=== PATIENT | male | born 1955 | race Caucasian/White ===

== ENCOUNTER → 2016-06-20 | Outpatient (CLI) | payer MEDICARE, OTHER ==
[~2016-06-20] MED LIST: BUTA1CAP5 PO; CARB200T PO; CITA40TA4 PO; LEVE500T8 PO; LISI-515 PO; TRAM50TA PO; XARE20TA PO; ZONE100C4 PO
[2016-06-20 12:45] LABS: HEMATOCRIT 40.8 % (39.0-51.0); MEAN CELL VOLUME 86.2 FL (80.0-100.0); MEAN CORPUSCULAR HEMOGLOBIN 29.2 PG (27.0-34.0); MEAN CORPUSCULAR HGB CONC 33.9 % (32.0-36.0); PLATELET COUNT 349 TH/MM3 (150-450); RED BLOOD COUNT 4.73 MIL/MM3 (4.50-5.90); RED CELL DISTRIBUTION WIDTH 14.5 % (11.6-17.2); REVIEW FLAG FINAL; WHITE BLOOD COUNT 6.1 TH/MM3 (4.0-11.0)
[2016-06-20 13:10] LABS: ANION GAP 10 MEQ/L (5-15); BICARBONATE 22.9 MEQ/L (21.0-32.0); BLOOD UREA NITROGEN 15 MG/DL (7-18); CHLORIDE 107 MEQ/L (98-107); GLUCOSE,FASTING 105 MG/DL (74-99); POTASSIUM 3.4 MEQ/L (3.5-5.1); SODIUM (NA) 140 MEQ/L (136-145)
[2016-06-20 13:20] LABS: ALKALINE PHOSPHATASE 123 U/L (45-117); ALT (GPT) 24 U/L (12-78); AST (GOT) 15 U/L (15-37); GLOMERULAR FILTRATION RATE 67 ML/MIN (>89); TOTAL BILIRUBIN ADULT 0.3 MG/DL (0.2-1.0)
== END ==
LOC: ELAB 10:53
PROVIDERS: ATTEND Specialist
DX: R53.81 Other malaise (principal); R53.83 Other fatigue; G93.3 Postviral and related fatigue syndromes; E88.9 Metabolic disorder, unspecified; Z79.891 Long term (current) use of opiate analgesic; Z51.81 Encounter for therapeutic drug level monitoring
CPT/HCPCS: 36415; 80053; 80156; 85027

== ENCOUNTER 2016-11-01 09:37 | Observation (INO) | payer MEDICARE, OTHER ==
[2016-11-01] VITALS (8 sets, daily range): BP systolic 106–159; BP diastolic 55–93; PULSE 59–100; RESP 18–32; TEMP 97.6–98.9; O2SAT 95–99
[~2016-11-01] VITALS: Ht 172.7 cm; Wt 146.0 kg
[2016-11-01] MEDS ORDERED: SODIUM CHLORIDE 0.9% FLUSH 10 ML FLUSH IVF PRN (10:00)
--- NOTE | 2016-11-01 10:17 | PD ---
HPI Chief Complaint: Cold / Flu Symptoms Time Seen by Provider: 09:48 Travel History International Travel<30 days: No Contact w/Intl Traveler<30days: No Traveled to known affect area: No History of Present Illness HPI 61 yo M arrives by EMS. He reports dyspnea while laying in bed this morning essentially waking him up from sleep. He developed chest pressure, retrosternal , non-radiating of moderate severity at about the same time, which was about 5 hours prior to ER arrival. Occasional cough, productive with white phlegm, is noted by patient over the past few days. Additionally, he reports rhinorrhea and nasal congestion. No fever reported. Pt quite smoking > 30 years ago. + hx HTN. 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 PMH includes DVT. No DM or personal hx CAD. He reports multiple family members with history CAD. No pleuritic component. PFSH Past Medical History Blood Disorders: No Anxiety: Yes Depression: Yes Cancer: No Cardiovascular Problems: No Cerebrovascular Accident: No Diminished Hearing: No Deep Vein Thrombosis: Yes Endocrine: No Genitourinary: No Headaches: No Hypertension: Yes Immune Disorder: No Musculoskeletal: No Neurologic: Yes Psychiatric: Yes Reproductive: No Respiratory: No Migraines: Yes Seizures: Yes Tetanus Vaccination: < 5 Years Influenza Vaccination: No Past Surgical History Abdominal Surgery: Yes ([place] IN ) AICD: No Arteriovenous Shunt: No Cardiac Surgery: No Cholecystectomy: Yes (1978) Ear Surgery: No Endocrine Surgery: No Eye Surgery: No Genitourinary Surgery: No Gynecologic Surgery: No Insulin Pump: No Joint Replacement: No Oral Surgery: No Pacemaker: No Thoracic Surgery: No Other Surgery: Yes ([place]IG[place] IN ) Social History Alcohol Use: Yes Tobacco Use: No (QUIT 1984, DIP CURRENTLY) Substance Use: No Allergies-Medications (Allergen,Severity, Reaction): Coded Allergies: No Known Allergies (Verified , 11/01/16) Reported Meds & Prescriptions Reported Meds & Active Scripts Active Reported Gdysovgvpw-Syfuxrhmzyenj-Qhsnrcfc 50-300-40 Mg Cap 1 Cap PO Q4H PRN Do not exceed 6 capsules/day. Tramadol (Tramadol HCl) 50 Mg Tab 50 Mg PO Q8H PRN Zonegran (Zonisamide) 100 Mg Cap 100 Mg PO QID Carbamazepine 200 Mg Tab 200 Mg PO TID Levetiracetam 500 Mg Tab 500 Mg PO BID Xarelto (Rivaroxaban) 20 Mg Tab 20 Mg PO DAILY Citalopram (Citalopram Hydrobromide) 40 Mg Tab 40 Mg PO DAILY Lisinopril 20 Mg Tab 20 Mg PO DAILY Review of Systems Except as stated in HPI: all other systems reviewed are Neg General / Constitutional: No: Fever Cardiovascular: Positive: Chest Pain or Discomfort Respiratory: Positive: Cough, Shortness of Breath Gastrointestinal: No: Nausea Physical Exam Narrative GENERAL: 61 yo M, WNWD, NAD, speaking full sentences, audible nasal congestion during speech SKIN: Warm and dry. HEAD: Atraumatic. Normocephalic. EYES: Pupils equal and round. No scleral icterus. No injection or drainage. ENT: No nasal bleeding or discharge. Mucous membranes pink and moist. NECK: Trachea midline. No JVD. CARDIOVASCULAR: tachycardia. regular rhythm. RESPIRATORY: lung clear. no tachypnea. GASTROINTESTINAL: Abdomen soft, non-tender, nondistended. Hepatic and splenic margins not palpable. MUSCULOSKELETAL: Extremities without clubbing, cyanosis, or edema. No obvious deformities. NEUROLOGICAL: Awake and alert. No obvious cranial nerve deficits. Motor grossly within normal limits. Five out of 5 muscle strength in the arms and legs. Normal speech. PSYCHIATRIC: Appropriate mood and affect; insight and judgment normal. Data Data Last Documented VS Vital Signs Date Time Temp Pulse Resp B/P Pulse Ox O2 Delivery O2 Flow Rate FiO2 11/01/16 10:00 32 96 Room Air 11/01/16 09:46 98.7 100 159/93 VS reviewed Orders Electrocardiogram (11/01/16 09:48) Basic Metabolic Panel (Bmp) (11/01/16 09:48) Ckmb (Isoenzyme) Profile (11/01/16 09:48) Complete Blood Count With Diff (11/01/16 09:48) Magnesium (Mg) (11/01/16 09:48) Prothrombin Time / Inr (Pt) (11/01/16:48) Act Partial Throm Time (Ptt) (11/01/16 09:48) Troponin I (11/01/16 09:48) Chest, Single Ap (11/01/16 09:48) Ecg Monitoring (11/01/16 09:48) Iv Access Insert/Monitor (11/01/16:48) Oximetry (11/01/16 09:48) Oxygen Administration (11/01/16 09:48) Sodium Chloride 0.9% Flush (Ns Flush) (11/01/16 10:00) CKMB (11/01/16 10:00) CKMB% (11/01/16 10:00) Activity Bed Rest With Brp (11/01/16 10:56) Vital Signs (Adult) Q4H (11/01/16 10:56) Cardiac Rhythm .As Directed (11/01/16 10:56) Notify Dr: Other .PRN (11/01/16 10:56) Notify DrWei Parameters (11/01/16 10:56) Resp Oxygen Nasal Cannula (11/01/16 ) Ckmb (Isoenzyme) Profile (11/01/16 10:56) Ckmb (Isoenzyme) Profile (11/01/16 13:56) Troponin I (11/01/16 10:56) Troponin I (11/01/16 13:56) Electrocardiogram (11/01/16 10:56) Electrocardiogram (11/01/16 13:56) ^ Obtain (11/01/16 10:56) Sodium Chloride 0.9% Flush (Ns Flush) (11/01/16 11:00) Sodium Chloride 0.9% Flush (Ns Flush) (11/01/16 21:00) Acetamin-Hydrocod 325-7.5 Mg ([place] 7.5 (11/01/16 11:00) Morphine Inj (Morphine Inj) (11/01/16 11:00) Ondansetron Inj (Zofran Inj) (11/01/16 11:00) Nitroglycerin Sl (Nitrostat Sl) (11/01/16 11:00) Aspirin (Aspirin) (11/02/16 09:00) Solution Architect / Telemetry ROSA.Q8H (11/01/16 10:56) Admit Order (Ed Use Only) (11/01/16 10:56) Labs Laboratory Tests Test 11/01/16 10:00 White Blood Count 6.8 TH/MM3 Red Blood Count 4.58 MIL/MM3 Hemoglobin 13.6 GM/DL Hematocrit 40.3 % Mean Corpuscular Volume 88.0 FL Mean Corpuscular Hemoglobin 29.7 PG Mean Corpuscular Hemoglobin 33.7 % Concent Red Cell Distribution Width 14.1 % Platelet Count 368 TH/MM3 Mean Platelet Volume 7.2 FL Neutrophils (%) (Auto) 53.4 % Lymphocytes (%) (Auto) 20.9 % Monocytes (%) (Auto) 14.7 % Eosinophils (%) (Auto) 9.8 % Basophils (%) (Auto) 1.2 % Neutrophils # (Auto) 3.6 TH/MM3 Lymphocytes # (Auto) 1.4 TH/MM3 Monocytes # (Auto) 1.0 TH/MM3 Eosinophils # (Auto) 0.7 TH/MM3 Basophils # (Auto) 0.1 TH/MM3 CBC Comment DIFF FINAL Differential Comment Prothrombin Time 10.9 SEC Prothromb Time International 1.0 RATIO Ratio Activated Partial 32.2 SEC Thromboplast Time Sodium Level 136 MEQ/L Potassium Level 4.0 MEQ/L Chloride Level 105 MEQ/L Carbon Dioxide Level 22.8 MEQ/L Anion Gap 8 MEQ/L Blood Urea Nitrogen 11 MG/DL Creatinine 1.15 MG/DL Estimat Glomerular Filtration 64 ML/MIN Rate Random Glucose 104 MG/DL Calcium Level 9.4 MG/DL Magnesium Level 2.0 MG/DL Total Creatine Kinase 197 U/L Creatine Kinase MB 0.6 NG/ML Troponin I 0.02 NG/ML MDM Medical Decision Making Medical Screen Exam Complete: Yes Emergency Medical Condition: Yes Medical Record Reviewed: Yes Differential Diagnosis NSTEMI, unstable angina, coronary vasospasm, PE, PTX, aortic dissection, pericarditis, myocarditis, endocarditis, PNA, esophageal disease, aneurysm, musculoskeletal etiologies, anxiety, cocaine/sympathomimetic abuse Narrative Course CBC & BMP Diagram 11/01/16 10:00 EKG reveals a sinus rhythm with a right bundle-branch block pattern Tn 0.02 Last 24 hours Impressions Chest X-Ray 11/01/16 0948 Signed Impressions: Service Date/Time: Tuesday, November 01, 2016 09:54 - CONCLUSION: No acute disease. Casey Foster MD This is likely having postnasal drip with cough. OTC interventions discussed with patient at bedside. Troponin measurable at 0.02 with symptoms and risk factors suggests chest pain center evaluation to be most reasonable next step. Diagnosis Primary Impression: Chest pain Qualified Code: R07.9 - Chest pain, unspecified type Additional Impression: Nasal congestion Admitting Information Admitting Physician Requests: Observation Fahad Denise MD Nov 01, 2016 10:17
[2016-11-01 10:19] LABS: AUTOMATED NEUTROPHIL # 3.6 TH/MM3 (1.8-7.7); BASOPHIL # 0.1 TH/MM3 (0-0.2); BASOPHIL % 1.2 % (0.0-2.0); EOSINOPHIL # 0.7 TH/MM3 (0-0.4); EOSINOPHIL % 9.8 % (0.0-4.0); HEMATOCRIT 40.3 % (39.0-51.0); HEMO FLAGS DIFF FINAL; LYMPH % 20.9 % (9.0-44.0); LYMPHOCYTE # 1.4 TH/MM3 (1.0-4.8); MEAN CORPUSCULAR HEMOGLOBIN 29.7 PG (27.0-34.0); MEAN CORPUSCULAR HGB CONC 33.7 % (32.0-36.0); MONO % 14.7 % (0.0-8.0); NEUT % 53.4 % (16.0-70.0); PLATELET COUNT 368 TH/MM3 (150-450); RED BLOOD COUNT 4.58 MIL/MM3 (4.50-5.90); RED CELL DISTRIBUTION WIDTH 14.1 % (11.6-17.2); WHITE BLOOD COUNT 6.8 TH/MM3 (4.0-11.0)
--- NOTE | 2016-11-01 10:19 | RADRPT ---
EXAM DATE/TIME: 11/01/2016 09:54 [facility] COMPARISON: No previous studies available for comparison. INDICATIONS : Short of breath with wheezing. MEDICAL HISTORY : None. SURGICAL HISTORY : None. ENCOUNTER: Initial ACUITY: 2 days PAIN SCORE: 0/10 LOCATION: Bilateral chest FINDINGS: A single view of the chest demonstrates the lungs to be symmetrically aerated without evidence of mas s, infiltrate or effusion. The cardiomediastinal contours are unremarkable. Osseous structures are intact. There are multiple old healed bilateral rib fractures. CONCLUSION: No acute disease. Casey Foster MD on November 01, 2016 at 10:17 Board Certified Radiologist. This report was verified electronically.
[2016-11-01 10:26] LABS: APTT (PATIENT) 32.2 SEC (24.3-30.1); PROTHROMBIN TIME - PATIENT 10.9 SEC (9.8-11.6)
[2016-11-01 10:37] LABS: CREATINE KINASE 197 U/L (39-308)
[2016-11-01 10:50] LABS: CKMB 0.6 NG/ML (0.5-3.6)
[2016-11-01 10:51] LABS: ANION GAP 8 MEQ/L (5-15); BICARBONATE 22.8 MEQ/L (21.0-32.0); BLOOD UREA NITROGEN 11 MG/DL (7-18); CHLORIDE 105 MEQ/L (98-107); GLOMERULAR FILTRATION RATE 64 ML/MIN (>89); SODIUM (NA) 136 MEQ/L (136-145)
[2016-11-01] MEDS ORDERED: MORPHINE SULFATE 4 MG/ML INJ IV PRN (11:00)
[2016-11-01] MEDS ORDERED: ACETAMINOPHEN/HYDROcodone 325 MG/7.5 MG TAB PO PRN (11:00)
[2016-11-01] MEDS ORDERED: SODIUM CHLORIDE 0.9% FLUSH 10 ML FLUSH IV FLUSH PRN (11:00)
[2016-11-01] MEDS ORDERED: NITROGLYCERIN 0.4 MG SL 25 TABS/BTL SL PRN (11:00)
[2016-11-01] MEDS ORDERED: ONDANSETRON HCL 4 MG/2 ML VIAL IV PRN (11:00)
--- NOTE | 2016-11-01 13:50 | EKG ---
Date Performed: 11/01/2016 Time Performed: 09:56:14 PTAGE: 61 years EKG: Sinus rhythm RIGHT BUNDLE BRANCH BLOCK ABNORMAL ECG Compared to prior tracing no significant change PREVIOUS TRACING : 03/03/2016 17.11 DOCTOR: Lew Burrows Interpretating Date/Time 11/01/2016 13:49:30
[2016-11-01] MEDS ORDERED: FUROSEMIDE 20 MG/2 ML VIAL IV PUSH ONE (14:00)
--- NOTE | 2016-11-01 14:09 | HHI.HP ---
[facility] Primary Care Physician Ruel Cavazos, PhD, MD Chief Complaint Chest pain History of Present Illness 61-year-old male with history of hypertension, seizure disorder, depression, anxiety presents to emergency room for further evaluation of chest pain. States 2 days ago he developed chest congestion, a nonproductive cough, and sinus drainage. Yesterday afternoon he developed substernal chest pain with coughing. Characterized as sharp. No radiation of pain. Duration last only when coughs,quickly relieved after coughing episode over. No associated symptoms of nausea, vomiting, diaphoresis, or shortness of breath. Precipitating factors he states "having a cold." No known relieving factors. He started taking wzve-vot-fdgxufr cold medications yesterday. (Cathie Richardson) Review of Systems General: No fatigue, weakness, fever, chills, or change in appetite. Recent illness 2 days described as sinus and chest congestion accompanied with a cough. HEENT: Sinus congestion and nasal drainage 2 days. No N[place]ON, no vision changes, no dysphasia CV: As stated above. Denies any current chest pain or pressure. Chest pain only occurs when coughing. Denies chest pain with exertion or at rest. No personal history of coronary artery disease or congestive heart failure. RESP: Nonproductive cough 2 days, this afternoon began to cough white, thick sputum. No SOB, wheeze, or hemoptysis. No history of asthma. History of Sleep apnea. GI: No nausea, vomiting, bowel changes, or diarrhea reports chronic constipation , moves bowels every 3 days. Last bowel movement 2 days ago. No distention, melena, or blood in the stool. : No dysuria, urgency, frequency, or history of kidney stones EXT: Chronic bilateral lower leg edema, no paraesthesias MS: No discomfort or change in ROM. Ambulates independently without a cane or walker. Has a caregiver daily for 6 hours to assist with ADLs. NEURO: History of seizures. Last seizure reported to be in 2014. No difficulty with balance, LOC, motor/sensory deficits PSYCH: History of anxiety and depression. SKIN: No rashes, no concerning lesions (Cathie Richardson) Past Family Social History Allergies: Coded Allergies: No Known Allergies (Verified , 11/01/16) Past Medical History Seizure disorder, hypertension, DVT, depression, anxiety, psychiatric issues, sleep apnea Past Surgical History Cholecystectomy, right ankle ORIF Reported Medications Active Reported Zvwwdfjkvb-Lhyaohfytijfz-Nwlzbwtx 50-300-40 Mg Cap 1 Cap PO Q4H PRN Do not exceed 6 capsules/day. Tramadol (Tramadol HCl) 50 Mg Tab 50 Mg PO Q8H PRN Zonegran (Zonisamide) 100 Mg Cap 100 Mg PO QID Carbamazepine 200 Mg Tab 200 Mg PO TID Levetiracetam 500 Mg Tab 500 Mg PO BID Xarelto (Rivaroxaban) 20 Mg Tab 20 Mg PO DAILY Citalopram (Citalopram Hydrobromide) 40 Mg Tab 40 Mg PO DAILY Lisinopril 20 Mg Tab 20 Mg PO DAILY Active Ordered Medications Current Medications Medications (Trade) Dose Ordered Sig/Sydnie Route Start Time Stop Time Status Last Admin (NS Flush) 2 ml UNSCH PRN IVF 11/01/16 10:00 (NS Flush) 2 ml UNSCH PRN IV FLUSH 11/01/16 11:00 (NS Flush) 2 ml BID IV FLUSH 11/01/16 21:00 ([place] 7.5-325 Mg) 1 tab Q4H PRN PO 11/01/16 11:00 (Morphine Inj) 2 mg Q4H PRN IV 11/01/16 11:00 (Zofran Inj) 4 mg Q6H PRN IV 11/01/16 11:00 (Nitrostat Sl) 0.4 mg Q5M PRN SL 11/01/16 11:00 (Aspirin) 325 mg DAILY PO 11/02/16 09:00 (Lasix Inj) 20 mg ONCE ONCE IV PUSH 11/01/16 14:00 11/01/16 14:01 UNV Family History Noncontributory for early onset cardiovascular disease Social History Known hypertension. No known diabetes, personal coronary artery disease, or hyperlipidemia. Chews tobacco. Quit smoking tobacco "years ago." Denies any alcohol or illegal drug use. Has a daily caregiver to assist with ADLs. Ambulates independently without a cane or walker. Past cardiac testing None (Cathie Richardson) Physical Exam Vital Signs Vital Signs Date Time Temp Pulse Resp B/P Pulse Ox O2 Delivery O2 Flow Rate FiO2 11/01/16 12:51 93 11/01/16 12:27 97.9 87 22 133/80 99 11/01/16 12:11 96 11/01/16 12:03 86 28 137/89 96 Room Air 11/01/16 10:00 32 96 Room Air 11/01/16 09:46 98.7 100 32 159/93 96 Physical Exam GENERAL: Alert WN, WD, NAD, obese male who appears older than stated age. HEAD: NC, AT EYES: Sclera clear, conjunctiva without injection, pupils equal and round ENT: Mucous membranes pink and moist, post nasal discharge, no bleeding NECK: Supple, no masses, trachea midline CV: RRR, without murmur, rub, gallop, no JVD, S1-S2 no S3-S4. No carotid bruits. RESP: Rhonchi bilateral, inspiratory and expiratory wheeze, no rails. symmetrical chest rise, nonlabored, able to speak in full sentences ABD: Soft, NT, ND, no masses, positive bowel tones, obese EXT: Pulses +14, +1 pitting dependent edema MS: Normal tone 4 extremities, nontender, no obvious deformities, full range of motion NEURO: CN II through CN XII grossly intact, motor strength 5/5, gait WNL PSYCH: A+O 3, appropriate speech, appropriate mood and affect, insight and judgment SKIN: Normal turgor, normal texture, no lesions, no rashes, brisk cap refill, thick toenails Laboratory Laboratory Tests Test 11/01/16 10:00 White Blood Count 6.8 Red Blood Count 4.58 Hemoglobin 13.6 Hematocrit 40.3 Mean Corpuscular Volume 88.0 Mean Corpuscular Hemoglobin 29.7 Mean Corpuscular Hemoglobin 33.7 Concent Red Cell Distribution Width 14.1 Platelet Count 368 Mean Platelet Volume 7.2 Neutrophils (%) (Auto) 53.4 Lymphocytes (%) (Auto) 20.9 Monocytes (%) (Auto) 14.7 Eosinophils (%) (Auto) 9.8 Basophils (%) (Auto) 1.2 Neutrophils # (Auto) 3.6 Lymphocytes # (Auto) 1.4 Monocytes # (Auto) 1.0 Eosinophils # (Auto) 0.7 Basophils # (Auto) 0.1 CBC Comment DIFF FINAL Differential Comment Prothrombin Time 10.9 Prothromb Time International 1.0 Ratio Activated Partial 32.2 Thromboplast Time Sodium Level 136 Potassium Level 4.0 Chloride Level 105 Carbon Dioxide Level 22.8 Anion Gap 8 Blood Urea Nitrogen 11 Creatinine 1.15 Estimat Glomerular Filtration 64 Rate Random Glucose 104 Calcium Level 9.4 Magnesium Level 2.0 Total Creatine Kinase 197 Creatine Kinase MB 0.6 Troponin I 0.02 (Cathie Richardson) Result Diagram: 11/01/16 1000 11/01/16 1000 Imaging Last Impressions Chest X-Ray 11/01/16 0948 Signed Impressions: Service Date/Time: Tuesday, November 01, 2016 09:54 - CONCLUSION: No acute disease. Casey Foster MD Course EKG NSR, right bundle branch block (Cathie Richardson) Assessment and Plan Assessment and Plan Atypical chest painadmitted to chest pain center. Seen and evaluated by Dr. Law. Will rule out with 3 sets of EKGs and cardiac enzymes. If ruled out will discharge later this afternoon without further cardiac testing. Patient agreeable to plan a care. Viral syndromeguaifenesin 200 mg 1 dose. Symptom management of getting plenty of fluids and rest. Encouraged a low sodium diet and weight reduction. (Cathie Richardson) Assessment and Plan Patient seen with LUNG SPLITTER and examined. H&P as outlined above is appropriate and accurate. Discussed together and plan reviewed and agree with. (Nate Law MD) Cathie Richardson Nov 01, 2016 14:09 Nate Law MD Nov 01, 2016 15:21
[2016-11-01 14:38] LABS: CREATINE KINASE 210 U/L (39-308)
[2016-11-01 14:50] LABS: CKMB 0.5 NG/ML (0.5-3.6)
[2016-11-01] MEDS ORDERED: guaiFENesin SOLUTION 200 MG/10 ML CUP PO ONE (16:00)
[2016-11-01 18:11] LABS: CREATINE KINASE 89 U/L (39-308)
--- NOTE | 2016-11-01 18:13 | HHI.DCPOC ---
Discharge Care Plan Diagnosis: (1) Atypical chest pain (2) Viral syndrome Goals to Promote Your Health * To prevent worsening of your condition and complications * To maintain your health at the optimal level Directions to Meet Your Goals Take your medications as prescribed Follow your dietary instruction Follow activity as directed Keep your appointments as scheduled Take your immunizations and boosters as scheduled If your symptoms worsen call your PCP, if no PCP go to Urgent Care Center or Emergency Room Smoking is Dangerous to Your Health. Avoid second hand smoke Call the 24-hour hour crisis hotline for domestic abuse at Cathie Richardson Nov 01, 2016 18:13
[2016-11-01] MEDS ORDERED: SODIUM CHLORIDE 0.9% FLUSH 10 ML FLUSH IV FLUSH SCH (21:00)
[2016-11-02] MEDS ORDERED: ASPIRIN 325 MG TAB PO SCH (09:00)
--- NOTE | 2016-11-02 16:30 | EKG ---
Date Performed: 11/01/2016 Time Performed: 17:37:24 PTAGE: 61 years EKG: Sinus rhythm RIGHT BUNDLE BRANCH BLOCK ABNORMAL ECG PREVIOUS TRACING : 11/01/2016 13.15 Compared to prior tracing no significant change DOCTOR: Manjit Denise Interpretating Date/Time 11/02/2016 16:29:11
--- NOTE | 2016-11-02 16:55 | EKG ---
Date Performed: 11/01/2016 Time Performed: 13:15:34 PTAGE: 61 years EKG: Sinus rhythm RIGHT BUNDLE BRANCH BLOCK ABNORMAL ECG PREVIOUS TRACING : 11/01/2016 09.56 Compared to prior tracing no significant change DOCTOR: Manjit Denise Interpretating Date/Time 11/02/2016 16:53:26
== END 2016-11-01 18:23 | disposition home or self-care (01) ==
LOC: NEPD 09:37 → NEDA 10:58 → NEPFCDU 12:14
PROVIDERS: ADMIT Internal Medicine Interventional Cardiology; ATTEND Internal Medicine Interventional Cardiology
DX: R07.89 Other chest pain (principal); B34.9 Viral infection, unspecified; I45.10 Unspecified right bundle-branch block; R05 Cough; R09.89 Other specified symptoms and signs involving the circulatory and respiratory systems; R07.2 Precordial pain; R09.81 Nasal congestion; R00.0 Tachycardia, unspecified; R94.31 Abnormal electrocardiogram [ECG] [EKG]; R09.82 Postnasal drip; R60.0 Localized edema; R06.02 Shortness of breath; R06.2 Wheezing; R06.00 Dyspnea, unspecified; I10 Essential (primary) hypertension; G40.909 Epilepsy, unspecified, not intractable, without status epilepticus; G43.909 Migraine, unspecified, not intractable, without status migrainosus; F32.9 Major depressive disorder, single episode, unspecified; F41.9 Anxiety disorder, unspecified; F17.220 Nicotine dependence, chewing tobacco, uncomplicated; Z79.899 Other long term (current) drug therapy; Z79.01 Long term (current) use of anticoagulants; Z82.49 Family history of ischemic heart disease and other diseases of the circulatory system
CPT/HCPCS: 71010; 80048; 82550; 82552; 83735; 84484; 85025; 85610; 85730; 93005; 99285; G0378; J1940

== ENCOUNTER 2017-02-21 11:27 | Emergency (ER) | payer MEDICARE, OTHER ==
[~2017-02-21] VITALS: Ht 170.2 cm; Wt 140.0 kg
[~2017-02-21 11:27] MED LIST changes: -ZONE100C4 PO; +ZONI1CAP17 PO
[2017-02-21 11:30] VITALS: BP 222/113; PULSE 81; RESP 19; TEMP 98.6; O2SAT 98
--- NOTE | 2017-02-21 12:03 | PD ---
HPI Chief Complaint: Musculoskeletal Complaint Time Seen by Provider: 11:51 Travel History International Travel<30 days: No Contact w/Intl Traveler<30days: No Traveled to known affect area: No History of Present Illness HPI 61-year-old male complains of neck pain. Patient has history of neck pain for the past 2 years. Patient has been seen by personal physician for that. Patient also has chronic dry cough. Patient's unable to tell me how long the cough has been going on. Patient has history of seizure, CAD. Patient unable to tell me what medication he is on. Patient denies any headache. Patient denies any chest pain or shortness of breath. Patient denies abdominal pain. Patient denies any focal weakness or numbness of extremity. PFSH Past Medical History Blood Disorders: No Anxiety: Yes Depression: Yes Heart Rhythm Problems: No Cancer: No Cardiac Catheterization: No Cardiovascular Problems: No High Cholesterol: No Congestive Heart Failure: No Cerebrovascular Accident: No Diabetes: No Diminished Hearing: No Deep Vein Thrombosis: Yes Endocrine: No Genitourinary: No Headaches: No Hypertension: Yes Immune Disorder: No Musculoskeletal: No Neurologic: Yes Psychiatric: Yes Reproductive: No Respiratory: No Migraines: Yes Seizures: Yes Tetanus Vaccination: < 5 Years Past Surgical History Abdominal Surgery: Yes (LIGIA IN ) AICD: No Arteriovenous Shunt: No Cardiac Surgery: No Cholecystectomy: Yes (1978) Coronary Artery Bypass Graft: No Ear Surgery: No Endocrine Surgery: No Eye Surgery: No Genitourinary Surgery: No Gynecologic Surgery: No Insulin Pump: No Joint Replacement: No Oral Surgery: No Pacemaker: No Thoracic Surgery: No Other Surgery: Yes Social History Alcohol Use: Yes Tobacco Use: No (QUIT 1984, DIP CURRENTLY) Substance Use: No Allergies-Medications (Allergen,Severity, Reaction): Coded Allergies: No Known Allergies (Verified , 02/21/17) Reported Meds & Prescriptions Reported Meds & Active Scripts Active Reported Syudlouejo-Geangonyizevb-Bshzphej 50-300-40 Mg Cap 1 Cap PO Q4H PRN Do not exceed 6 capsules/day. Tramadol (Tramadol HCl) 50 Mg Tab 50 Mg PO Q8H PRN Zonegran (Zonisamide) 100 Mg Cap 100 Mg PO QID Carbamazepine 200 Mg Tab 200 Mg PO TID Levetiracetam 500 Mg Tab 500 Mg PO BID Xarelto (Rivaroxaban) 20 Mg Tab 20 Mg PO DAILY Citalopram (Citalopram Hydrobromide) 40 Mg Tab 40 Mg PO DAILY Lisinopril 20 Mg Tab 20 Mg PO DAILY Review of Systems General / Constitutional: No: Fever Eyes: No: Visual changes HENT: Positive: Neck Pain, No: Headaches Cardiovascular: No: Chest Pain or Discomfort Respiratory: No: Shortness of Breath Gastrointestinal: No: Abdominal Pain Genitourinary: No: Dysuria Musculoskeletal: No: Pain Skin: No Rash Neurologic: No: Weakness Psychiatric: No: Depression Endocrine: No: Polydipsia Hematologic/Lymphatic: No: Easy Bruising Physical Exam Narrative GENERAL: Well-nourished, well-developed patient. SKIN: Focused skin assessment warm/dry. HEAD: Normocephalic. EYES: No scleral icterus. No injection or drainage. NECK: Supple, trachea midline. No JVD or lymphadenopathy. Mild tenderness on palpation paraspinal areas cervical spine. No midline tenderness. CARDIOVASCULAR: Regular rate and rhythm without murmurs, gallops, or rubs. RESPIRATORY: Breath sounds equal bilaterally. No accessory muscle use. GASTROINTESTINAL: Abdomen soft, non-tender, nondistended. MUSCULOSKELETAL: No cyanosis, or edema. BACK: Nontender without obvious deformity. No CVA tenderness. Neurologic exam: Patient's awake and alert oriented to place and person. Patient moves all extremity well. No obvious focal neurological deficit. Data Data Last Documented VS Vital Signs Date Time Temp Pulse Resp B/P (MAP) Pulse Ox O2 Delivery O2 Flow Rate FiO2 02/21/17 12:41 85 20 146/96 (113) 97 02/21/17 11:30 98.6 Orders Orders Chest, Single Ap (02/21/17 11:57) Spine, Cervical - Ltd (Ap&Lat) (02/21/17 11:57) MDM Medical Decision Making Medical Screen Exam Complete: Yes Emergency Medical Condition: Yes Interpretation(s) Last Impressions Chest X-Ray 02/21/171156 Signed Impressions: Service Date/Time: Tuesday, February 21, 2017 12:32 - CONCLUSION: Cardiomegaly. Clear lungs. Manny Peña Jr., MD Cervical Spine X-Ray 02/21/171156 Signed Impressions: Service Date/Time: Tuesday, February 21, 2017 12:25 - CONCLUSION: Negative limited 2 view trauma study. Vern Fontanez MD Differential Diagnosis Differential diagnosis including osteoarthritis, muscle spasm, disc disease. Narrative Course 61-year-old male with progressive neck pain. Diagnosis Primary Impression: Arthralgia, cervical spine Patient Instructions: General Instructions Additional Instructions: Take medication as needed for pain. Follow-up with personal physician and orthopedist. Take stool softener with pain medication. Med/Other Pt SpecificInfo: Prescription(s) given Scripts Acetaminophen-Codeine (Tylenol-Codeine #3) 300-30 mg Tab 1 TAB PO Q6HR Y for PAIN, #30 TAB 0 Refills Prov: Luis Quinteros MD 02/21/17 Disposition: 01 DISCHARGE HOME Condition: Stable Luis Quinteros MD Feb 21, 2017 12:03
[2017-02-21 12:41] VITALS: BP 146/96; PULSE 85; RESP 20; O2SAT 97
--- NOTE | 2017-02-21 13:04 | RADRPT ---
EXAM DATE/TIME: 02/21/2017 12:25 [facility] COMPARISON: No previous studies available for comparison. INDICATIONS : Neck pain, fell a lot with seizures MEDICAL HISTORY : seizures and epilepsy SURGICAL HISTORY : None. ENCOUNTER: Initial ACUITY: >1 year PAIN SCORE: Non-responsive. LOCATION: Bilateral neck FINDINGS: Two projection examination was performed. There is normal alignment and curvature of the vertebral b odies down to the level of C7. No evidence of fracture or subluxation. Vertebral body height is jovan ntained. The disc spaces are maintained. The prevertebral soft tissues are of normal thickness. Th e atlanto-axial articulation is intact. CONCLUSION: Negative limited 2 view trauma study. Vern Fontanez MD on February 21, 2017 at 13:02 Board Certified Radiologist. This report was verified electronically.
--- NOTE | 2017-02-21 13:06 | RADRPT ---
EXAM DATE/TIME: 02/21/2017 12:32 [facility] COMPARISON: CHEST SINGLE AP, November 01, 2016, 9:54. INDICATIONS : Chest pain.. MEDICAL HISTORY : seizures, epilepsy SURGICAL HISTORY : None. ENCOUNTER: Initial ACUITY: >1 year PAIN SCORE: Non-responsive. LOCATION: Bilateral chest FINDINGS: A single view of the chest demonstrates the lungs to be symmetrically aerated without evidence of mas s, infiltrate or effusion. Mild cardiomegaly. Old bilateral rib fractures. CONCLUSION: Cardiomegaly. Clear lungs. Manny Peña Jr., MD on February 21, 2017 at 13:04 Board Certified Radiologist. This report was verified electronically.
[2017-02-21] MEDS ORDERED: TYLETAB34 PO (14:15)
[2017-02-21 14:26] VITALS: BP 152/74
== END 2017-02-21 14:27 | disposition home or self-care (01) ==
LOC: NEPD 11:27
DX: M54.2 Cervicalgia (principal); I51.7 Cardiomegaly; R05 Cough; F41.9 Anxiety disorder, unspecified; F32.9 Major depressive disorder, single episode, unspecified; I10 Essential (primary) hypertension; Z79.899 Other long term (current) drug therapy; Z86.718 Personal history of other venous thrombosis and embolism
CPT/HCPCS: 71010; 72040; 99284

== ENCOUNTER 2017-03-17 05:42 | Emergency (ER) | payer MEDICARE, OTHER ==
[~2017-03-17] VITALS: Ht 172.7 cm; Wt 140.0 kg
[~2017-03-17 05:42] MED LIST changes: +TYLETAB34 PO
[2017-03-17 06:00] VITALS: BP 175/97; PULSE 84; RESP 16; TEMP 98.7; O2SAT 96
--- NOTE | 2017-03-17 06:18 | PD ---
HPI Chief Complaint: fall Time Seen by Provider: 05:57 Travel History International Travel<30 days: No Contact w/Intl Traveler<30days: No History of Present Illness HPI The patient is a 61 year old male who presents to the [facility] emergency department with a history of a fall at approximately 12:15 AM today. The patient reports that he called ambulance services when he noticed that his left knee felt like it might give out. He reports that he hit his forehead and his left knee. The patient reports that he slipped and fell when he he was getting out of the shower and tripped on his towel. The patient reports having neck pain. He denies having any numbness or tingling to his arms or legs. He reports having chronic shortness of breath that is no worse than usual. He reports that he does have sleep apnea and uses CPAP. The patient reports having a history of high blood pressure. The patient's systolic blood pressure prior to arrival was 180. The patient reports that he has been out of his blood pressure medications for the last 2 weeks. The patient reports that he does take an aspirin daily. He did take his usual is all aspirin yesterday. Otherwise on review of systems, the patient denies having any recent known fevers, cough, congestion, chest pain, abdominal pain, vomiting, diarrhea, urinary symptoms, or other neurologic symptoms. The patient reports that his tetanus was last updated a year ago. The patient initially reported that he was not on any blood pressure medications, however after reviewing the record it was noted that the patient was on Xarelto. The patient is unsure whether he has been taking his particular medication on a regular basis. [facility] Past Medical History Narrative Medical The patient's past medical history is significant for seizure disorder, arthritis, hypertension, anxiety and depression, history of DVT. Blood Disorders: No Anxiety: Yes Depression: Yes Heart Rhythm Problems: No Cancer: No Cardiac Catheterization: No Cardiovascular Problems: No High Cholesterol: No Congestive Heart Failure: No Cerebrovascular Accident: No Diabetes: No Diminished Hearing: No Deep Vein Thrombosis: Yes Endocrine: No Genitourinary: No Headaches: No Hypertension: Yes Immune Disorder: No Musculoskeletal: No Neurologic: Yes Psychiatric: Yes Reproductive: No Respiratory: No Migraines: Yes Seizures: Yes Past Surgical History Narrative Surgical The patient has a past surgical history significant for cholecystectomy, ankle ORIF. Abdominal Surgery: Yes (LIGIA IN 79) AICD: No Arteriovenous Shunt: No Cardiac Surgery: No Cholecystectomy: Yes (1978) Coronary Artery Bypass Graft: No Ear Surgery: No Endocrine Surgery: No Eye Surgery: No Genitourinary Surgery: No Gynecologic Surgery: No Insulin Pump: No Joint Replacement: No Oral Surgery: No Pacemaker: No Thoracic Surgery: No Other Surgery: Yes Social History Alcohol Use: Yes Tobacco Use: No (QUIT 1984, DIP CURRENTLY) Substance Use: No Allergies-Medications (Allergen,Severity, Reaction): Coded Allergies: No Known Allergies (Verified , 02/21/17) Reported Meds & Prescriptions Reported Meds & Active Scripts Active Reported Zonegran (Zonisamide) 100 Mg Cap 100 Mg PO QID Carbamazepine 200 Mg Tab 200 Mg PO TID Levetiracetam 500 Mg Tab 500 Mg PO BID Xarelto (Rivaroxaban) 20 Mg Tab 20 Mg PO DAILY Citalopram (Citalopram Hydrobromide) 40 Mg Tab 40 Mg PO DAILY Lisinopril 20 Mg Tab 20 Mg PO DAILY Review of Systems General / Constitutional: No: Fever Eyes: No: Visual changes HENT: Positive: Headaches, Neck Stiffness, Neck Pain, No: Congestion Cardiovascular: Positive: Dyspnea on exertion, No: Chest Pain or Discomfort Respiratory: Positive: Shortness of Breath, No: Cough Gastrointestinal: No: Nausea, Vomiting, Diarrhea, Abdominal Pain Genitourinary: No: Dysuria Musculoskeletal: No: Pain Skin: No Rash Neurologic: No: Weakness, Focal Abnormalities, Change in Mentation, Slurred Speech, Sensory Disturbance Psychiatric: No: Depression Endocrine: No: Polydipsia Hematologic/Lymphatic: No: Easy Bruising Physical Exam Narrative General: The patient is a well-developed well-nourished male in no acute distress. The patient is brought in by ambulance services, however he is not currently back boarded or with C-spine immobilization applied. The patient had C-spine immobilization applied by mn. Head and Neck exam: Head is normocephalic, evidence of swelling to the left side of the forehead. No facial bone tenderness or increased facial bone mobility noted on palpation. The patient is noted to have an abrasion over the nasal bridge where his glasses came in contact with his nose. Eyes: EOMI, pupils are equal round and reactive to light. Nose: Midline septum with pink mucous membranes Mouth: Dentition unremarkable. Moist mucus membranes. Posterior oropharynx is not erythematous. No tonsillar hypertrophy. Uvula midline. Airway patent. Neck: The patient is immobilized in a cervical collar. No tracheal deviation. The trachea appears midline. Cardiovascular: Regular rate and rhythm without murmurs, gallops, or rubs. Lungs: Clear to auscultation bilaterally. No wheezes, rhonchi, or rales. No chest wall tenderness to palpation. No erythema or ecchymosis noted. No crepitus , step off, or flail segment noted. Abdomen: Soft, without tenderness to palpation in all 4 quadrants of the abdomen. No guarding, rebound, or rigidity. No erythema or ecchymosis noted. Extremities: No instability or pain noted on pelvic rock. No clubbing, cyanosis , or edema. 2+ pulses in all 4 extremities. No extremity tenderness or deformity noted on palpation or passive/ active range of motion, except with tenderness on palpation anteriorly along the left knee. There is some ecchymosis developing just distal to the patella overlying the proximal tibia. There is no step-off or crepitus. No ligament laxity. No deformity noted. The patient has full range of motion. The patient has no shortening or rotation to his lower extremities. Back: No spinous process tenderness to palpation. No stepoff or crepitus noted. No costovertebral angle tenderness to palpation. No erythema or ecchymosis. Neurologic Exam: Cranial nerves 2-12 were intact on exam. Strength is 5/5 in all 4 extremities. No sensory deficits noted. Skin Exam: No rash noted. Intact skin that is warm and dry. Data Data Last Documented VS Vital Signs Date Time Temp Pulse Resp B/P (MAP) Pulse Ox O2 Delivery O2 Flow Rate FiO2 03/17/17 06:39 80 20 98 03/17/17 06:00 98.7 175/97 (123) Orders Orders Ct Brain W/O Iv Contrast(Rout) (03/17/17 05:59) Ct Cerv Spine W/O Contrast (03/17/17 05:59) Knee, Complete (4vws) (03/17/17 05:59) Ice/Cold Pack (03/17/17 05:59) Ed Discharge Order (03/17/17 07:12) MDM Medical Decision Making Medical Screen Exam Complete: Yes Emergency Medical Condition: Yes Medical Record Reviewed: Yes Interpretation(s) Last Impressions Knee X-Ray 03/17/17 0559 Signed Impressions: Service Date/Time: Friday, March 17, 2017 06:14 - CONCLUSION: No fracture or subluxation of the left knee. Nate Reed MD Head CT 03/17/17 0559 Signed Impressions: Service Date/Time: Friday, March 17, 2017 06:19 - CONCLUSION: No bleed or other acute intracranial abnormality. Left frontal scalp contusion. Nate Reed MD Cervical Spine CT 03/17/17 0559 Signed Impressions: Service Date/Time: Friday, March 17, 2017 06:19 - CONCLUSION: Intact cervical spine. Nate Reed MD Differential Diagnosis Intracranial hemorrhage, versus cervical spine injury, versus left knee fracture , versus left knee contusion. Narrative Course During the course of the patients emergency department visit, the patients history, examination, and differential diagnosis were reviewed with the patient. The patient was placed on a traffic monitor specialist with oximetry and frequent blood pressure monitoring. The patient had a CT scan of the head and neck ordered, left knee x-ray ordered. The patient was initially provided Tylenol for pain. An ice pack for swelling. Radiology studies were reviewed and remarkable for a CT scan of the brain shows no bleed or other acute intracranial abnormality, left frontal scalp contusion. Knee x-ray shows no fracture or subluxation of the left knee. CT scan of the C-spine shows an intact cervical spine, no other acute abnormality. The patient is instructed on rest, ice, elevation, of any areas of swelling. The patient is instructed to take Tylenol as needed for discomfort as written on the package. The patient is resting comfortably and feels better, is alert and in no distress. The patients results and examination findings were discussed with the patient. The repeat examination is unremarkable and benign. The history, exam, diagnostic testing, and current condition do not suggest any significant pathology to warrant further testing, continued ED treatment, admission, or surgical evaluation at this point. The vital signs have been stable. The patient does not have uncontrollable pain, intractable vomiting, or other significant symptoms. The patient's condition is stable and appropriate for discharge. The patient will pursue further outpatient evaluation with a primary care physician or other designated or consulting physician as indicated in the discharge instructions. The patient expressed understanding and was agreeable with this plan. Diagnosis Primary Impression: Head injury Qualified Codes: S09.90XA - Unspecified injury of head, initial encounter Additional Impression: Contusion of left knee Qualified Codes: S80.02XA - Contusion of left knee, initial encounter Referrals: Primary Care Physician 1 day Patient Instructions: Contusion in Adults (ED), General Instructions, Head Injury (ED) Additional Instructions: The patient is instructed on rest, ice, elevation, of any areas of swelling. The patient is instructed to take Tylenol as needed for discomfort as written on the package. Disposition: 01 DISCHARGE HOME Condition: Stable Yary Chandra MD Mar 17, 2017 06:18
--- NOTE | 2017-03-17 06:38 | RADRPT ---
EXAM DATE/TIME: 03/17/2017 06:14 [facility] COMPARISON: No previous studies available for comparison. INDICATIONS : Left knee pain post fall MEDICAL HISTORY : Seizures, Epilepsy SURGICAL HISTORY : None. ENCOUNTER: Initial ACUITY: 1 day PAIN SCORE: 6/10 LOCATION: Left Knee FINDINGS: Four view examination of the left knee demonstrates no evidence of fracture or dislocation. Bony min eralization is normal. The articular surfaces are intact. The suprapatellar soft tissues have a nor mal configuration. CONCLUSION: No fracture or subluxation of the left knee. Nate Reed MD on March 17, 2017 at 6:37 Board Certified Radiologist. This report was verified electronically.
--- NOTE | 2017-03-17 06:40 | RADRPT ---
EXAM DATE/TIME: 03/17/2017 06:19 [facility] COMPARISON: No previous studies available for comparison. INDICATIONS : Trauma, trip and fall. RADIATION DOSE: 39.46 CTDIvol (mGy) MEDICAL HISTORY : Deep venous thrombosis. Seizures. Hypertension. SURGICAL HISTORY : Cholecystectomy. ENCOUNTER: Initial ACUITY: 1 day PAIN SCALE: 4/10 LOCATION: cranial TECHNIQUE: Multiple contiguous axial images were obtained of the head. Using automated exposure control and adj ustment of the mA and/or kV according to patient size, radiation dose was kept as low as reasonably a chievable to obtain optimal diagnostic quality images. DICOM format image data is available electro nically for review and comparison. FINDINGS: CEREBRUM: The ventricles are normal for age. No evidence of midline shift, mass lesion, hemorrhage or acute in farction. No extra-axial fluid collections are seen. POSTERIOR FOSSA: The cerebellum and brainstem are intact. The 4th ventricle is midline. The cerebellopontine angle i s unremarkable. EXTRACRANIAL: There is a left frontal scalp contusion. SKULL: The calvaria is intact. No evidence of skull fracture. CONCLUSION: No bleed or other acute intracranial abnormality. Left frontal scalp contusion. Nate Reed MD on March 17, 2017 at 6:37 Board Certified Radiologist. This report was verified electronically.
--- NOTE | 2017-03-17 06:44 | RADRPT ---
EXAM DATE/TIME: 03/17/2017 06:19 [facility] COMPARISON: CT CERVICAL SPINE W/O CONTRAST, March 03, 2016, 18:43. INDICATIONS : Trauma, trip and fall. RADIATION DOSE: 31.03 CTDIvol (mGy) ; Patient body habitus MEDICAL HISTORY : Deep venous thrombosis. Hypertension. Seizures. SURGICAL HISTORY : Cholecystectomy. ENCOUNTER: Initial ACUITY: 1 day PAIN SCALE: 4/10 LOCATION: neck TECHNIQUE: Volumetric scanning of the cervical spine was performed. Multiplanar reconstructions in the sagittal, coronal and oblique axial planes were performed. Using automated exposure control and adjustment o f the mA and/or kV according to patient size, radiation dose was kept as low as reasonably achievable to obtain optimal diagnostic quality images. DICOM format image data is available electronically f or review and comparison. FINDINGS: VERTEBRAE: Normal vertebral body height. ALIGNMENT: No evidence of subluxation. C2-C3: The bony spinal canal is normal in size. No evidence of disc bulge or herniation. The neural forami na are bilaterally patent. C3-C4: The bony spinal canal is normal in size. No evidence of disc bulge or herniation. The neural forami na are bilaterally patent. C4-C5: The bony spinal canal is normal in size. No evidence of disc bulge or herniation. The neural forami na are bilaterally patent. C5-C6: Mild disc space narrowing and mild bilateral uncovertebral and facet osteoarthritis. C6-C7: Mild disc space narrowing and mild bilateral uncovertebral and facet osteoarthritis. C7-T1: There is mild bilateral facet osteoarthritis. CONCLUSION: Intact cervical spine. Nate Rede MD on March 17, 2017 at 6:40 Board Certified Radiologist. This report was verified electronically.
[2017-03-17 07:22] VITALS: BP 176/98; PULSE 88; RESP 20; O2SAT 98
[2017-03-17] MEDS ORDERED: ACETAMINOPHEN 325 MG TAB PO ONE (07:30)
== END 2017-03-17 08:00 | disposition home or self-care (01) ==
LOC: NEPE 05:42
DX: S80.02XA Contusion of left knee, initial encounter (principal); S09.90XA Unspecified injury of head, initial encounter; S00.03XA Contusion of scalp, initial encounter; R06.02 Shortness of breath; I10 Essential (primary) hypertension; M19.90 Unspecified osteoarthritis, unspecified site; F41.9 Anxiety disorder, unspecified; F32.9 Major depressive disorder, single episode, unspecified; W01.0XXA Fall on same level from slipping, tripping and stumbling without subsequent striking against object, initial encounter
CPT/HCPCS: 70450; 72125; 73564; 99285

== ENCOUNTER 2017-03-24 21:11 | Emergency (ER) | payer MEDICARE, OTHER ==
[~2017-03-24 21:11] MED LIST changes: -BUTA1CAP5 PO; -TRAM50TA PO; -TYLETAB34 PO
[2017-03-24 21:12] VITALS: BP 221/106; PULSE 84; RESP 16; TEMP 97.8; O2SAT 95
--- NOTE | 2017-03-24 22:38 | RADRPT ---
EXAM DATE/TIME: 03/24/2017 21:47 [facility] COMPARISON: No previous studies available for comparison. INDICATIONS : Chest pain, vomiting, leg weakness today. MEDICAL HISTORY : Seizures, epilepsy. SURGICAL HISTORY : None. ENCOUNTER: Initial ACUITY: 1 day PAIN SCORE: 5/10 LOCATION: Bilateral chest FINDINGS: PA and lateral views of the chest demonstrate the lungs to be symmetrically hypoinflated but clear of acute infiltrate. Heart size is prominent but well compensated. Degenerative spurring of the dorsal spine. Multiple age-indeterminate posterolateral rib fractures in the chest bilaterally. CONCLUSION: 1. Multiple age-indeterminate fractures of the posterolateral aspect of the mid and upper chest bilat erally. 2. Compensated cardiomegaly. 3. No acute infiltrate Dirk Narvaez MD on March 24, 2017 at 22:35 Board Certified Radiologist. This report was verified electronically.
[2017-03-24 22:52] VITALS: BP 210/112; PULSE 78; RESP 18; O2SAT 98
[2017-03-24 23:04] LABS: AUTOMATED NEUTROPHIL # 12.3 TH/MM3 (1.8-7.7); BASOPHIL # 0.1 TH/MM3 (0-0.2); BASOPHIL % 0.6 % (0.0-2.0); EOSINOPHIL % 0.3 % (0.0-4.0); HEMATOCRIT 39.7 % (39.0-51.0); HEMO FLAGS DIFF FINAL; LYMPH % 8.2 % (9.0-44.0); LYMPHOCYTE # 1.2 TH/MM3 (1.0-4.8); MEAN CELL VOLUME 89.9 FL (80.0-100.0); MEAN CORPUSCULAR HEMOGLOBIN 29.7 PG (27.0-34.0); MEAN CORPUSCULAR HGB CONC 33.1 % (32.0-36.0); MONO % 4.9 % (0.0-8.0); PLATELET COUNT 395 TH/MM3 (150-450); RED BLOOD COUNT 4.41 MIL/MM3 (4.50-5.90); RED CELL DISTRIBUTION WIDTH 13.9 % (11.6-17.2); WHITE BLOOD COUNT 14.2 TH/MM3 (4.0-11.0)
[2017-03-24 23:13] LABS: PROTHROMBIN TIME - PATIENT 11.3 SEC (9.8-11.6)
[2017-03-24 23:38] LABS: ANION GAP 7 MEQ/L (5-15); BICARBONATE 24.3 MEQ/L (21.0-32.0); BLOOD UREA NITROGEN 17 MG/DL (7-18); CHLORIDE 103 MEQ/L (98-107); CREATINE KINASE 169 U/L (39-308); GLOMERULAR FILTRATION RATE 58 ML/MIN (>89); SODIUM (NA) 134 MEQ/L (136-145)
[2017-03-24 23:50] LABS: CKMB 2.1 NG/ML (0.5-3.6)
--- NOTE | 2017-03-25 00:01 | PD ---
HPI Chief Complaint: General Weakness Time Seen by Provider: 23:43 Travel History International Travel<30 days: No Contact w/Intl Traveler<30days: No Traveled to known affect area: No History of Present Illness HPI 61-year-old male complains of lower extremity weakness. Patient states that he was getting out of his recliner this evening when his leg gave out and he fell. Patient states that he did not injure himself. Patient stated that he did not hit his head. Patient denies loss of consciousness. Patient denies any headache or neck pain. Patient denies any chest pain or shortness of breath. Patient denies abdominal pain. Patient denies any back pain. Patient denies any extremity pain. Patient states that he has increasing swelling of lower extremity recently. Patient denies any history of DVT or PE. Patient states that he had the fall and was seen in emergency room on March 13. Patient states that he did not injure his legs at that time. PFSH Past Medical History Hx Anticoagulant Therapy: Yes Blood Disorders: No Anxiety: Yes Depression: Yes Heart Rhythm Problems: No Cancer: No Cardiac Catheterization: No Cardiovascular Problems: Yes (HTN) High Cholesterol: No Congestive Heart Failure: No Cerebrovascular Accident: Yes Diabetes: No Diminished Hearing: No Deep Vein Thrombosis: Yes Endocrine: No Genitourinary: No Headaches: No Hypertension: Yes Immune Disorder: No Musculoskeletal: No Neurologic: Yes Psychiatric: Yes Reproductive: No Respiratory: No Migraines: Yes Seizures: Yes Tetanus Vaccination: < 5 Years Influenza Vaccination: No Past Surgical History Abdominal Surgery: Yes (LIGIA IN 79) AICD: No Arteriovenous Shunt: No Cardiac Surgery: No Cholecystectomy: Yes (1978) Coronary Artery Bypass Graft: No Ear Surgery: No Endocrine Surgery: No Eye Surgery: No Genitourinary Surgery: No Gynecologic Surgery: No Insulin Pump: No Joint Replacement: No Oral Surgery: No Pacemaker: No Thoracic Surgery: No Other Surgery: Yes Social History Alcohol Use: Yes Tobacco Use: No (QUIT 1984, DIP CURRENTLY) Substance Use: No Allergies-Medications (Allergen,Severity, Reaction): Coded Allergies: No Known Allergies (Verified Adverse Reaction, Unknown, 03/24/17) Reported Meds & Prescriptions Reported Meds & Active Scripts Active Reported Zonegran (Zonisamide) 100 Mg Cap 100 Mg PO QID Carbamazepine 200 Mg Tab 200 Mg PO TID Levetiracetam 500 Mg Tab 500 Mg PO BID Citalopram (Citalopram Hydrobromide) 40 Mg Tab 40 Mg PO DAILY Lisinopril 20 Mg Tab 20 Mg PO DAILY Review of Systems General / Constitutional: No: Fever Eyes: No: Visual changes HENT: No: Headaches Cardiovascular: No: Chest Pain or Discomfort Respiratory: No: Shortness of Breath Gastrointestinal: No: Abdominal Pain Genitourinary: No: Dysuria Musculoskeletal: No: Pain Skin: No Rash Neurologic: No: Weakness Psychiatric: No: Depression Endocrine: No: Polydipsia Hematologic/Lymphatic: No: Easy Bruising Physical Exam Narrative GENERAL: Well-nourished, well-developed patient. SKIN: Focused skin assessment warm/dry. HEAD: Normocephalic. EYES: No scleral icterus. No injection or drainage. NECK: Supple, trachea midline. No JVD or lymphadenopathy. CARDIOVASCULAR: Regular rate and rhythm without murmurs, gallops, or rubs. RESPIRATORY: Breath sounds equal bilaterally. No accessory muscle use. GASTROINTESTINAL: Abdomen soft, non-tender, nondistended. MUSCULOSKELETAL: No cyanosis. Patient has +1 pitting edema lower extremity. No redness no swelling no ecchymosis noted. Full range of motion all extremity. No tenderness on palpation lower extremity. BACK: Nontender without obvious deformity. No CVA tenderness. Neurologic exam normal. Data Data Last Documented VS Vital Signs Date Time Temp Pulse Resp B/P (MAP) Pulse Ox O2 Delivery O2 Flow Rate FiO2 03/24/17 22:52 75 18 Room Air 03/24/17 22:52 210/112 (144) 98 03/24/17 21:12 97.8 Orders Orders Electrocardiogram (03/24/17 21:23) Basic Metabolic Panel (Bmp) (03/24/17 21:23) B-Type Natriuretic Peptide (03/24/17 21:23) Ckmb (Isoenzyme) Profile (03/24/17 21:23) Complete Blood Count With Diff (03/24/17 21:23) Magnesium (Mg) (03/24/17 21:23) Prothrombin Time / Inr (Pt) (03/24/17 21:23) Act Partial Throm Time (Ptt) (03/24/17 21:23) Troponin I (03/24/17 21:23) Chest, Pa & Lat (03/24/17 21:23) CKMB (03/24/17 22:50) CKMB% (03/24/17 22:50) Labs Laboratory Tests Test 03/24/17 22:50 White Blood Count 14.2 TH/MM3 Red Blood Count 4.41 MIL/MM3 Hemoglobin 13.1 GM/DL Hematocrit 39.7 % Mean Corpuscular Volume 89.9 FL Mean Corpuscular Hemoglobin 29.7 PG Mean Corpuscular Hemoglobin Concent 33.1 % Red Cell Distribution Width 13.9 % Platelet Count 395 TH/MM3 Mean Platelet Volume 7.2 FL Neutrophils (%) (Auto) 86.0 % Lymphocytes (%) (Auto) 8.2 % Monocytes (%) (Auto) 4.9 % Eosinophils (%) (Auto) 0.3 % Basophils (%) (Auto) 0.6 % Neutrophils # (Auto) 12.3 TH/MM3 Lymphocytes # (Auto) 1.2 TH/MM3 Monocytes # (Auto) 0.7 TH/MM3 Eosinophils # (Auto) 0.0 TH/MM3 Basophils # (Auto) 0.1 TH/MM3 CBC Comment DIFF FINAL Differential Comment Prothrombin Time 11.3 SEC Prothromb Time International Ratio 1.0 RATIO Activated Partial Thromboplast Time 32.0 SEC Blood Urea Nitrogen 17 MG/DL Creatinine 1.25 MG/DL Random Glucose 128 MG/DL Calcium Level 8.3 MG/DL Magnesium Level 2.0 MG/DL Sodium Level 134 MEQ/L Potassium Level 4.0 MEQ/L Chloride Level 103 MEQ/L Carbon Dioxide Level 24.3 MEQ/L Anion Gap 7 MEQ/L Estimat Glomerular Filtration Rate 58 ML/MIN Total Creatine Kinase 169 U/L Creatine Kinase MB 2.1 NG/ML Troponin I LESS THAN 0.02 NG/ML B-Type Natriuretic Peptide 21 PG/ML MDM Medical Decision Making Medical Screen Exam Complete: Yes Emergency Medical Condition: Yes Interpretation(s) Chest x-ray shows multiple rib fracture indeterminate age. CBC WBC 14.2. 86 neutrophil. Sodium 134. Cardiac enzymes are normal. BNP 21. Differential Diagnosis Differential diagnosis including to contusion, fracture, dislocation. Narrative Course 61-year-old male was brought in after a fall at home this evening. Diagnosis Primary Impression: Fall Qualified Codes: W19.XXXA - Unspecified fall, initial encounter Patient Instructions: General Instructions Additional Instructions: Follow-up with local physician. Return as needed. Med/Other Pt SpecificInfo: No Change to Meds Disposition: 01 DISCHARGE HOME Condition: Luis Torres MD Mar 25, 2017 00:01
--- NOTE | 2017-03-25 17:52 | EKG ---
Date Performed: 03/24/2017 Time Performed: 21:38:08 PTAGE: 61 years EKG: Sinus rhythm WITH FIRST DEGREE AV BLOCK RIGHT BUNDLE BRANCH BLOCK Since previous tracing, no significant change n oted ABNORMAL ECG PREVIOUS TRACING : 11/01/2016 17.37 DOCTOR: Noa Levy Interpretating Date/Time 03/25/2017 17:51:54
== END 2017-03-25 01:01 | disposition home or self-care (01) ==
LOC: NEPC 21:11
DX: S22.43XA Multiple fractures of ribs, bilateral, initial encounter for closed fracture (principal); M62.81 Muscle weakness (generalized); I51.7 Cardiomegaly; I44.0 Atrioventricular block, first degree; I45.10 Unspecified right bundle-branch block; R94.31 Abnormal electrocardiogram [ECG] [EKG]; Z79.899 Other long term (current) drug therapy; I10 Essential (primary) hypertension; W07.XXXA Fall from chair, initial encounter
CPT/HCPCS: 71020; 80048; 82550; 82552; 83735; 83880; 84484; 85025; 85610; 85730; 93005; 99285

== ENCOUNTER 2017-05-05 03:54 | Observation (INO) | payer MEDICARE, OTHER ==
[~2017-05-05] VITALS: Ht 170.2 cm; Wt 138.4 kg
[2017-05-05] VITALS (10 sets, daily range): BP systolic 100–163; BP diastolic 60–96; PULSE 76–84; RESP 18–20; TEMP 97.9–98.1; O2SAT 94–100
[~2017-05-05 03:54] MED LIST changes: -XARE20TA PO
[2017-05-05 04:36] LABS: HEMATOCRIT 42.5 % (39.0-51.0); HEMOGLOBIN 14.5 GM/DL (13.0-17.0); MEAN CELL VOLUME 91.4 FL (80.0-100.0); MEAN CORPUSCULAR HEMOGLOBIN 31.2 PG (27.0-34.0); MEAN CORPUSCULAR HGB CONC 34.1 % (32.0-36.0); PLATELET COUNT 387 TH/MM3 (150-450); RED BLOOD COUNT 4.64 MIL/MM3 (4.50-5.90); RED CELL DISTRIBUTION WIDTH 13.3 % (11.6-17.2)
--- NOTE | 2017-05-05 04:44 | PD ---
HPI Chief Complaint: Chest Pain Time Seen by Provider: 04:14 Travel History International Travel<30 days: No Contact w/Intl Traveler<30days: No Traveled to known affect area: No History of Present Illness HPI The patient is a 61 year old male who presents to the [facility] emergency department with a history of lightheaded sensation associated with syncope 4 prior to arrival. The patient reports that his symptoms began this evening when he noticed a strange odor in his home. He reports that he just had his air conditioner and heater replaced. He reports that he was having difficulty adjusting the temperature to the appropriate level. He then noticed when he turned up the temperature on the thermostat which is when he noticed the odor in his home. When he stood up to dress it, he began to feel lightheaded and fell to the ground. He reports that at one point he bumped his left knee, left hip, and also his low back. He denies hitting his head. He is unsure whether he lost consciousness. He denies having any neck pain, numbness or tingling to his extremities, or weakness of his extremities. He reports that prior to these episodes he was experiencing chest pain each time along with upper back pain. On review of systems otherwise, the patient denies having any known recent fevers, cough, congestion, shortness of breath, abdominal pain, vomiting , diarrhea, urinary symptoms, or other neurologic symptoms. The patient according to ambulance services was noted to be syncopal with standing. The patient's blood pressure dropped down in the 70s to 80s systolic. The patient had a blood sugar 132 prior to arrival. IV access was obtained and the patient was given in total 500 mL of normal saline. The patient had improvement in his blood pressure up to 130/80. [facility] Past Medical History Narrative Medical The patient's past medical history is significant for seizure disorder, hypertension, history of DVT, depression, anxiety, sleep apnea. Hx Anticoagulant Therapy: Yes Blood Disorders: No Anxiety: Yes Depression: Yes Heart Rhythm Problems: No Cancer: No Cardiac Catheterization: No Cardiovascular Problems: Yes (HTN) High Cholesterol: No Congestive Heart Failure: No Cerebrovascular Accident: Yes Diabetes: No Diminished Hearing: No Deep Vein Thrombosis: Yes Endocrine: No Genitourinary: No Headaches: No Hypertension: Yes Immune Disorder: No Musculoskeletal: No Neurologic: Yes Psychiatric: Yes Reproductive: No Respiratory: No Migraines: Yes Seizures: Yes Past Surgical History Narrative Surgical The patient's past surgical history is significant for cholecystectomy, right ankle ORIF. Abdominal Surgery: Yes ([place] ) AICD: No Arteriovenous Shunt: No Cardiac Surgery: No Cholecystectomy: Yes (1978) Coronary Artery Bypass Graft: No Ear Surgery: No Endocrine Surgery: No Eye Surgery: No Genitourinary Surgery: No Gynecologic Surgery: No Insulin Pump: No Joint Replacement: No Oral Surgery: No Pacemaker: No Thoracic Surgery: No Other Surgery: Yes Social History Alcohol Use: Yes Tobacco Use: No (QUIT 1984, DIP CURRENTLY) Substance Use: No Allergies-Medications (Allergen,Severity, Reaction): Coded Allergies: No Known Allergies (Verified Adverse Reaction, Unknown, 05/05/17) Reported Meds & Prescriptions Reported Meds & Active Scripts Active Reported Zonisamide 100 Mg Cap 200 Mg PO DAILY Carbamazepine 200 Mg Tab 200 Mg PO TID Levetiracetam 500 Mg Tab 500 Mg PO BID Citalopram (Citalopram Hydrobromide) 40 Mg Tab 40 Mg PO DAILY Lisinopril 20 Mg Tab 20 Mg PO DAILY Review of Systems Except as stated in HPI: all other systems reviewed are Neg General / Constitutional: No: Fever Eyes: No: Visual changes HENT: Positive: Lightheadedness, No: Headaches Cardiovascular: Positive: Chest Pain or Discomfort, Syncope Respiratory: No: Shortness of Breath Gastrointestinal: No: Nausea, Vomiting, Diarrhea, Abdominal Pain Genitourinary: No: Dysuria Musculoskeletal: Positive: Myalgias, Arthralgias, Pain Skin: No Rash Neurologic: Positive: Weakness (generalized weakness), No: Focal Abnormalities , Change in Mentation, Slurred Speech, Sensory Disturbance Psychiatric: No: Depression Endocrine: No: Polydipsia Hematologic/Lymphatic: No: Easy Bruising Physical Exam Narrative General: The patient is a well-developed well-nourished male in no acute distress. Head and Neck exam: Head is normocephalic atraumatic. Eyes: EOMI, pupils are equal round and reactive to light. Nose: Midline septum with pink mucous membranes Mouth: Dentition unremarkable. Moist mucus membranes. Posterior oropharynx is not erythematous. No tonsillar hypertrophy. Uvula midline. Airway patent. Neck: No palpable lymphadenopathy. No nuchal rigidity. No thyromegaly. No spinous process tenderness to palpation. No step-off or crepitus. No erythema or ecchymosis. Cardiovascular: Regular rate and rhythm without murmurs, gallops, or rubs. No pulse deficit to the extremities on simultaneous auscultation and palpation of his radial artery. Lungs: Clear to auscultation bilaterally. No wheezes, rhonchi, or rales. Abdomen: Soft, without tenderness to palpation in all 4 quadrants of the abdomen. No guarding, rebound, or rigidity. Normal bowel sounds are audible. No tenderness on palpation of McBurney's point. Extremities: No clubbing or cyanosis. The patient has 1+ edema bilateral lower extremities. He reports that this is chronic and unchanged compared to previously. 2+ pulses in all 4 extremities. Back: No spinous process tenderness to palpation. No costovertebral angle tenderness to palpation. Neurologic Exam: Cranial nerves 2-12 were intact on exam. Strength is 5/5 in all 4 extremities. No sensory deficits noted. Skin Exam: No rash noted. Intact skin that is warm and dry. Data Data Last Documented VS Vital Signs Date Time Temp Pulse Resp B/P (MAP) Pulse Ox O2 Delivery O2 Flow Rate FiO2 05/05/17 05:30 98.0 83 18 100/65 (77) 95 Room Air 05/05/17 04:02 2.00 Orders Orders Electrocardiogram (05/05/17 04:14) Complete Blood Count With Diff (05/05/17 04:14) Comprehensive Metabolic Panel (05/05/17 04:14) Creatine Kinase (Cpk) (05/05/17 04:14) Ckmb (Isoenzyme) Profile (05/05/17 04:14) Troponin I (05/05/17 04:14) B-Type Natriuretic Peptide (05/05/17 04:14) Prothrombin Time / Inr (Pt) (05/05/17 04:14) Act Partial Throm Time (Ptt) (05/05/17 04:14) C-Reactive Protein (Crp) (05/05/17 04:14) Lipase (05/05/17 04:14) Urinalysis - C+S If Indicated (05/05/17 04:14) Magnesium (Mg) (05/05/17 04:14) Chest, Single Ap (05/05/17 04:14) Ct Brain W/O Iv Contrast(Rout) (05/05/17 04:14) Iv Access Insert/Monitor (05/05/17 04:14) Ecg Monitoring (05/05/17 04:14) Oximetry (05/05/17 04:14) Drug Screen, Random Urine (05/05/17 04:14) Alcohol (Ethanol) (05/05/17 04:14) Ct Cerv Spine W/O Contrast (05/05/17 04:14) Carbamazepine (Tegretol) (05/05/17 04:14) Ct Pulmonary Angiogram (05/05/17 04:14) Aspirin Chew (Aspirin Chew) (05/05/17 09:00) Sodium Chlorid 0.9% 500 Ml Inj (Ns 500 M (05/05/17 06:00) Blood Culture (05/05/17 05:48) Lactic Acid Sepsis Protocol (05/05/17 05:48) Piperacil-Tazo 3.375 Gm Premix (Zosyn 3. (05/05/17 06:00) Vancomycin Inj (Vancomycin Inj) (05/05/17 06:00) Cath For Specimen (05/05/17 05:48) CKMB (05/05/17 05:00) CKMB% (05/05/17 05:00) Sodium Chlor 0.9% 1000 Ml Inj (Ns 1000 M (05/05/17 06:15) Potassium Chloride (Kcl) (05/05/17 06:30) Iohexol 350 Inj (Omnipaque 350 Inj) (05/05/17 06:27) Admit Order (Ed Use Only) (05/05/17 06:36) Labs Laboratory Tests Test 05/05/17 04:29 05/05/17 05:00 05/05/17 05:59 05/05/17 06:02 White Blood Count 14.0 TH/MM3 Red Blood Count 4.64 MIL/MM3 Hemoglobin 14.5 GM/DL Hematocrit 42.5 % Mean Corpuscular Volume 91.4 FL Mean Corpuscular Hemoglobin 31.2 PG Mean Corpuscular Hemoglobin Concent 34.1 % Red Cell Distribution Width 13.3 % Platelet Count 387 TH/MM3 Mean Platelet Volume 7.0 FL CBC Comment AUTO DIFF Differential Total Cells Counted 100 Neutrophils % (Manual) 73 % Band Neutrophils % 3 % Lymphocytes % 20 % Monocytes % 3 % Basophils % 1 % Neutrophils # (Manual) 10.6 TH/MM3 Differential Comment FINAL DIFF MANUAL Toxic Vacuolation PRESENT Platelet Estimate NORMAL Platelet Morphology Comment NORMAL Red Cell Morphology Comment NORMAL Prothrombin Time 11.2 SEC Prothromb Time International Ratio 1.1 RATIO Activated Partial Thromboplast Time 27.7 SEC Blood Urea Nitrogen 21 MG/DL Creatinine 1.65 MG/DL Random Glucose 116 MG/DL Total Protein 7.1 GM/DL Albumin 3.1 GM/DL Calcium Level 7.7 MG/DL Magnesium Level 1.8 MG/DL Alkaline Phosphatase 97 U/L Aspartate Amino Transf (AST/SGOT) 19 U/L Alanine Aminotransferase (ALT/SGPT) 24 U/L Total Bilirubin 0.3 MG/DL Sodium Level 140 MEQ/L Potassium Level 3.4 MEQ/L Chloride Level 108 MEQ/L Carbon Dioxide Level 23.2 MEQ/L Anion Gap 9 MEQ/L Estimat Glomerular Filtration Rate 42 ML/MIN Total Creatine Kinase 279 U/L Creatine Kinase MB 1.0 NG/ML Troponin I 0.02 NG/ML C-Reactive Protein 2.20 MG/DL B-Type Natriuretic Peptide 14 PG/ML Lipase 239 U/L Carbamazepine (Tegretol) Level 8.4 MCG/ML Ethyl Alcohol Level 5 MG/DL Urine Color YELLOW Urine Turbidity HAZY Urine pH 5.5 Urine Specific [place] 1.021 Urine Protein 100 mg/dL Urine Glucose (UA) NEG mg/dL Urine Ketones NEG mg/dL Urine Occult Blood NEG Urine Nitrite NEG Urine Bilirubin NEG Urine Urobilinogen LESS THAN 2.0 MG/DL Urine Leukocyte Esterase TRACE Urine RBC 1 /hpf Urine WBC 7 /hpf Urine Squamous Epithelial Cells <1 /hpf Urine Renal Epithelial Cells <1 /hpf Urine Hyaline Casts 1 /lpf Urine Granular Casts 29 /lpf Urine Mucus FEW /lpf Microscopic Urinalysis Comment CULT NOT INDICATED Urine Opiates Screen NEG Urine Barbiturates Screen NEG Urine Amphetamines Screen NEG Urine Benzodiazepines Screen NEG Urine Cocaine Screen NEG Urine Cannabinoids Screen NEG Test 05/05/17 06:03 Lactic Acid Level 2.8 mmol/L [facility] Medical Decision Making Medical Screen Exam Complete: Yes Emergency Medical Condition: Yes Medical Record Reviewed: Yes Interpretation(s) Last Impressions Head CT 05/05/17 0414 Signed Impressions: Service Date/Time: Friday, May 05, 2017 06:16 - CONCLUSION: 1. No evidence of acute intracranial pathology. No masses are identified. 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 No acute cardiopulmonary disease. Lew Bridges MD Cervical Spine CT 05/05/17413 Signed Impressions: Service Date/Time: Friday, May 05, 2017 06:16 - CONCLUSION: 1. Mild degenerative changes as described above. There is no evidence of acute fracture. Lew Bridges MD CT Angiography 05/05/17413 Signed Impressions: Service Date/Time: Friday, May 05, 2017 06:22 - CONCLUSION: 1. No evidence of pulmonary embolism. Lew Bridges MD Differential Diagnosis Hypotension related to sepsis, versus vasovagal syncope, versus orthostasis, versus cardiac arrhythmia, versus acute coronary syndrome, versus pulmonary embolism Narrative Course During the course of the patients emergency department visit, the patients history, examination, and differential diagnosis were reviewed with the patient. The patient was placed on a skidder driver with oximetry and frequent blood pressure monitoring. The patient had IV access obtained and blood work sent for analysis. The patient had an ECG done on arrival. The patient's ECG reveals a sinus rhythm heart rate of 81, right bundle branch block is noted, QRS duration is 146 ms, QTC [address] segment elevation, T waves are inverted in V1. On arrival the patient's blood pressure is in the 1 teens systolic. The patient is not tachycardic. The patient is afebrile at 98.0. The patient was initially provided normal saline a 500 mL bolus. The patients laboratory studies were reviewed and remarkable for a white count of 14, hemoglobin 14.5, platelets 387 with 73 neutrophils, bands 3, toxic vacuolation present. Given these findings of the patient's episode of hypotension the patient was started on broad-spectrum antibiotics including Zosyn and vancomycin after blood cultures 2 were drawn and a lactic acid was also ordered. CMP is remarkable for potassium of 3.4 which was supplemented orally, BUN 21, creatinine 1.65 which is increased compared to previously consistent with some component of dehydration, glucose 116, calcium 7.7, lactic acid elevated at 2.8, C-reactive protein 2.20, initial set of cardiac enzymes are within normal limits, BNP 14, lipase 239, PT 11.2, PTT 27.7, urine drug screen is negative, alcohol level V, carbamazepine level VIII.4, urinalysis shows trace leukocyte Estrace 7 WBCs Radiology studies were reviewed and remarkable for a CT scan of the head and neck that showed no acute abnormality, chest x-ray shows cardiomegaly, no other acute abnormality, CTA to rule out PE is negative for pulmonary embolism. The patients results were discussed with the patient, including the plan of care. I explained that further testing and/ or monitoring is indicated based on the patients history, examination, and/ or laboratory findings. Therefore, I recommended admission for additional evaluation. The patient expressed understanding and was agreeable with this plan. The patient was admitted to the hospital in guarded condition and sent to a bed under the care of the [facility] service. Sepsis Criteria SIRS Criteria (2 or more): WBC > 01606, < 4000 or > 10% bands Physician Communication Physician Communication The patient's case including history, pertinent physical examination findings, and laboratory studies were discussed with Dr. Hussein. It was agreed that the patient would be admitted to the [facility] service. Diagnosis Primary Impression: Chest pain, rule out acute myocardial infarction Additional Impressions: Syncope Qualified Codes: R55 - Syncope and collapse Hypotension Qualified Codes: I95.9 - Hypotension, unspecified Dehydration Leukocytosis Qualified Codes: D72.829 - Elevated white blood cell count, unspecified Admitting Information Admitting Physician Requests: Admit Yary Chandra MD May 05, 2017 04:44
--- NOTE | 2017-05-05 05:17 | RADRPT ---
EXAM DATE/TIME: 05/05/2017 04:22 [facility] COMPARISON: CHEST SINGLE AP, February 21, 2017, 12:32. INDICATIONS : Chest pain for one day. MEDICAL HISTORY : Seizures, epilepsy. SURGICAL HISTORY : None. ENCOUNTER: Initial ACUITY: 1 day PAIN SCORE: 7/10 LOCATION: Bilateral chest FINDINGS: The cardiac silhouette is enlarged in transverse diameter. The lungs are free of acute parenchymal op acity. No effusions are identified. Osseous structures are intact. CONCLUSION: Cardiomegaly. No acute cardiopulmonary disease. Lew Bridges MD on May 05, 2017 at 5:15 Board Certified Radiologist. This report was verified electronically.
[2017-05-05 05:22] LABS: BANDS 3 % (0-6); BASOPHILS 1 % (0-2); LYMPHOCYTES 20 % (9-44); MONOCYTES 3 % (0-8); NEUTROPHIL # MANUAL DIFF 10.6 TH/MM3 (1.8-7.7); POLYS (SEG NEUTROPHILS) 73 % (16-70)
[2017-05-05 05:24] LABS: TOXIC VACUOLATION PRESENT (NONE SEEN)
[2017-05-05 05:30] LABS: INTERNATIONAL NORMALIZED RATIO 1.1 RATIO; PROTHROMBIN TIME - PATIENT 11.2 SEC (9.8-11.6)
[2017-05-05 05:48] LABS: ALBUMIN 3.1 GM/DL (3.4-5.0); ALT (GPT) 24 U/L (12-78); AST (GOT) 19 U/L (15-37); BICARBONATE 23.2 MEQ/L (21.0-32.0); BLOOD UREA NITROGEN 21 MG/DL (7-18); CALCIUM 7.7 MG/DL (8.5-10.1); CHLORIDE 108 MEQ/L (98-107); CREATININE 1.65 MG/DL (0.60-1.30); GLOMERULAR FILTRATION RATE 42 ML/MIN (>89); GLUCOSE,RANDOM 116 MG/DL (74-106); LIPASE 239 U/L (73-393); MAGNESIUM 1.8 MG/DL (1.5-2.5); SODIUM (NA) 140 MEQ/L (136-145)
[2017-05-05 05:50] LABS: ALKALINE PHOSPHATASE 97 U/L (45-117); CARBAMAZEPINE (TEGRETOL) 8.4 MCG/ML (4.0-12.0); TOTAL BILIRUBIN ADULT 0.3 MG/DL (0.2-1.0); TOTAL PROTEIN 7.1 GM/DL (6.4-8.2); TROPONIN I 0.02 NG/ML (0.02-0.05)
[2017-05-05] MEDS ORDERED: VANCOMYCIN INJ 1,000 MG in SODIUM CHLOR 0.9% 250 ML INJ 250 ML IV ONE (06:00)
[2017-05-05] MEDS ORDERED: SODIUM CHLORID 0.9% 500 ML INJ 500 ML IV ONE (06:00)
[2017-05-05] MEDS ORDERED: PIPERACIL-TAZO 3.375 GM PREMIX 50 ML IV ONE (06:00)
[2017-05-05] MEDS ORDERED: SODIUM CHLOR 0.9% 1000 ML INJ 1,000 ML IV ONE (06:15)
[2017-05-05 06:23] LABS: BILIRUBIN, URINE NEG (NEG); BLOOD, URINE NEG (NEG); GLUCOSE,URINE NEG (NEG); HYALINE CAST, URINE 1 /lpf (RARE); KETONE, URINE NEG (NEG); MUCUS URINE FEW /lpf (OCC); NITRITE,URINE NEG (NEG); PH, URINE 5.5 (5.0-8.5); RENAL EPITHELIAL CELLS <1 /hpf; SQUAMOUS EPITHELIAL CELL URINE <1 /hpf (0-5); URINE COLOR YELLOW (YELLW/STRAW); URINE LEUKOCYTE ESTERASE TRACE (NEG)
[2017-05-05] MEDS ORDERED: IOHEXOL 350 MG/ML 10 ML VIAL (for RAD DIAG) IVCONTRAST ONE (06:27)
[2017-05-05] MEDS ORDERED: POTASSIUM CHLORIDE 20 MEQ CONTROLLED RELEASE TAB PO ONE (06:30)
--- NOTE | 2017-05-05 06:30 | RADRPT ---
EXAM DATE/TIME: 05/05/2017 06:16 [facility] COMPARISON: CT BRAIN W/O CONTRAST, March 17, 2017, 6:19. INDICATIONS : Syncope RADIATION DOSE: 46.66 CTDIvol (mGy) MEDICAL HISTORY : Seizures. Deep venous thrombosis. Hypertension. SURGICAL HISTORY : Cholecystectomy. ENCOUNTER: Initial ACUITY: 1 day PAIN SCALE: 0/10 LOCATION: cranial TECHNIQUE: Multiple contiguous axial images were obtained of the head. Using automated exposure control and adj ustment of the mA and/or kV according to patient size, radiation dose was kept as low as reasonably a chievable to obtain optimal diagnostic quality images. DICOM format image data is available electro nically for review and comparison. FINDINGS: Noncontrast axial head CT demonstrates the ventricles to be normal in size and configuration with a n ormal sulcal pattern. No acute intracranial hemorrhage, acute cortical infarction, mass or midline sh ift is seen. Old left parietal infarct is present Posterior fossa structures are unremarkable. Bone windows are unremarkable. CONCLUSION: 1. No evidence of acute intracranial pathology. No masses are identified. Small old left parietal inf arct Lew Bridges MD on May 05, 2017 at 6:28 Board Certified Radiologist. This report was verified electronically.
--- NOTE | 2017-05-05 06:33 | RADRPT ---
EXAM DATE/TIME: 05/05/2017 06:16 [facility] COMPARISON: CT CERVICAL SPINE W/O CONTRAST, March 17, 2017, 6:19. INDICATIONS : Syncope RADIATION DOSE: 26.85 CTDIvol (mGy) MEDICAL HISTORY : Seizures. Hypertension. Deep venous thrombosis. SURGICAL HISTORY : Cholecystectomy. ENCOUNTER: Initial ACUITY: 1 day PAIN SCALE: 0/10 LOCATION: neck TECHNIQUE: Volumetric scanning of the cervical spine was performed. Multiplanar reconstructions in the sagittal, coronal and oblique axial planes were performed. Using automated exposure control and adjustment o f the mA and/or kV according to patient size, radiation dose was kept as low as reasonably achievable to obtain optimal diagnostic quality images. DICOM format image data is available electronically f or review and comparison. FINDINGS: Sagittal images demonstrate normal vertebral body alignment and curvature. The odontoid is intact. Th e occipital condyles and lateral masses of C1 are intact. Axial images were performed from C2-C3 to C7-T1. There is multilevel disc space narrowing and marginal osteophyte formation maximal at C5-C6. There is osteorathritis involving the atlantoaxial joint with sclerosis and osteophyte formation. C2-C3: No significant abnormalities identified. C3-C4: There is no evidence of disc protrusion or spinal canal stenosis. There is mild facet arthritis bilat erally. C4-C5: There is mild facet arthritis bilaterally. There is no significant spinal canal stenosis. C5-C6: There is mild diffuse annular bulge of the disc. The neural foramina are clear bilaterally. There is no significant spinal canal stenosis. C6-C7: No significant abnormalities identified. C7-T1: No significant abnormalities identified. CONCLUSION: 1. Mild degenerative changes as described above. There is no evidence of acute fracture. Lew Bridges MD on May 05, 2017 at 6:29 Board Certified Radiologist. This report was verified electronically.
--- NOTE | 2017-05-05 06:36 | RADRPT ---
EXAM DATE/TIME: 05/05/2017 06:22 [facility] COMPARISON: No previous studies available for comparison. INDICATIONS : Chest pain; rule out pulmonary embolus. IV CONTRAST: 80 cc Omnipaque 350 (iohexol) IV RADIATION DOSE: 33.32 CTDIvol (mGy) ; Patient body habitus MEDICAL HISTORY : Seizures. Hypertension. Deep venous thrombosis. SURGICAL HISTORY : Cholecystectomy. ENCOUNTER: Initial ACUITY: 1 day PAIN SCALE: 4/10 LOCATION: chest TECHNIQUE: Volumetric scanning of the chest was performed using a pulmonary embolism protocol MIP images were re constructed. Using automated exposure control and adjustment of the mA and/or kV according to patien t size, radiation dose was kept as low as reasonably achievable to obtain optimal diagnostic quality images. DICOM format image data is available electronically for review and comparison. Follow-up recommendations for detected pulmonary nodules are based at a minimum on nodule size and pa tient risk factors according to Fleischner Society Guidelines. FINDINGS: Examination of the pulmonary vasculature demonstrates good filling of the main, lobar and segmental b ranches. There are no filling defects to suggest pulmonary embolism. Multiplanar reconstructions are also unremarkable. Examination of the lung sin demonstrates no evidence of pulmonary nodule. No pleural fluid is iden tified. Examination of the mediastinum demonstrates no abnormally enlarged lymph nodes by CT criteria . No axillary or hilar abnormalities are identified. Coronary artery calcifications are present. Ther e is decreased density of the liver with respect to the spleen compatible with fatty infiltration. Th e spleen is unremarkable. The adrenal glands are unremarkable. CONCLUSION: 1. No evidence of pulmonary embolism. Lew Bridges MD on May 05, 2017 at 6:33 Board Certified Radiologist. This report was verified electronically.
[2017-05-05 06:42] LABS: LACTIC ACID SEPSIS PROTOCOL 2.8 mmol/L (0.4-2.0)
[2017-05-05] MEDS ORDERED: MAGNESIUM HYDROXIDE SUSP 30 ML CUP PO PRN (06:45)
[2017-05-05] MEDS ORDERED: SODIUM CHLORIDE 0.9% FLUSH 10 ML FLUSH IV FLUSH PRN (06:45)
[2017-05-05] MEDS ORDERED: ONDANSETRON HCL 4 MG/2 ML VIAL IVP PRN (06:45)
[2017-05-05] MEDS ORDERED: ACETAMINOPHEN 325 MG TAB PO PRN (06:45)
[2017-05-05] MEDS ORDERED: ACETAMINOPHEN/HYDROcodone 325 MG/10 MG TAB PO PRN (06:45)
[2017-05-05] MEDS ORDERED: SENNOSIDES 8.6 MG TAB PO PRN (06:45)
[2017-05-05] MEDS ORDERED: LACTULOSE SYRUP 20 GM/30 ML CUP PO PRN (06:45)
[2017-05-05] MEDS ORDERED: BISACODYL 10 MG SUPP RECTAL PRN (06:45)
[2017-05-05] MEDS ORDERED: ACETAMINOPHEN/HYDROcodone 325 MG/5 MG TAB PO PRN (06:45)
[2017-05-05] MEDS: SODIUM CHLOR 0.9% 1000 ML INJ 1,000 ML IV SCH ×2 (06:54→16:21)
[2017-05-05] MEDS ORDERED: ZONI100C2 PO (06:54)
--- NOTE | 2017-05-05 07:52 | HHI.HP ---
[facility]ician No Primary Care Physician Admission Diagnosis syncope, leukocytosis, pyuria Diagnoses: Chief Complaint: Lightheaded Travel History International Travel<30 Days: No Contact w/Intl Traveler <30 Da: No Traveled to Known Affected Are: No History of Present Illness Mr. Birmingham is a pleasant 61-year-old male with a history of seizure activity, anxiety/depression, hypertension who presented to the emergency department on 05/05/2017 due to lightheadedness and near syncope 4 prior to arrival. Patient lives by himself in an apartment. He is before meals/heating unit was recently replaced. Last night around midnight he went to sleep and put his CPAP mask on and smelled something unusual. He subsequently stopped his CPAP machine and went worse the door, felt lightheadedness and dizzy and he fell on the floor. He feels that he was on the floor for 10-15 minutes and eventually got up. An hour later he again fell after feeling dizziness and lightheadedness. The symptoms are similar to his seizure activities in the past. Patient reports some nonspecific chest discomfort. Denies any cough, fever, diaphoresis. No changes in bladder habits. However he reports diarrhea for two nights recently. 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 He also has a friend in the same apartment complex. He reports eating and drinking well. However up on further questioning he admits to drinking mostly juice and tea. He does not drink much water. He sees Dr. Ruel Cavazos with regards to seizure activity. Review of Systems Except as stated in HPI: all other systems reviewed are Neg Past Family Social History Past Medical History Hypertension, CVA, deep vein thromboses, anxiety and depression, seizure activities, migraine Past Surgical History Cholecystectomy 1978, right ankle ORIF Reported Medications Zonisamide 100 Mg Cap 200 Mg PO DAILY Carbamazepine 200 Mg Tab 200 Mg PO TID Levetiracetam 500 Mg Tab 500 Mg PO BID Citalopram (Citalopram Hydrobromide) 40 Mg Tab 40 Mg PO DAILY Lisinopril 20 Mg Tab 20 Mg PO DAILY Allergies: Coded Allergies: No Known Allergies (Verified Adverse Reaction, Unknown, 05/05/17) Family History No family history of Alzheimer's or Parkinson's. Dad had heart disease. Social History Patient quit smoking in 1984, currently uses DIP. He drinks alcohol. Physical Exam Vital Signs Vital Signs Date Time Temp Pulse Resp B/P (MAP) Pulse Ox O2 Delivery O2 Flow Rate FiO2 05/05/17 06:45 80 18 111/60 (77) 99 Room Air 05/05/17 05:30 98.0 83 18 100/65 (77) 95 Room Air 05/05/17 05:05 98 Room Air 05/05/17 04:02 80 18 100 Nasal Cannula 2.00 05/05/17 03:55 84 18 116/65 (82) 94 Physical Exam GENERAL: This is a well-nourished, well-developed patient, in no apparent distress. Morbidly obese. SKIN: No rashes, ecchymoses or lesions. Warm and dry. HEAD: Atraumatic. Normocephalic. No temporal or scalp tenderness. EYES: Pupils equal round and reactive. No injection or drainage. ENT: Nose without bleeding, purulent drainage or septal hematoma. Airway patent. NECK: Trachea midline. No lymphadenopathy. Supple, nontender, no meningeal signs. CARDIOVASCULAR: Regular rate and rhythm without murmurs, gallops, or rubs. No JVD. RESPIRATORY: Clear to auscultation. Breath sounds equal bilaterally. No wheezes , rales, or rhonchi. GASTROINTESTINAL: Abdomen soft, non-tender, nondistended. No guarding. MUSCULOSKELETAL: Extremities without clubbing, cyanosis, or edema. NEUROLOGICAL: Awake and alert. Cranial nerves II through XII intact. No focal neurological deficits. Normal speech. Laboratory Laboratory Tests Test 05/05/17 04:29 05/05/17 05:00 05/05/17 05:59 05/05/17 06:02 White Blood Count 14.0 Red Blood Count 4.64 Hemoglobin 14.5 Hematocrit 42.5 Mean Corpuscular Volume 91.4 Mean Corpuscular Hemoglobin 31.2 Mean Corpuscular Hemoglobin Concent 34.1 Red Cell Distribution Width 13.3 Platelet Count 387 Mean Platelet Volume 7.0 CBC Comment AUTO DIFF Differential Total Cells Counted 100 Neutrophils % (Manual) 73 Band Neutrophils % 3 Lymphocytes % 20 Monocytes % 3 Basophils % 1 Neutrophils # (Manual) 10.6 Differential Comment FINAL DIFF MANUAL Toxic Vacuolation PRESENT Platelet Estimate NORMAL Platelet Morphology Comment NORMAL Red Cell Morphology Comment NORMAL Prothrombin Time 11.2 Prothromb Time International Ratio 1.1 Activated Partial Thromboplast Time 27.7 Blood Urea Nitrogen 21 Creatinine 1.65 Random Glucose 116 Total Protein 7.1 Albumin 3.1 Calcium Level 7.7 Magnesium Level 1.8 Alkaline Phosphatase 97 Aspartate Amino Transf (AST/SGOT) 19 Alanine Aminotransferase (ALT/SGPT) 24 Total Bilirubin 0.3 Sodium Level 140 Potassium Level 3.4 Chloride Level 108 Carbon Dioxide Level 23.2 Anion Gap 9 Estimat Glomerular Filtration Rate 42 Total Creatine Kinase 279 Creatine Kinase MB 1.0 Troponin I 0.02 C-Reactive Protein 2.20 B-Type Natriuretic Peptide 14 Lipase 239 Carbamazepine (Tegretol) Level 8.4 Ethyl Alcohol Level 5 Urine Color YELLOW Urine Turbidity HAZY Urine pH 5.5 Urine Specific [place] 1.021 Urine Protein 100 Urine Glucose (UA) NEG Urine Ketones NEG Urine Occult Blood NEG Urine Nitrite NEG Urine Bilirubin NEG Urine Urobilinogen LESS THAN 2.0 Urine Leukocyte Esterase TRACE Urine RBC 1 Urine WBC 7 Urine Squamous Epithelial Cells <1 Urine Renal Epithelial Cells <1 Urine Hyaline Casts 1 Urine Granular Casts 29 Urine Mucus FEW Microscopic Urinalysis Comment CULT NOT INDICATED Urine Opiates Screen NEG Urine Barbiturates Screen NEG Urine Amphetamines Screen NEG Urine Benzodiazepines Screen NEG Urine Cocaine Screen NEG Urine Cannabinoids Screen NEG Test 05/05/17 06:03 Lactic Acid Level 2.8 Date/Time Source Procedure Growth Status 05/05/17 06:02 Blood Peripheral Aerobic Blood Culture Pending Received 05/05/17 06:02 Blood Peripheral Anaerobic Blood Culture Pending Received Result Diagram: 05/05/17 0429 05/05/17 0500 Imaging Last Impressions Head CT 05/05/17413 Signed Impressions: Service Date/Time: Friday, May 05, 2017 06:16 - CONCLUSION: 1. No evidence of acute intracranial pathology. No masses are identified. 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 No acute cardiopulmonary disease. Lew Bridges MD Cervical Spine CT 05/05/17413 Signed Impressions: Service Date/Time: Friday, May 05, 2017 06:16 - CONCLUSION: 1. Mild degenerative changes as described above. There is no evidence of acute fracture. Lew Bridges MD CT Angiography 05/05/17413 Signed Impressions: Service Date/Time: Friday, May 05, 2017 06:22 - CONCLUSION: 1. No evidence of pulmonary embolism. MD Cricket Abbotti VTE Risk Assessment Caprini VTE Risk Assessment: Mod/High Risk (score >= 2) Caprini Risk Assessment Model Point Value = 1 Point Value = 2 Point Value = 3 Point Value = 5 Age 41-60 Minor surgery BMI > 25 kg/m2 Swollen legs Varicose veins or History of unexplained or recurrent spontaneous Oral contraceptives or hormone replacement Sepsis (< 1 month) Serious lung disease, including pneumonia (< 1 month) Abnormal pulmonary function Acute myocardial infarction Congestive heart failure (< 1 month) History of inflammatory bowel disease Medical patient at bed rest Age 61-74 Arthroscopic surgery Major open surgery (> 45 min) Laparoscopic surgery (> 45 min) Malignancy Confined to bed (> 72 hours) Immobilizing plaster cast Central venous access Age >= 75 History of VTE Family history of VTE Factor V Leiden Prothrombin [id number] Lupus anticoagulant Anticardiolipin antibodies Elevated serum homocysteine Heparin-induced thrombocytopenia Other congenital or acquired thrombophilia Stroke (< 1 month) Elective arthroplasty Hip, pelvis, or leg fracture Acute spinal cord injury (< 1 month) Prophylaxis Regimen Total Risk Factor Score Risk Level Prophylaxis Regimen 0-1 Low Early ambulation 2 Moderate Order ONE of the following: *Sequential Compression Device (SCD) *Heparin 5000 units SQ BID 3-4 Higher Order ONE of the following medications: *Heparin 5000 units SQ TID *Enoxaparin/Lovenox 40 mg SQ daily (WT < 150 kg, CrCl > 30 mL/min) *Enoxaparin/Lovenox 30 mg SQ daily (WT < 150 kg, CrCl > 10-29 mL/min) *Enoxaparin/Lovenox 30 mg SQ BID (WT < 150 kg, CrCl > 30 mL/min) AND/OR *Sequential Compression Device (SCD) 5 or more Highest Order ONE of the following medications: *Heparin 5000 units SQ TID (Preferred with Epidurals) *Enoxaparin/Lovenox 40 mg SQ daily (WT < 150 kg, CrCl > 30 mL/min) *Enoxaparin/Lovenox 30 mg SQ daily (WT < 150 kg, CrCl > 10-29 mL/min) *Enoxaparin/Lovenox 30 mg SQ BID (WT < 150 kg, CrCl > 30 mL/min) AND *Sequential Compression Device (SCD) Assessment and Plan Problem List: (1) Seizure disorder ICD Code: G40.909 - Epilepsy, unspecified, not intractable, without status epilepticus (2) Syncope ICD Code: R55 - Syncope and collapse Status: Acute (3) Acute kidney injury ICD Code: N17.9 - Acute kidney failure, unspecified (4) CKD (chronic kidney disease) stage 2, GFR 60-89 ml/min ICD Code: N18.2 - Chronic kidney disease, stage 2 (mild) (5) Morbid obesity ICD Code: E66.01 - Morbid (severe) obesity due to excess calories Assessment and Plan Mr. Birmingham is a pleasant 61-year-old male with a history of seizure disorder, hypertension, anxiety/depression who presents to the emergency department due to lightheadedness, dizziness and near syncope. Patient feels that his symptoms were similar to his seizure activities. He sees Dr. Ruel Cavazos for seizure disorder. - Probable orthostatic hypotension - Near-syncope - Patient's symptoms likely due to orthostatic hypotension. - He recently had diarrhea and also likely due to dehydration from poor oral intake. - We'll keep patient on IV normal saline 100 cc per hour. - We'll check orthostatic blood pressure - EKG is unremarkable, EKG reviewed by me shows right bundle branch block but normal sinus rhythm. - Chest x-ray reviewed by me shows cardiomegaly. BNP 14. - Seizure disorder - Patient's symptoms along with unusual smell could be due to seizure activity. - We'll obtain EEG and a neurology consult. - Further imaging studies including MRI could be considered by neurology. - We'll continue carbamazepine 200 mg 3 times a day, Keppra 500 mg twice a day, Zonisamide 200 mg daily - Acute kidney injury - CKD stage II - Creatinine 1.65 likely due to volume depletion. - We'll repeat labs in the morning. - Anxiety/depression - continue citalopram 40 mg daily - Hypertension - currently normotensive. Patient is on lisinopril at home but not sure if he takes it or not. We'll continue to hold lisinopril due to MIKAL. Full code. Heparin SQ. Problem Qualifiers (1) Syncope: Qualified Codes: R55 - Syncope and collapse Syed Page DO May 05, 2017 07:52
[2017-05-05] MEDS: DOCUSATE SODIUM 50 MG/SENNA 8.6 MG TAB PO SCH ×2 (09:00→21:00)
[2017-05-05] MEDS: SODIUM CHLORIDE 0.9% FLUSH 10 ML FLUSH IV FLUSH SCH ×2 (09:00→21:00)
[2017-05-05] MEDS: ASPIRIN 81 MG CHEW TAB CHEW SCH (09:06)
[2017-05-05] MEDS: carBAMazepine 200 MG TAB PO SCH ×2 (12:15→16:54)
--- NOTE | 2017-05-05 18:52 | EKG ---
Date Performed: 05/05/2017 Time Performed: 03:58:14 PTAGE: 61 years EKG: Sinus rhythm RIGHT BUNDLE BRANCH BLOCK ABNORMAL ECG PREVIOUS TRACING : 03/24/2017 21.38 Compared to prior tracing no significant change DOCTOR: Noa Levy Interpretating Date/Time 05/05/2017 18:50:35
--- NOTE | 2017-05-05 19:13 | ECHRPT ---
Indication: CARDIOMYOPATHY CONCLUSIONS Very technically difficult study. Normal left ventricular size. Moderate concentric left ventricular hypertrophy. The left ventricular systolic function is low normal with an estimated ejection fraction in the rang e of 50- 55%. The left ventricle is not well visualized. The left atrial size is mildly dilated. The interatrial septum not well visualized. There is trace tricuspid valve regurgitation. The estimated pulmonary arterial pressure is 25.5 mmHg. BP: 111 / 60 HR: 77 Rhythm: Sinus MEASUREMENTS (Male / Female) Normal Values Technical Quality:Very technically difficult study 2D ECHO LV Diastolic Diameter PLAX 4.8 cm 4.2 - 5.9 / 3.9 - 5.3 cm LV Systolic Diameter PLAX 3.9 cm IVS Diastolic Thickness 1.5 cm 0.6 - 1.0 / 0.6 - 0.9 cm LVPW Diastolic Thickness 1.5 cm 0.6 - 1.0 / 0.6 - 0.9 cm LV Relative Wall Thickness 0.6 RV Internal Dim ED PLAX 1.7 cm LVOT Diameter 2.6 cm Aortic Root Diameter 3.4 cm LA Systolic Diameter LX 4.2 cm 3.0 - 4.0 / 2.7 - 3.8 cm M-MODE AV Cusp Separation MM 2.1 cm DOPPLER LVOT Peak Velocity 114.0 cm/s LVOT Peak Gradient 5.2 mmHg LVOT Velocity Time Integral 21.9 cm LVOT Cardiac Index 3447.2 cm/minm Mitral E Point Velocity 67.6 cm/s Mitral A Point Velocity 80.9 cm/s Mitral E to A Ratio 0.8 LV E' Lateral Velocity 10.9 cm/s Mitral E to LV E' Lateral Ratio 6.2 LV E' Septal Velocity 5.8 cm/s Mitral E to LV E' Septal Ratio 11.8 TR Peak Velocity 197.0 cm/s TR Peak Gradient 15.5 mmHg Right Atrial Pressure 10.0 mmHg Pulmonary Artery Systolic Pressu 25.5 mmHg Right Ventricular Systolic Press 25.5 mmHg PV Peak Velocity 68.4 cm/s PV Peak Gradient 1.9 mmHg FINDINGS LEFT VENTRICLE Normal left ventricular size. Moderate concentric left ventricular hypertrophy. The left ventricular systolic function is low normal with an estimated ejection fraction in the rang e of 50- 55%. The left ventricle is not well visualized. RIGHT VENTRICLE Normal right ventricular size and systolic function. LEFT ATRIUM The left atrial size is mildly dilated. RIGHT ATRIUM The right atrial size is normal. ATRIAL SEPTUM The interatrial septum not well visualized. AORTA The aortic root and proximal ascending aorta are normal in size on limited imaging. MITRAL VALVE Structurally normal mitral valve. No mitral valve stenosis or regurgitation. AORTIC VALVE Trileaflet aortic valve. No aortic valve stenosis or regurgitation. TRICUSPID VALVE There is trace tricuspid valve regurgitation. The estimated pulmonary arterial pressure is 25.5 mmHg. PULMONARY VALVE No pulmonary valve regurgitation or stenosis. VESSELS The inferior vena cava is normal in size. PERICARDIUM No pericardial effusion. Ihsan Glass MD, FACC (Electronically Signed) Final Date:05 May 2017 19:12
[2017-05-05] MEDS: HEPARIN SODIUM - SQ 10,000 UNITS/ML VIAL SQ SCH (21:02)
[2017-05-05] MEDS: levETIRAcetam 500 MG TAB PO SCH (21:03)
--- NOTE | 2017-05-05 22:34 | MB ---
cc: MAILE DAVILA MD DATE OF CONSULTATION 05/05/2017 REASON FOR CONSULTATION Seizure. HISTORY OF PRESENT ILLNESS Mr. Birmingham is a 61-year-old male who has past medical history of seizure activity, anxiety, depression, hypertension who presented to the [facility] Emergency Department on 05/15/2017 due to several episodes of lightheadedness and near syncope. The patient lives by himself in an apartment. The caregiver comes and checks on him. The patient follows up with Dr. Cavazos since 2007 and he states that he was diagnosed with epilepsy since and denies any family member with a seizure disorder. He is currently on Zonegran 200 mg daily, Tegretol 200 milligrams three times a day and Keppra 500 mg twice daily. He also has a diagnosis of obstructive sleep apnea and uses C-PAP. He denies any noncompliance with medication or missing a dose. The patient states that the night prior to hospital presentation he went to sleep put on his C-PAP, smelled something unusual like burning rubber. He stopped his C-PAP and went to the door, felt lightheaded and dizzy and fell on the floor. This lasted 10-15 minutes and then he got up feeling dizzy and lightheaded. Denies any convulsive activity or postictal confusional states. REVIEW OF SYSTEMS A 12-point review of systems is negative except for what is stated in the HPI. PAST MEDICAL HISTORY 1. Hypertension. 2. Deep venous thrombosis. 3. Anxiety. 4. Depression. 5. Seizure disorder. 6. Migraine. PAST SURGICAL HISTORY 1. Cholecystectomy. 2. Right ankle ORIF. MEDICATIONS 1. Zonisamide 200 mg daily. 2. Carbamazepine 200 mg three times daily. 3. Keppra 500 mg twice daily. 4. Citalopram. 5. Lisinopril. ALLERGIES NO KNOWN ALLERGIES. FAMILY HISTORY Noncontributory. SOCIAL HISTORY Quit smoking in 1984. He drinks alcohol. Denies illicit drug abuse. PHYSICAL EXAMINATION GENERAL: Morbidly obese in no apparent distress. HEENT: Atraumatic, normocephalic. Intact hearing. Intact vision. NECK: Supple. No carotid bruit. No signs of meningeal irritation. CARDIOVASCULAR: Regular rate and rhythm. RESPIRATORY: Clear to auscultation. No wheezes. GASTROINTESTINAL: Soft, nontender. MUSCULOSKELETAL: No clubbing, cyanosis or edema. NEUROLOGIC: Awake, alert, oriented to time, person and place. Cranial nerves II-XII are grossly intact. No facial asymmetry. No nystagmus. No diplopia. Motor system examination 5/5. No abnormal movement. Normal tone 5/5 bilateral symmetrical upper and lower extremities. Sensation is intact to light, temperature and touch. Reflexes 1+ bilateral symmetrical. Plantars are bilaterally and downgoing. [id number] is intact. PSYCHIATRIC: Cooperative. Normal mood and behavior. LABORATORY DATA Diagnostic tests, white blood cell 14, hemoglobin 14.5, platelets 387. Sodium 140, potassium 3.4, anion gap 9, BUN 21, creatinine 1.65, calcium 7.7. Lactic acid elevated at 2.8. C-reactive protein 2.2. INR 1.1. IMAGING - Head CT scan without contrast revealed no evidence of acute intracranial pathology. No masses identified. There is evidence of small old left parietal infarct. - Cervical spine CT scan revealed mild degenerative changes. No evidence of acute fracture. DIAGNOSTIC IMPRESSION 1. History of seizure disorder. 2. Syncope. 3. MIKAL. 4. CKD. 5. Morbid obesity. 6. Obstructive sleep apnea. PLAN 1. Neurological checks q.4h. 2. Examination is nonfocal and there is no acute intracranial pathology on neurologic investigation. 3. EEG. 4. Continue home antiseizure medication at current doses. 5. The patient will follow up with Dr. Cavazos as an outpatient. 6. Seizure precautions. Thank you for the opportunity to participate in the care of your patient. MD SYED Malin/ABHISHEK /8:53 PM /10:01 PM KINZA
--- NOTE | 2017-05-05 23:22 | MG ---
cc: MAILE WELLS MD Sex: M DATE OF 1955 REFERRING PHYSICIAN: Dr. Page. HISTORY: History of seizure. Migraine headache. Stroke. Hypercholesterolemia. Dizziness. Hypertension. Anxiety. Depression. Alcohol. Anticoagulation therapy. Arthritis. Syncope. MEDICATIONS 1. Celexa. 2. Heparin. 3. Keppra 4. Aspirin 5. Zonegran. 6. Tegretol 7. Piperacillin 8. Vancomycin DESCRIPTION The background activity is 8-9 Hz alpha located posteriorly superimposed by excess beta activity. Photic stimulation did not elicit driving response. Hyperventilation was not done. There were no electrographic seizures or epileptiform discharges noted during the recording. INTERPRETATION This is a normal awake EEG. Beta activity is a nonspecific finding that may indicate medication side effects, adverse effects like benzos and barbiturates. There were no electrographic seizures or epileptiform discharges during the recording. Clinical correlation is recommended. Maile Wells MD [facility] /10:12 PM /11:02 PM KINZA
[2017-05-06 00:32] VITALS: BP 125/78; PULSE 85; RESP 18; TEMP 98.4; O2SAT 95
[2017-05-06] MEDS: SODIUM CHLOR 0.9% 1000 ML INJ 1,000 ML IV SCH ×2 (02:40→03:34)
[2017-05-06 05:00] VITALS: BP 159/75; PULSE 89; RESP 18; TEMP 98; O2SAT 96
[2017-05-06] MEDS ORDERED: cefTRIAXone INJ 1,000 MG in SODIUM CHLORIDE 0.9% INJ 100 ML IV SCH (06:00)
[2017-05-06 06:05] LABS: AUTOMATED NEUTROPHIL # 4.6 TH/MM3 (1.8-7.7); BASOPHIL % 0.6 % (0.0-2.0); EOSINOPHIL # 0.3 TH/MM3 (0-0.4); EOSINOPHIL % 3.7 % (0.0-4.0); HEMATOCRIT 36.5 % (39.0-51.0); HEMOGLOBIN 12.3 GM/DL (13.0-17.0); LYMPH % 22.4 % (9.0-44.0); LYMPHOCYTE # 1.6 TH/MM3 (1.0-4.8); MEAN CELL VOLUME 90.5 FL (80.0-100.0); MEAN CORPUSCULAR HEMOGLOBIN 30.5 PG (27.0-34.0); MEAN CORPUSCULAR HGB CONC 33.7 % (32.0-36.0); MEAN PLATELET VOLUME 6.4 FL (7.0-11.0); MONO % 9.2 % (0.0-8.0); MONOCYTE # 0.7 TH/MM3 (0-0.9); NEUT % 64.1 % (16.0-70.0); PLATELET COUNT 358 TH/MM3 (150-450); RED BLOOD COUNT 4.04 MIL/MM3 (4.50-5.90); RED CELL DISTRIBUTION WIDTH 13.3 % (11.6-17.2); WHITE BLOOD COUNT 7.1 TH/MM3 (4.0-11.0)
[2017-05-06 06:52] LABS: ALKALINE PHOSPHATASE 94 U/L (45-117); ALT (GPT) 29 U/L (12-78); AST (GOT) 34 U/L (15-37); BICARBONATE 25.2 MEQ/L (21.0-32.0); BLOOD UREA NITROGEN 17 MG/DL (7-18); CALCIUM 8.3 MG/DL (8.5-10.1); CHLORIDE 108 MEQ/L (98-107); CREATININE 1.13 MG/DL (0.60-1.30); GLOMERULAR FILTRATION RATE 66 ML/MIN (>89); GLUCOSE,RANDOM 97 MG/DL (74-106); SODIUM (NA) 141 MEQ/L (136-145); TOTAL BILIRUBIN ADULT 0.2 MG/DL (0.2-1.0); TOTAL PROTEIN 7.1 GM/DL (6.4-8.2)
[2017-05-06 08:00] VITALS: BP 179/109; PULSE 78; RESP 18; TEMP 97.4; O2SAT 96
[2017-05-06] MEDS: ASPIRIN 81 MG CHEW TAB CHEW SCH (08:13)
[2017-05-06] MEDS: HEPARIN SODIUM - SQ 10,000 UNITS/ML VIAL SQ SCH (08:13)
[2017-05-06] MEDS: carBAMazepine 200 MG TAB PO SCH ×2 (08:13→12:23)
[2017-05-06] MEDS: levETIRAcetam 500 MG TAB PO SCH (08:13)
[2017-05-06] MEDS: DOCUSATE SODIUM 50 MG/SENNA 8.6 MG TAB PO SCH (08:13)
[2017-05-06] MEDS: SODIUM CHLORIDE 0.9% FLUSH 10 ML FLUSH IV FLUSH SCH (08:13)
[2017-05-06] MEDS ORDERED: ZONISAMIDE 100 MG CAP PO SCH (09:00)
[2017-05-06] MEDS ORDERED: CITALOPRAM HYDROBROMIDE 40 MG TAB PO SCH (09:00)
[2017-05-06 09:27] VITALS: PULSE 79
[2017-05-06 09:35] VITALS: BP 139/84
--- NOTE | 2017-05-06 11:46 | HHI.PR ---
Subjective Remarks Follow-up syncope. Patient no recurrence of syncope he feels okay back to his usual self. He has been ambulatory. Not orthostatic. Also no diarrhea. Discussed with RN Objective Vitals Vital Signs Date Time Temp Pulse Resp B/P (MAP) Pulse Ox O2 Delivery O2 Flow Rate FiO2 05/06/17 09:35 139/84 (102) 05/06/17 09:27 79 05/06/17 08:00 97.4 78 18 179/109 (132) 96 05/06/17 05:00 98.0 89 18 159/75 (103) 96 05/06/17 00:32 98.4 85 18 125/78 (94) 95 05/05/17 20:40 98.1 84 18 163/88 (113) 97 05/05/17 20:00 83 05/05/17 16:00 97.9 82 20 135/65 (88) 100 05/05/17 12:00 98.1 77 19 117/72 (87) 98 I/O 05/05/17 05/05/17 05/05/17 05/06/17 05/06/17 05/06/17 07:00 15:00 23:00 07:00 15:00 23:00 Intake Total 50 ml 1750 ml 480 ml 1240 ml Balance 50 ml 1750 ml 480 ml 1240 ml Intake Oral 480 ml 240 ml IV Total 50 ml 1750 ml 1000 ml # Voids 3 4 # Bowel Movements 0 Result Diagram: 05/06/17 0553 05/06/17 0553 Imaging Last Impressions Head CT 05/05/17413 Signed Impressions: Service Date/Time: Friday, May 05, 2017 06:16 - CONCLUSION: 1. No evidence of acute intracranial pathology. No masses are identified. 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 No acute cardiopulmonary disease. Lew Bridges MD Cervical Spine CT 05/05/17413 Signed Impressions: Service Date/Time: Friday, May 05, 2017 06:16 - CONCLUSION: 1. Mild degenerative changes as described above. There is no evidence of acute fracture. Lew Bridges MD CT Angiography 05/05/174 Signed Impressions: Service Date/Time: Friday, May 05, 2017 06:22 - CONCLUSION: 1. No evidence of pulmonary embolism. Lew Bridges MD Objective Remarks GENERAL: This is a well-nourished, well-developed patient, in no apparent distress. Morbidly obese. SKIN: No rashes, ecchymoses or lesions. Warm and dry. CARDIOVASCULAR: Regular rate and rhythm without murmurs, gallops, or rubs. No JVD. RESPIRATORY: Clear to auscultation. Breath sounds equal bilaterally. No wheezes , rales, or rhonchi. GASTROINTESTINAL: Abdomen soft, non-tender, nondistended. No guarding. MUSCULOSKELETAL: Extremities without clubbing, cyanosis, or edema. NEUROLOGICAL: Awake and alert. Cranial nerves II through XII intact. No focal neurological deficits. Normal speech. Procedures none A/P Problem List: (1) Seizure disorder ICD Code: G40.909 - Epilepsy, unspecified, not intractable, without status epilepticus (2) Syncope ICD Code: R55 - Syncope and collapse Status: Acute (3) Acute kidney injury ICD Code: N17.9 - Acute kidney failure, unspecified (4) CKD (chronic kidney disease) stage 2, GFR 60-89 ml/min ICD Code: N18.2 - Chronic kidney disease, stage 2 (mild) (5) Morbid obesity ICD Code: E66.01 - Morbid (severe) obesity due to excess calories Assessment and Plan Mr. Birmingham is a pleasant 61-year-old male with a history of seizure disorder, hypertension, anxiety/depression who presents to the emergency department due to lightheadedness, dizziness and near syncope. Patient feels that his symptoms were similar to his seizure activities. He sees Dr. Ruel Cavazos for seizure disorder. - Near-syncope - Patient's symptoms likely due to orthostatic hypotension. - He recently had diarrhea and also likely due to dehydration from poor oral intake. - IV normal saline 100 cc per hour. - No orthostatic blood pressure - EKG is unremarkable, EKG reviewed by me shows right bundle branch block but normal sinus rhythm. - Chest x-ray reviewed by me shows cardiomegaly. BNP 14. - Seizure disorder -Stable EEG results noted - Further imaging studies including MRI could be considered by neurology. - We'll continue carbamazepine 200 mg 3 times a day, Keppra 500 mg twice a day, Zonisamide 200 mg daily - Acute kidney injury. Resolved with IV hydration - CKD stage II - Anxiety/depression - continue citalopram 40 mg daily - Hypertension - currently normotensive. Patient is on lisinopril at home but not sure if he takes it or not. Full code. Heparin SQ. Discharge Planning Discharge patient to home Condition on discharge: Improved Regular Diet as tolerated Ad Shannon activity Rx written: None Follow-up with primary care physician Problem Qualifiers (1) Syncope: Qualified Codes: R55 - Syncope and collapse Jonathan Garcia MD May 06, 2017 11:46
[2017-05-06 12:00] VITALS: BP 157/84; PULSE 90; RESP 18; TEMP 97.9; O2SAT 94
[2017-05-06] MEDS ORDERED: LISINOPRIL 20 MG TAB PO SCH (12:00)
--- NOTE | 2017-05-06 12:03 | HHI.DCPOC ---
Discharge Care Plan Diagnosis: (1) Syncope Your Health Problems Are: Difficulty with ADL Exercise Tolerance Goals to Promote Your Health * To prevent worsening of your condition and complications * To maintain your health at the optimal level Directions to Meet Your Goals Take your medications as prescribed Follow your dietary instruction Follow activity as directed Keep your appointments as scheduled Take your immunizations and boosters as scheduled If your symptoms worsen call your PCP, if no PCP go to Urgent Care Center or Emergency Room Smoking is Dangerous to Your Health. Avoid second hand smoke Call the 24-hour hour crisis hotline for domestic abuse at Jonathan Garcia MD May 06, 2017 12:03
== END 2017-05-06 13:57 | disposition home or self-care (01) ==
LOC: NEPE 03:54 → INTOOBSV 06:37 → NEDA 06:37 → N05A 09:48
PROVIDERS: ADMIT Internal Medicine; ATTEND Internal Medicine
DX: I95.1 Orthostatic hypotension (principal); E86.0 Dehydration; D72.829 Elevated white blood cell count, unspecified; N39.0 Urinary tract infection, site not specified; R07.89 Other chest pain; M54.6 Pain in thoracic spine; Z86.718 Personal history of other venous thrombosis and embolism; G47.33 Obstructive sleep apnea (adult) (pediatric); F41.9 Anxiety disorder, unspecified; F32.9 Major depressive disorder, single episode, unspecified; Z79.01 Long term (current) use of anticoagulants; Z86.73 Personal history of transient ischemic attack (TIA), and cerebral infarction without residual deficits; F17.200 Nicotine dependence, unspecified, uncomplicated; I45.10 Unspecified right bundle-branch block; R94.31 Abnormal electrocardiogram [ECG] [EKG]; E66.01 Morbid (severe) obesity due to excess calories; I12.9 Hypertensive chronic kidney disease with stage 1 through stage 4 chronic kidney disease, or unspecified chronic kidney disease; N18.2 Chronic kidney disease, stage 2 (mild); Z79.899 Other long term (current) drug therapy; Z79.4 Long term (current) use of insulin; R06.02 Shortness of breath
CPT/HCPCS: 70450; 71045; 71275; 72125; 80053; 80156; 80307; 81001; 82550; 82552; 83605; 83690; 83735; 83880; 84484; 85007; 85025; 85027; 85610; 85730; 86140; 87040; 93005; 93306; 95819; 96361; 96365; 96366; 96372; 97162; 97530; 99285; G0378; G8987; G8988; J1644; J2543; J3370; J7030; J7040; J7050; Q9967

== ENCOUNTER 2017-08-17 15:54 | Inpatient (IN) | payer MEDICARE, OTHER ==
[~2017-08-17] VITALS: Ht 177.8 cm; Wt 139.4 kg
[~2017-08-17 15:54] MED LIST changes: +ZONI100C2 PO; -ZONI1CAP17 PO
[2017-08-17 16:02] VITALS: BP 95/51; PULSE 71; RESP 18; TEMP 98.2; O2SAT 96
--- NOTE | 2017-08-17 16:13 | PD ---
HPI Chief Complaint: Pain: Acute or Chronic Time Seen by Provider: 16:04 Travel History International Travel<30 days: No Contact w/Intl Traveler<30days: No Traveled to known affect area: No History of Present Illness HPI 62-year-old male presents via EMS complaining of pain. Symptoms started yesterday. He is complaining of pain in his neck and in his back. Pain is worse when walking. He reports that yesterday his legs felt weak and he fell to the ground. He reports that this happened once more this morning at 5 AM. He reports that he has frequent breakthrough seizures and he reports that he had one seizure last week and a [employer] parking lot. He reports that he has been compliant with his antiseizure medication. His neurologist is Dr. Cavazos. He denies any current weakness. He denies any bowel or bladder incontinence, saddle anesthesia, abdominal pain, chest pain, nausea or vomiting, he has no other complaints. PFSH Past Medical History Hx Anticoagulant Therapy: Yes Arthritis: Yes Blood Disorders: No Anxiety: Yes Depression: Yes Heart Rhythm Problems: No Cancer: No Cardiac Catheterization: No Cardiovascular Problems: Yes High Cholesterol: Yes Congestive Heart Failure: No Cerebrovascular Accident: Yes Diabetes: No Diminished Hearing: No Deep Vein Thrombosis: Yes Endocrine: No Gastrointestinal Disorders: No Genitourinary: No Headaches: Yes Hypertension: Yes Immune Disorder: No Implanted Vascular Access Dvce: No Musculoskeletal: Yes Neurologic: Yes Psychiatric: No Reproductive: No Respiratory: No Migraines: Yes Seizures: Yes Past Surgical History Abdominal Surgery: Yes ([place]IG[place] IN 79) AICD: No Arteriovenous Shunt: No Cardiac Surgery: No Cholecystectomy: Yes (1978) Coronary Artery Bypass Graft: No Ear Surgery: No Endocrine Surgery: No Eye Surgery: No Genitourinary Surgery: Yes (CHOLECYSTECTOMY) Gynecologic Surgery: No Insulin Pump: No Joint Replacement: No Neurologic Surgery: No Oral Surgery: No Pacemaker: No Thoracic Surgery: No Other Surgery: Yes Family History Family Myocardial Infarction: No Social History Alcohol Use: Yes Tobacco Use: No (QUIT 1984, DIP CURRENTLY) Substance Use: No Allergies-Medications (Allergen,Severity, Reaction): Coded Allergies: No Known Allergies (Verified Adverse Reaction, Unknown, 05/05/17) Reported Meds & Prescriptions Reported Meds & Active Scripts Active Reported Xarelto (Rivaroxaban) 20 Mg Tab 20 Mg PO DAILY Hydrochlorothiazide 25 Mg Tab 25 Mg PO DAILY Potassium Chloride ER (Potassium Chloride) 10 Meq Cap 10 Meq PO DAILY Enalapril (Enalapril Maleate) 5 Mg Tab 5 Mg PO DAILY Levothyroxine (Levothyroxine Sodium) 100 Mcg Tab 100 Mcg PO DAILY Temazepam 15 Mg Cap 15 Mg PO HS PRN Alprazolam 0.5 Mg Tab 0.5 Mg PO Q4H PRN Zonisamide 100 Mg Cap 200 Mg PO DAILY Carbamazepine 200 Mg Tab 200 Mg PO TID Levetiracetam 500 Mg Tab 500 Mg PO BID Citalopram (Citalopram Hydrobromide) 40 Mg Tab 40 Mg PO DAILY Lisinopril 20 Mg Tab 20 Mg PO DAILY Review of Systems Except as stated in HPI: all other systems reviewed are Neg Physical Exam Narrative GENERAL: Well-developed well-nourished male in no acute distress, BMI 42.7. SKIN: Warm and dry. There is no bruising or soft tissue swelling. No open wounds. HEAD: Atraumatic. Normocephalic. EYES: Pupils equal and round. No scleral icterus. No injection or drainage. ENT: No nasal bleeding or discharge. Mucous membranes pink and moist. NECK: Trachea midline. No JVD. CARDIOVASCULAR: Regular rate and rhythm. No murmur appreciated. RESPIRATORY: No accessory muscle use. Clear to auscultation. Breath sounds equal bilaterally. GASTROINTESTINAL: Abdomen soft, non-tender, nondistended. Hepatic and splenic margins not palpable. Rectal examination reveals normal anal sphincter tone. MUSCULOSKELETAL: No obvious deformities. There is no reproducible tenderness to palpation along the neck or back. Patient has 5 out of 5 muscle strength on hip flexion and extension, leg flexion and extension, dorsi and plantar flexion. There is mild chronic external rotation of the right ankle from a previous ankle fracture according to the patient. The patient is able to stand without assistance. NEUROLOGICAL: Awake and alert. No obvious cranial nerve deficits. Motor grossly within normal limits. Normal speech. Data Data Last Documented VS Vital Signs Date Time Temp Pulse Resp B/P (MAP) Pulse Ox O2 Delivery O2 Flow Rate FiO2 08/17/17 17:46 72 18 115/56 (75) 99 Room Air 08/17/17 16:02 98.2 Orders Orders Basic Metabolic Panel (Bmp) (08/17/17 16:14) Complete Blood Count With Diff (08/17/17 16:14) Magnesium (Mg) (08/17/17 16:14) Creatine Kinase (Cpk) (08/17/17 16:14) Iv Access Insert/Monitor (08/17/17 16:14) Mri C Spine W/O Contrast (08/17/17 ) Mri T Spine W/O Contrast (08/17/17 ) Mri L Spine W/O Contrast (08/17/17 ) Sodium, Random Urine (08/17/17 17:06) Creatinine, Random Urine (08/17/17 17:06) Sodium Chlor 0.9% 1000 Ml Inj (Ns 1000 M (08/17/17 17:15) Admit Order (Ed Use Only) (08/17/17 17:49) Labs Laboratory Tests Test 08/17/17 16:35 White Blood Count 14.8 TH/MM3 Red Blood Count 4.00 MIL/MM3 Hemoglobin 12.1 GM/DL Hematocrit 35.3 % Mean Corpuscular Volume 88.2 FL Mean Corpuscular Hemoglobin 30.2 PG Mean Corpuscular Hemoglobin Concent 34.2 % Red Cell Distribution Width 12.9 % Platelet Count 404 TH/MM3 Mean Platelet Volume 6.4 FL Neutrophils (%) (Auto) 84.2 % Lymphocytes (%) (Auto) 6.3 % Monocytes (%) (Auto) 8.8 % Eosinophils (%) (Auto) 0.2 % Basophils (%) (Auto) 0.5 % Neutrophils # (Auto) 12.4 TH/MM3 Lymphocytes # (Auto) 0.9 TH/MM3 Monocytes # (Auto) 1.3 TH/MM3 Eosinophils # (Auto) 0.0 TH/MM3 Basophils # (Auto) 0.1 TH/MM3 CBC Comment DIFF FINAL Differential Comment Blood Urea Nitrogen 26 MG/DL Creatinine 2.54 MG/DL Random Glucose 105 MG/DL Calcium Level 8.5 MG/DL Magnesium Level 2.3 MG/DL Sodium Level 124 MEQ/L Potassium Level 3.7 MEQ/L Chloride Level 86 MEQ/L Carbon Dioxide Level 22.9 MEQ/L Anion Gap 15 MEQ/L Estimat Glomerular Filtration Rate 26 ML/MIN Total Creatine Kinase 191 U/L MDM Medical Decision Making Medical Screen Exam Complete: Yes Emergency Medical Condition: Yes Medical Record Reviewed: Yes Differential Diagnosis Muscle strain, muscle spasm, spinal stenosis, herniated nucleus pulposus, spinal cord contusion, hematoma, rhabdomyolysis Narrative Course 62-year-old male with history of seizures presents with 2 days of neck and back pain, possibly from breakthrough seizure that he had at [facility] last week. He reports that he has had 2 episodes of weakness in the lower extremities in the past 24 hours. Currently he has no weakness. Given his history, plan is for MRI of the cervical, thoracic and lumbar spine. BMP reveals a sodium 124 as well as an acute kidney injury with a GFR of 26. IV fluids initiated. The patient will be admitted. Diagnosis Primary Impression: Acute kidney injury Additional Impression: Hyponatremia Admitting Information Admitting Physician Requests: Admit Antonio Kim Aug 17, 2017 16:13
[2017-08-17] MEDS ORDERED: POTA10CA PO (16:17)
[2017-08-17] MEDS ORDERED: ENAL5TAB PO (16:17)
[2017-08-17] MEDS ORDERED: TEMA15CA PO (16:17)
[2017-08-17] MEDS ORDERED: XARE20TA PO (16:17)
[2017-08-17] MEDS ORDERED: LEVO100T5 PO (16:17)
[2017-08-17] MEDS ORDERED: HYDR25TA5 PO (16:17)
[2017-08-17] MEDS ORDERED: ALPR0.5T3 PO (16:17)
[2017-08-17 16:45] LABS: AUTOMATED NEUTROPHIL # 12.4 TH/MM3 (1.8-7.7); BASOPHIL # 0.1 TH/MM3 (0-0.2); BASOPHIL % 0.5 % (0.0-2.0); EOSINOPHIL % 0.2 % (0.0-4.0); HEMATOCRIT 35.3 % (39.0-51.0); HEMOGLOBIN 12.1 GM/DL (13.0-17.0); LYMPH % 6.3 % (9.0-44.0); LYMPHOCYTE # 0.9 TH/MM3 (1.0-4.8); MEAN CELL VOLUME 88.2 FL (80.0-100.0); MEAN CORPUSCULAR HEMOGLOBIN 30.2 PG (27.0-34.0); MEAN CORPUSCULAR HGB CONC 34.2 % (32.0-36.0); MEAN PLATELET VOLUME 6.4 FL (7.0-11.0); MONO % 8.8 % (0.0-8.0); MONOCYTE # 1.3 TH/MM3 (0-0.9); NEUT % 84.2 % (16.0-70.0); PLATELET COUNT 404 TH/MM3 (150-450); RED CELL DISTRIBUTION WIDTH 12.9 % (11.6-17.2); WHITE BLOOD COUNT 14.8 TH/MM3 (4.0-11.0)
[2017-08-17 17:03] LABS: BICARBONATE 22.9 MEQ/L (21.0-32.0); CALCIUM 8.5 MG/DL (8.5-10.1); CREATININE 2.54 MG/DL (0.60-1.30); MAGNESIUM 2.3 MG/DL (1.5-2.5)
[2017-08-17] MEDS ORDERED: SODIUM CHLOR 0.9% 1000 ML INJ 1,000 ML IV ONE (17:15)
--- NOTE | 2017-08-17 17:21 | RADRPT ---
EXAM DATE/TIME: 08/17/2017 16:50 [facility] COMPARISON: No previous studies available for comparison. INDICATIONS : Pain. Fall. Lower extremity weakness. MEDICAL HISTORY : Seizures. SURGICAL HISTORY : Cholecystectomy. ORIF right ankle. ENCOUNTER: Initial ACUITY: 4-6 days PAIN SCORE: 1/10 LOCATION: Paraspinal TECHNIQUE: Multiplanar multisequence MRI of the thoracic spine was performed. FINDINGS: VERTEBRA: Normal vertebral body height. Bone marrow signal is within normal limits. There are small endplate os teophytes anteriorly. ALIGNMENT: There is no anterolisthesis or retrolisthesis. CORD: Normal signal. T1-T2: No disc herniation, canal stenosis, or neural foraminal stenosis. T2-T3: The thecal sac has a normal diameter. No evidence of disc bulge or protrusion. T3-T4: The thecal sac has a normal diameter. No evidence of disc bulge or protrusion. T4-T5: The thecal sac has a normal diameter. No evidence of disc bulge or protrusion. T5-T6: The thecal sac has a normal diameter. No evidence of disc bulge or protrusion. T6-T7: The thecal sac has a normal diameter. No evidence of disc bulge or protrusion. T7-T8: The thecal sac has a normal diameter. No evidence of disc bulge or protrusion. T8-T9: The thecal sac has a normal diameter. No evidence of disc bulge or protrusion. T9-T10: The thecal sac has a normal diameter. No evidence of disc bulge or protrusion. T10-T11: The thecal sac has a normal diameter. No evidence of disc bulge or protrusion. T11-T12: The thecal sac has a normal diameter. No evidence of disc bulge or protrusion. T12-L1: The thecal sac has a normal diameter. No evidence of disc bulge or protrusion. The visualized paraspinous structures demonstrate no acute finding. CONCLUSION: Degenerative change of the thoracic spine. No significant disc herniation, canal stenosis, or neural foraminal stenosis is identified. Nate Burton MD on August 17, 2017 at 17:17 Board Certified Radiologist. This report was verified electronically.
--- NOTE | 2017-08-17 17:27 | RADRPT ---
EXAM DATE/TIME: 08/17/2017 16:50 [facility] COMPARISON: No previous studies available for comparison. INDICATIONS : Pain. Fall. Lower extremity weakness. MEDICAL HISTORY : Seizures. SURGICAL HISTORY : Cholecystectomy. ORIF right ankle. ENCOUNTER: Initial ACUITY: 4-6 days PAIN SCORE: 1/10 LOCATION: Paraspinal TECHNIQUE: Multiplanar multisequence MRI of the lumbar spine was performed without contrast. FINDINGS: The most caudal appearing lumbar vertebra is numbered as L5. VERTEBRAE: Bone marrow signal is within normal limits. There is a hemangioma within the left aspect of the L1 ve rtebral body. No anterolisthesis or retrolisthesis is present. Vertebral body height is maintained. CONUS: Normal level and configuration. T12-L1: No disc herniation, canal stenosis, or neural foraminal stenosis. L1-L2: No disc herniation, canal stenosis, or neural foraminal stenosis. L2-L3: No disc herniation, canal stenosis, or neural foraminal stenosis. L3-L4: No disc herniation, canal stenosis, or neural foraminal stenosis. There is mild facet and ligamentum flavum hypertrophy. L4-L5: Mild disc desiccation with a mild diffuse disc bulge. There is mild facet hypertrophy with fluid in t he facet joints. No spinal canal stenosis or neural foraminal stenosis is present. L5-S1: Disc desiccation with minimal central disc protrusion. There is mild facet hypertrophy. No spinal can al stenosis or neural foraminal stenosis is present. The visualized paraspinous structures demonstrate no acute finding. CONCLUSION: Mild degenerative disc disease at L4-L5 and L5-S1, as above. However, no significant spinal canal andrew nosis or neural foraminal narrowing is present. Nate Burton MD on August 17, 2017 at 17:21 Board Certified Radiologist. This report was verified electronically.
--- NOTE | 2017-08-17 17:40 | RADRPT ---
EXAM DATE/TIME: 08/17/2017 16:50 [facility] COMPARISON: No previous studies available for comparison. INDICATIONS : Pain. Fall. Lower extremity weakness. MEDICAL HISTORY : Seizures. SURGICAL HISTORY : Cholecystectomy. Right ankle ORIF. ENCOUNTER: Initial ACUITY: 4-6 days PAIN SCORE: 1/10 LOCATION: Paraspinal TECHNIQUE: Multiplanar, multisequence MRI examination of the cervical spine was performed. FINDINGS: Examination quality is degraded by motion artifact. VERTEBRAE: Normal vertebral body height. Bone marrow signal is within normal limits. ALIGNMENT: No anterolisthesis or retrolisthesis. CORD: Normal configuration and signal. POST FOSSA: The cerebellar tonsils are normal in position. The craniocervical junction and C1 and C2 demonstrate no definite abnormality. C2-C3: There is mild left facet arthrosis. No disc herniation, canal stenosis, or neural foraminal stenosis is present. C3-C4: Small diffuse posterior disc osteophyte complex. No definite canal stenosis or neural foraminal narro wing is seen. C4-C5: Minimal posterior disc osteophyte complex. No canal stenosis or neural foraminal stenosis is seen. C5-C6: The central posterior disc osteophyte complex abuts the spinal cord. No canal stenosis or neural fora consuelo stenosis is appreciated. C6-C7: No definite canal stenosis or neural foraminal stenosis is seen. C7-T1: No definite canal stenosis or neural foraminal stenosis is seen. CONCLUSION: Examination quality is degraded by motion artifact. There is mild degenerative disc disease, most sev ere at C5-C6, as above. However, no significant spinal canal stenosis or neural foraminal stenosis is visualized. Nate Burton MD on August 17, 2017 at 17:33 Board Certified Radiologist. This report was verified electronically.
[2017-08-17 17:46] VITALS: BP 115/56; PULSE 72; RESP 18; O2SAT 99
[2017-08-17] MEDS ORDERED: HEPARIN SODIUM - SQ 10,000 UNITS/ML VIAL SQ SCH (18:00)
[2017-08-17] MEDS ORDERED: ACETAMINOPHEN 325 MG TAB PO PRN (18:15)
[2017-08-17] MEDS ORDERED: NALOXONE HCL 0.4 MG/ML AMP IV PUSH PRN (18:15)
[2017-08-17] MEDS ORDERED: MAGNESIUM HYDROXIDE SUSP 30 ML CUP PO PRN (18:15)
[2017-08-17] MEDS ORDERED: ONDANSETRON HCL 4 MG/2 ML VIAL IVP PRN (18:15)
[2017-08-17] MEDS ORDERED: SENNOSIDES 8.6 MG TAB PO PRN (18:15)
[2017-08-17] MEDS ORDERED: LORazepam 2 MG/ML VIAL IV PUSH PRN (18:15)
[2017-08-17] MEDS ORDERED: BISACODYL 10 MG SUPP RECTAL PRN (18:15)
[2017-08-17] MEDS ORDERED: LACTULOSE SYRUP 20 GM/30 ML CUP PO PRN (18:15)
--- NOTE | 2017-08-17 18:23 | HHI.HP ---
[facility] Service [facility] Primary Care Physician Unknown Admission Diagnosis Hyponatremia, acute kidney injury Diagnoses: (1) Acute renal failure (2) Hyponatremia (3) Seizure disorder Chief Complaint: Back pain Travel History International Travel<30 Days: No Contact w/Intl Traveler <30 Da: No Traveled to Known Affected Are: No History of Present Illness Patient is a 62-year-old male who presented to the emergency department with complaints of pain in his neck and upper back that started yesterday. He states that his neck was stiff and he stretched it. After stretching his neck he developed pain in his neck and upper back. The pain is exacerbated by walking and other movements. He states that his legs have been weak. He has seizure disorder and states that his most recent seizure was 1 week ago. He states that his weakness is better at this time. He denies chest pain or dyspnea. He does report paresthesias "behind my elbows and behind my knees". Review of Systems ROS Limitations: Poor Historian Constitutional: DENIES: Fever, Chills, Night Sweats Eyes: DENIES: Blurred vision, Vision loss Ears, nose, mouth, throat: DENIES: Hearing loss Respiratory: DENIES: Cough, Wheezing, Sputum production, Shortness of breath Cardiovascular: DENIES: Chest pain, Palpitations, Dyspnea on Exertion, Lower Extremity Edema Gastrointestinal: DENIES: Abdominal pain, Constipation, Diarrhea, Nausea, Vomiting Genitourinary: DENIES: Urinary frequency, Urinary incontinence, Urgency, Hematuria, Dysuria, Nocturia Musculoskeletal: COMPLAINS OF: Back pain, DENIES: Joint pain Integumentary: DENIES: Pruritus, Rash Hematologic/lymphatic: DENIES: Bruising Neurologic: DENIES: Headache Past Family Social History Past Medical History Hypertension History of CVA History of DVT Anxiety/depression Seizure disorder History of migraine headaches Past Surgical History Cholecystectomy Right ankle ORIF Reported Medications Xarelto (Rivaroxaban) 20 Mg Tab 20 Mg PO DAILY Hydrochlorothiazide 25 Mg Tab 25 Mg PO DAILY Potassium Chloride ER (Potassium Chloride) 10 Meq Cap 10 Meq PO DAILY Enalapril (Enalapril Maleate) 5 Mg Tab 5 Mg PO DAILY Levothyroxine (Levothyroxine Sodium) 100 Mcg Tab 100 Mcg PO DAILY Temazepam 15 Mg Cap 15 Mg PO HS PRN Alprazolam 0.5 Mg Tab 0.5 Mg PO Q4H PRN Zonisamide 100 Mg Cap 200 Mg PO DAILY Carbamazepine 200 Mg Tab 200 Mg PO TID Levetiracetam 500 Mg Tab 500 Mg PO BID Citalopram (Citalopram Hydrobromide) 40 Mg Tab 40 Mg PO DAILY Lisinopril 20 Mg Tab 20 Mg PO DAILY Allergies: Coded Allergies: No Known Allergies (Verified Adverse Reaction, Unknown, 05/05/17) Family History Heart disease Liver disease Kidney disease Social History Quit smoking 1984, continues to use chewing tobacco. Denies alcohol or illicit drug use. Physical Exam Vital Signs Vital Signs Date Time Temp Pulse Resp B/P (MAP) Pulse Ox O2 Delivery O2 Flow Rate FiO2 08/17/17 17:46 72 18 115/56 (75) 99 Room Air 08/17/17 16:42 18 08/17/17 16:02 98.2 71 18 95/51 (66) 96 Physical Exam GENERAL: Obese male in no acute distress. HEENT: Normocephalic, atraumatic. Pupils equal, round and reactive. Extraocular movements intact. No scleral icterus. No injection or drainage. Oropharynx is clear. Mucous membranes are moist. CARDIOVASCULAR: Regular rate and rhythm without murmurs, gallops, or rubs. RESPIRATORY: Clear to auscultation. No wheezes, rales, or rhonchi. Breathing is non-labored. GASTROINTESTINAL: Abdomen soft, non-tender, nondistended. EXTREMITIES: No lower extremity edema. No calf tenderness. PSYCH: Alert and oriented x 3. NEURO: Cranial nerves II through XII are grossly intact. Strength is 5/5 in all 4 extremities. No focal deficits noted. Laboratory Laboratory Tests Test 08/17/17 16:35 White Blood Count 14.8 Red Blood Count 4.00 Hemoglobin 12.1 Hematocrit 35.3 Mean Corpuscular Volume 88.2 Mean Corpuscular Hemoglobin 30.2 Mean Corpuscular Hemoglobin Concent 34.2 Red Cell Distribution Width 12.9 Platelet Count 404 Mean Platelet Volume 6.4 Neutrophils (%) (Auto) 84.2 Lymphocytes (%) (Auto) 6.3 Monocytes (%) (Auto) 8.8 Eosinophils (%) (Auto) 0.2 Basophils (%) (Auto) 0.5 Neutrophils # (Auto) 12.4 Lymphocytes # (Auto) 0.9 Monocytes # (Auto) 1.3 Eosinophils # (Auto) 0.0 Basophils # (Auto) 0.1 CBC Comment DIFF FINAL Differential Comment Blood Urea Nitrogen 26 Creatinine 2.54 Random Glucose 105 Calcium Level 8.5 Magnesium Level 2.3 Sodium Level 124 Potassium Level 3.7 Chloride Level 86 Carbon Dioxide Level 22.9 Anion Gap 15 Estimat Glomerular Filtration Rate 26 Total Creatine Kinase 191 Result Diagram: 08/17/17 1635 08/17/17 1635 Imaging Last Impressions Thoracic Spine MRI 08/17/17 0000 Signed Impressions: Service Date/Time: Thursday, August 17, 2017 16:50 - CONCLUSION: Degenerative change of the thoracic spine. No significant disc herniation, canal stenosis, or neural foraminal stenosis is identified. Nate Burton MD Lumbar Spine MRI 08/17/17 0000 Signed Impressions: Service Date/Time: Thursday, August 17, 2017 16:50 - CONCLUSION: Mild degenerative disc disease at L4-L5 and L5-S1, as above. However, no significant spinal canal stenosis or neural foraminal narrowing is present. Nate Burton MD Cervical Spine MRI 08/17/17 0000 Signed Impressions: Service Date/Time: Thursday, August 17, 2017 16:50 - CONCLUSION: Examination quality is degraded by motion artifact. There is mild degenerative disc disease , most severe at C5-C6, as above. However, no significant spinal canal stenosis or neural foraminal stenosis is visualized. Nate Burton MD Capdannai VTE Risk Assessment Caprini VTE Risk Assessment: Mod/High Risk (score >= 2) Caprini Risk Assessment Model Point Value = 1 Point Value = 2 Point Value = 3 Point Value = 5 Age 41-60 Minor surgery BMI > 25 kg/m2 Swollen legs Varicose veins or History of unexplained or recurrent spontaneous Oral contraceptives or hormone replacement Sepsis (< 1 month) Serious lung disease, including pneumonia (< 1 month) Abnormal pulmonary function Acute myocardial infarction Congestive heart failure (< 1 month) History of inflammatory bowel disease Medical patient at bed rest Age 61-74 Arthroscopic surgery Major open surgery (> 45 min) Laparoscopic surgery (> 45 min) Malignancy Confined to bed (> 72 hours) Immobilizing plaster cast Central venous access Age >= 75 History of VTE Family history of VTE Factor V Leiden Prothrombin [id number] Lupus anticoagulant Anticardiolipin antibodies Elevated serum homocysteine Heparin-induced thrombocytopenia Other congenital or acquired thrombophilia Stroke (< 1 month) Elective arthroplasty Hip, pelvis, or leg fracture Acute spinal cord injury (< 1 month) Prophylaxis Regimen Total Risk Factor Score Risk Level Prophylaxis Regimen 0-1 Low Early ambulation 2 Moderate Order ONE of the following: *Sequential Compression Device (SCD) *Heparin 5000 units SQ BID 3-4 Higher Order ONE of the following medications: *Heparin 5000 units SQ TID *Enoxaparin/Lovenox 40 mg SQ daily (WT < 150 kg, CrCl > 30 mL/min) *Enoxaparin/Lovenox 30 mg SQ daily (WT < 150 kg, CrCl > 10-29 mL/min) *Enoxaparin/Lovenox 30 mg SQ BID (WT < 150 kg, CrCl > 30 mL/min) AND/OR *Sequential Compression Device (SCD) 5 or more Highest Order ONE of the following medications: *Heparin 5000 units SQ TID (Preferred with Epidurals) *Enoxaparin/Lovenox 40 mg SQ daily (WT < 150 kg, CrCl > 30 mL/min) *Enoxaparin/Lovenox 30 mg SQ daily (WT < 150 kg, CrCl > 10-29 mL/min) *Enoxaparin/Lovenox 30 mg SQ BID (WT < 150 kg, CrCl > 30 mL/min) AND *Sequential Compression Device (SCD) Assessment and Plan Assessment and Plan 1. Back pain: MRIs of the cervical, thoracic, and lumbar spine show some degenerative disc disease but no significant stenosis. Physical therapy eval. Continue pain control. 2. Acute renal failure: Patient states that he has had adequate fluid intake recently. Will add IV fluids and monitor BUN and creatinine. Avoid nephrotoxins. Consult nephrology. 3. Hyponatremia: Continue IV fluids and monitor labs. 4. Seizure disorder: Continue antiepileptic medications. Seizure precautions. Ativan as needed for seizure. 5. History of DVT: Continue Xarelto. 6. Hypertension: Continue lisinopril. 7. Hypothyroidism: Continue Synthroid. 8. Depression/anxiety: Continue citalopram. Marco Antonio Riggs MD Aug 17, 2017 18:23
[2017-08-17] MEDS ORDERED: ALPRAZolam 0.5 MG TAB PO PRN (18:30)
[2017-08-17] MEDS: NS + KCL 20 MEQ INJ 1,000 ML IV SCH (18:31)
[2017-08-17 20:00] VITALS: BP 116/60; PULSE 82; RESP 20; TEMP 97.7; O2SAT 97
[2017-08-17] MEDS: levETIRAcetam 500 MG TAB PO SCH (20:23)
[2017-08-17] MEDS: DOCUSATE SODIUM 50 MG/SENNA 8.6 MG TAB PO SCH (20:23)
[2017-08-17 21:35] LABS: BACTERIA, URINE RARE /hpf; BILIRUBIN, URINE NEG (NEG); BLOOD, URINE NEG (NEG); GLUCOSE,URINE NEG (NEG); KETONE, URINE NEG (NEG); MUCUS URINE FEW /lpf (OCC); NITRITE,URINE NEG (NEG); PH, URINE 5.5 (5.0-8.5); URINE COLOR YELLOW (YELLW/STRAW); URINE LEUKOCYTE ESTERASE NEG (NEG)
[2017-08-17 21:39] LABS: CREATININE, RANDOM URINE 175.3 MG/DL
[2017-08-17] MEDS: TEMAZEPAM 15 MG CAP PO PRN (23:39)
[2017-08-17] MEDS: ALPRAZolam 0.5 MG TAB PO PRN (23:40)
[2017-08-18] VITALS (8 sets, daily range): BP systolic 109–131; BP diastolic 55–64; PULSE 73–87; RESP 17–21; TEMP 97.1–98.2; O2SAT 94–98
[2017-08-18] MEDS: NS + KCL 20 MEQ INJ 1,000 ML IV SCH ×2 (03:48→14:19)
[2017-08-18 06:07] LABS: AUTOMATED NEUTROPHIL # 7.2 TH/MM3 (1.8-7.7); BASOPHIL % 0.4 % (0.0-2.0); EOSINOPHIL # 0.1 TH/MM3 (0-0.4); EOSINOPHIL % 1.3 % (0.0-4.0); HEMATOCRIT 33.2 % (39.0-51.0); HEMOGLOBIN 11.4 GM/DL (13.0-17.0); LYMPH % 12.9 % (9.0-44.0); LYMPHOCYTE # 1.2 TH/MM3 (1.0-4.8); MEAN CELL VOLUME 87.8 FL (80.0-100.0); MEAN CORPUSCULAR HEMOGLOBIN 30.2 PG (27.0-34.0); MEAN CORPUSCULAR HGB CONC 34.4 % (32.0-36.0); MEAN PLATELET VOLUME 6.6 FL (7.0-11.0); MONO % 9.5 % (0.0-8.0); MONOCYTE # 0.9 TH/MM3 (0-0.9); NEUT % 75.9 % (16.0-70.0); PLATELET COUNT 420 TH/MM3 (150-450); RED BLOOD COUNT 3.79 MIL/MM3 (4.50-5.90); RED CELL DISTRIBUTION WIDTH 12.7 % (11.6-17.2); WHITE BLOOD COUNT 9.5 TH/MM3 (4.0-11.0)
[2017-08-18] MEDS: LEVOTHYROXINE SODIUM 100 MCG TAB PO SCH (06:24)
[2017-08-18 06:39] LABS: CALCIUM 8.4 MG/DL (8.5-10.1); CREATININE 1.69 MG/DL (0.60-1.30)
--- NOTE | 2017-08-18 09:50 | PD.CONS ---
HPI Service Nephrology Consult Requested By Dr. Riggs Reason for Consult Acute kidney injury and hyponatremia Primary Care Physician Unknown History of Present Illness Patient is a 62 year old male with a past medical history of seizures, Hypertension, anxiety/depression, history of DVT, migraines, and history of CVA. He presented to hospital with unrelieved back and neck pain. He reported that he had a grand mal seizure about 2 weeks ago at [facility] and has been having increasing pain. Imaging of lumbar, thoracic, and cervical region with no acute findings, degenerative changes noted. Nephrology is consulted for acute kidney injury and hyponatremia. On admission creatinine was 2.54 which has improved today at 1.69 with IVF's. His baseline creatinine is 1.13-1.25 noted February 2017. He denies any dysuria however reports that he has been having difficulty with urination at home and can only sit to urinate. Hyponatremia was also noted with sodium level of 124 which has also improved with IVF's to 130 this morning. From records in April his was not hyponatremic so this was acute. He stated that he has had medication changes approximately 6 months ago but is not sure what medication. He also reports that over the last week that he has had diarrhea, 3-4 loose stools per day. (Nancy Acevedo) Review of Systems ROS Limitations: Poor Historian Respiratory: DENIES: Wheezing, Sputum production, Shortness of breath Cardiovascular: DENIES: Chest pain Gastrointestinal: COMPLAINS OF: Diarrhea Musculoskeletal: COMPLAINS OF: Back pain, Neck pain (Nancy Acevedo) Past Family Social History Allergies: Coded Allergies: No Known Allergies (Verified Adverse Reaction, Unknown, 05/05/17) Past Medical History Hypertension anxiety/depression Seizures History of stroke History of deep vein thrombosis Past Surgical History cholecystectomy right ankle ORIF Active Ordered Medications Current Medications Medications (Trade) Dose Ordered Sig/Sydnie Route Start Time Stop Time Status Last Admin (Tylenol) 650 mg Q4H PRN PO 08/17/17 18:15 (Zofran Inj) 4 mg Q6H PRN IVP 08/17/17 18:15 (Narcan Inj) 0.4 mg UNSCH PRN IV PUSH 08/17/17 18:15 (Danielle-Colace) 1 tab BID PO 08/17/17 21:00 08/17/17 20:23 (Milk Of Magnesia Liq) 30 ml Q12H PRN PO 08/17/17 18:15 (Senokot) 17.2 mg Q12H PRN PO 08/17/17 18:15 (Dulcolax Supp) 10 mg DAILY PRN RECTAL 08/17/17 18:15 (Lactulose Liq) 30 ml DAILY PRN PO 08/17/17 18:15 Potassium Chloride/Sodium Chloride 1,000 ml @ 100 mls/hr Q10H IV 08/17/17 18:15 08/18/17 03:48 (Ativan Inj) 1 mg Q2H PRN IV PUSH 08/17/17 18:15 (TEGretol) 200 mg TID PO 08/18/17 09:00 (CeleXA) 40 mg DAILY PO 08/18/17 09:00 (Hydrodiuril) 25 mg DAILY PO 08/18/17 09:00 (Keppra) 500 mg BID PO 08/17/17 21:00 08/17/17 20:23 (Synthroid) 100 mcg DAILY@0600 PO 08/18/17 06:00 08/18/17 06:24 (Prinivil) 20 mg DAILY PO 08/18/17 09:00 (KCl) 10 meq DAILY PO 08/18/17 09:00 (Xarelto) 20 mg DAILY PO 08/18/17 09:00 (Restoril) 15 mg HS PRN PO 08/17/17 18:30 08/17/17 23:39 (Zonegran) 200 mg DAILY PO 08/18/17 09:00 (Xanax) 0.5 mg Q6H PRN PO 08/17/17 18:30 08/17/17 23:40 Family History Heart disease Social History quit smoking in 1984 Chews tobacco No alcohol use Lives alone (Nancy Acevedo) Physical Exam Vital Signs Vital Signs Date Time Temp Pulse Resp B/P (MAP) Pulse Ox O2 Delivery O2 Flow Rate FiO2 08/18/17 08:00 98.0 87 21 109/55 (73) 94 08/18/17 04:00 98.2 84 17 119/60 (79) 96 08/18/17 03:54 79 08/18/17 00:00 97.9 80 17 120/57 (78) 98 08/18/17 00:00 82 08/17/17 20:00 97.7 82 20 116/60 (78) 97 08/17/17 18:58 08/17/17 17:46 72 18 115/56 (75) 99 Room Air 08/17/17 16:42 18 08/17/17 16:02 98.2 71 18 95/51 (66) 96 Physical Exam GENERAL: Patient is alert and oriented. SKIN: Warm and dry. HEAD: Normocephalic. EYES: No scleral icterus. No injection or drainage. NECK: Supple, trachea midline. No JVD or lymphadenopathy. CARDIOVASCULAR: Regular rate and rhythm without murmurs, gallops, or rubs. RESPIRATORY: Breath sounds equal bilaterally. No accessory muscle use. GASTROINTESTINAL: Abdomen soft, non-tender, distended MUSCULOSKELETAL: No cyanosis, or edema. BACK: Nontender without obvious deformity. No CVA tenderness. Laboratory Laboratory Tests Test 08/17/17 16:35 08/17/17 20:14 08/18/17 04:55 White Blood Count 14.8 9.5 Red Blood Count 4.00 3.79 Hemoglobin 12.1 11.4 Hematocrit 35.3 33.2 Mean Corpuscular Volume 88.2 87.8 Mean Corpuscular Hemoglobin 30.2 30.2 Mean Corpuscular Hemoglobin Concent 34.2 34.4 Red Cell Distribution Width 12.9 12.7 Platelet Count 404 420 Mean Platelet Volume 6.4 6.6 Neutrophils (%) (Auto) 84.2 75.9 Lymphocytes (%) (Auto) 6.3 12.9 Monocytes (%) (Auto) 8.8 9.5 Eosinophils (%) (Auto) 0.2 1.3 Basophils (%) (Auto) 0.5 0.4 Neutrophils # (Auto) 12.4 7.2 Lymphocytes # (Auto) 0.9 1.2 Monocytes # (Auto) 1.3 0.9 Eosinophils # (Auto) 0.0 0.1 Basophils # (Auto) 0.1 0.0 CBC Comment DIFF FINAL DIFF FINAL Differential Comment Blood Urea Nitrogen 26 25 Creatinine 2.54 1.69 Random Glucose 105 101 Calcium Level 8.5 8.4 Magnesium Level 2.3 Sodium Level 124 130 Potassium Level 3.7 3.5 Chloride Level 86 94 Carbon Dioxide Level 22.9 24.0 Anion Gap 15 12 Estimat Glomerular Filtration Rate 26 41 Total Creatine Kinase 191 Urine Color YELLOW Urine Turbidity CLEAR Urine pH 5.5 Urine Specific [place] 1.014 Urine Protein 30 Urine Glucose (UA) NEG Urine Ketones NEG Urine Occult Blood NEG Urine Nitrite NEG Urine Bilirubin NEG Urine Urobilinogen LESS THAN 2.0 Urine Leukocyte Esterase NEG Urine RBC 1 Urine WBC 3 Urine Bacteria RARE Urine Mucus FEW Microscopic Urinalysis Comment CULT NOT INDICATED Urine Random Creatinine 175.3 Urine Random Sodium 16 (Nancy Acevedo) Result Diagram: 08/18/17 0455 08/18/17 0455 Imaging Last Impressions Thoracic Spine MRI 08/17/17 0000 Signed Impressions: Service Date/Time: Thursday, August 17, 2017 16:50 - CONCLUSION: Degenerative change of the thoracic spine. No significant disc herniation, canal stenosis, or neural foraminal stenosis is identified. Nate Burton MD Lumbar Spine MRI 08/17/17 0000 Signed Impressions: Service Date/Time: Thursday, August 17, 2017 16:50 - CONCLUSION: Mild degenerative disc disease at L4-L5 and L5-S1, as above. However, no significant spinal canal stenosis or neural foraminal narrowing is present. Nate Burton MD Cervical Spine MRI 08/17/17 0000 Signed Impressions: Service Date/Time: Thursday, August 17, 2017 16:50 - CONCLUSION: Examination quality is degraded by motion artifact. There is mild degenerative disc disease , most severe at C5-C6, as above. However, no significant spinal canal stenosis or neural foraminal stenosis is visualized. Nate Burton MD (Nancy Acevedo) Assessment and Plan Problem List: (1) Acute kidney injury ICD Codes: N17.9 - Acute kidney failure, unspecified Plan: Acute kidney injury most likely prerenal azotemia with rapid improvement in creatinine from 2.54 to 1.69 from possibly diarrhea. Urine sodium at 16 and FeNa 0.19 % Baseline creatinine at 1.13- 1.25 and mild proteinuria is noted Plan Renal US Avoid nephrotoxin agents On lisinopril will continue for proteinuria noted in urine and with creatinine improving. Monitor urinary output and renal panel. (2) Hyponatremia ICD Codes: E87.1 - Hypo-osmolality and hyponatremia Status: Acute Plan: Hyponatremia with sodium level on admission of 124 which has now improved to 130. Patient is on many medications that could possible contribute to hyponatremia however patient does not report any recent medication changes. Hyponatremia could possible be related to extrarenal loesses from diarrhea or SIADH from depression/seizure medication Plan Sodium level has improved appropriately with IVF administration from 124-130 Follow NA levels. Goal less than 6-8 meq correction in 24 hours. Will order orthostatic blood pressures, daily weights and monitor I+O Will order uric acid , TSH, cortisol levels. (Nancy Acevedo) Problem List: (1) Acute kidney injury ICD Codes: N17.9 - Acute kidney failure, unspecified Plan: Acute kidney injury most likely prerenal azotemia with rapid improvement in creatinine from 2.54 to 1.69 from possibly diarrhea. Urine sodium at 16 and FeNa 0.19 % Baseline creatinine at 1.13- 1.25 and mild proteinuria is noted Plan Renal US Avoid nephrotoxin agents On lisinopril will continue for proteinuria noted in urine and with creatinine improving. Monitor urinary output and renal panel. (2) Hyponatremia ICD Codes: E87.1 - Hypo-osmolality and hyponatremia Status: Acute Plan: Hyponatremia with sodium level on admission of 124 which has now improved to 130. Patient is on many medications that could possible contribute to hyponatremia however patient does not report any recent medication changes. Hyponatremia could possible be related to extrarenal loesses from diarrhea or SIADH from depression/seizure medication Plan Sodium level has improved appropriately with IVF administration from 124-130 Follow NA levels. Goal less than 6-8 meq correction in 24 hours. Will order orthostatic blood pressures, daily weights and monitor I+O Will order uric acid , TSH, cortisol levels. Patient seen and examined, agree with above. Creatinine and Sodium improving. Told to restrict free water intake. (Jonathan Hunter MD) Nancy Acevedo Aug 18, 2017 09:50 Jonathan Hunter MD Aug 18, 2017 17:46
[2017-08-18] MEDS: DOCUSATE SODIUM 50 MG/SENNA 8.6 MG TAB PO SCH ×2 (10:01→20:01)
[2017-08-18] MEDS: HYDROCHLOROTHIAZIDE 25 MG TAB PO SCH (10:02)
[2017-08-18] MEDS: ZONISAMIDE 100 MG CAP PO SCH (10:02)
[2017-08-18] MEDS: LISINOPRIL 20 MG TAB PO SCH (10:02)
[2017-08-18] MEDS: levETIRAcetam 500 MG TAB PO SCH ×2 (10:03→20:01)
[2017-08-18] MEDS: POTASSIUM CHLORIDE 10 MEQ CAP PO SCH (10:03)
[2017-08-18] MEDS: RIVAROXABAN 20 MG TAB PO SCH (10:03)
[2017-08-18] MEDS: CITALOPRAM HYDROBROMIDE 40 MG TAB PO SCH (10:03)
[2017-08-18] MEDS: carBAMazepine 200 MG TAB PO SCH ×3 (10:04→17:13)
--- NOTE | 2017-08-18 11:35 | RADRPT ---
EXAM DATE/TIME: 08/18/2017 10:23 [place] COMPARISON: No previous studies available for comparison. INDICATIONS : Increased BUN/Creatinine. MEDICAL HISTORY : Myocardial infarction. Hypercholesterolemia. Hypertension. Migraine. Syncope. DVT. SURGICAL HISTORY : Cholecystectomy. Orthopedic surgery, right ankle. ENCOUNTER: Initial ACUITY: 1 day PAIN SCORE: 0/10 LOCATION: Bilateral flank MEASUREMENTS: RIGHT KIDNEY: 12.1 x 5.5 x 5.8 cm LEFT KIDNEY: 11.6 x 5.5 x 4.7 cm FINDINGS: RIGHT KIDNEY: The right kidney is normal in size and shape with mild cortical thinning and normal echogenicity. The re is no hydronephrosis, calculi or solid mass. There is a small cyst measuring 11 x 8 x 11 mm in the upper pole. LEFT KIDNEY: The left kidney is normal in size and shape with mild cortical thinning and normal echogenicity. Ther e is no hydronephrosis, calculi or solid mass. There are multiple cysts the largest extends off the l ower pole measuring 4.2 x 3.4 x 3.9 cm. BLADDER: Within normal limits given the degree of distension. CONCLUSION: 1. No hydronephrosis. 2. Mild cortical thinning and bilateral cysts. Vern Fontanez MD on August 18, 2017 at 11:31 Board Certified Radiologist. This report was verified electronically.
--- NOTE | 2017-08-18 13:56 | HHI.PR ---
Subjective Remarks Follow-up hyponatremia, renal failure. The patient states that he feels better today. No specific complaints at this time. Denies chest pain, dyspnea, nausea , vomiting. Denies lightheadedness or dizziness. Objective Vitals Vital Signs Date Time Temp Pulse Resp B/P (MAP) Pulse Ox O2 Delivery O2 Flow Rate FiO2 08/18/17 12:00 98.2 77 21 125/58 (80) 96 08/18/17 08:00 98.0 87 21 109/55 (73) 94 08/18/17 04:00 98.2 84 17 119/60 (79) 96 08/18/17 03:54 79 08/18/17 00:00 97.9 80 17 120/57 (78) 98 08/18/17 00:00 82 08/17/17 20:00 97.7 82 20 116/60 (78) 97 08/17/17 18:58 08/17/17 17:46 72 18 115/56 (75) 99 Room Air 08/17/17 16:42 18 08/17/17 16:02 98.2 71 18 95/51 (66) 96 I/O 08/17/17 08/17/17 08/17/17 08/18/17 08/18/17 08/18/17 07:00 15:00 23:00 07:00 15:00 23:00 Intake Total 896 ml Output Total 200 ml 1150 ml Balance -200 ml -254 ml Intake IV Total 896 ml Output Urine Total 200 ml 1150 ml Result Diagram: 08/18/17 0455 08/18/17 0455 Imaging Last Impressions Renal Ultrasound 08/18/17 0000 Signed Impressions: Service Date/Time: Friday, August 18, 2017 10:23 - CONCLUSION: 1. No hydronephrosis. 2. Mild cortical thinning and bilateral cysts. Vern Fontanez MD Thoracic Spine MRI 08/17/17 0000 Signed Impressions: Service Date/Time: Thursday, August 17, 2017 16:50 - CONCLUSION: Degenerative change of the thoracic spine. No significant disc herniation, canal stenosis, or neural foraminal stenosis is identified. Nate Burton MD Lumbar Spine MRI 08/17/17 0000 Signed Impressions: Service Date/Time: Thursday, August 17, 2017 16:50 - CONCLUSION: Mild degenerative disc disease at L4-L5 and L5-S1, as above. However, no significant spinal canal stenosis or neural foraminal narrowing is present. Nate Burton MD Cervical Spine MRI 08/17/17 0000 Signed Impressions: Service Date/Time: Thursday, August 17, 2017 16:50 - CONCLUSION: Examination quality is degraded by motion artifact. There is mild degenerative disc disease , most severe at C5-C6, as above. However, no significant spinal canal stenosis or neural foraminal stenosis is visualized. Nate Burton MD Objective Remarks General: Obese male in no acute distress. Heart: Regular rate and rhythm. No murmur. Lungs: Clear to auscultation bilaterally. No wheezes, rales, or rhonchi. Breathing is nonlabored. Abdomen: Soft, nontender, nondistended. Positive bowel sounds. Extremities: No lower extremity edema. Psych: Alert and oriented. Neuro: Normal speech. No focal deficits noted. Procedures None Urinary Catheter: No Vascular Central Line Catheter: No A/P Problem List: (1) Acute renal failure ICD Code: N17.9 - Acute kidney failure, unspecified (2) Hyponatremia ICD Code: E87.1 - Hypo-osmolality and hyponatremia Status: Acute (3) Seizure disorder ICD Code: G40.909 - Epilepsy, unspecified, not intractable, without status epilepticus Assessment and Plan 1. Back pain: MRIs of the cervical, thoracic, and lumbar spine show some degenerative disc disease but no significant stenosis. Physical therapy eval pending. Continue pain control. 2. Acute renal failure: Appreciate nephrology recommendations. Creatinine improving. Continue IV fluids. 3. Hyponatremia: Continue IV fluids and monitor labs. Sodium is improving. 4. Seizure disorder: Continue antiepileptic medications. Seizure precautions. Ativan as needed for seizure. 5. History of DVT: Continue Xarelto. 6. Hypertension: Continue lisinopril. 7. Hypothyroidism: Continue Synthroid. 8. Depression/anxiety: Continue citalopram. Discharge Planning Possible discharge home next 1-2 days pending further clinical improvement. Marco Antonio Riggs MD Aug 18, 2017 13:56
[2017-08-19] VITALS: BP 125/69; PULSE 74; RESP 19; TEMP 98.6; O2SAT 94
[2017-08-19] MEDS: ALPRAZolam 0.5 MG TAB PO PRN (00:05)
[2017-08-19] MEDS: TEMAZEPAM 15 MG CAP PO PRN (00:05)
[2017-08-19] MEDS: NS + KCL 20 MEQ INJ 1,000 ML IV SCH ×2 (00:10→09:37)
[2017-08-19 04:00] VITALS: BP 120/65; PULSE 73; RESP 19; TEMP 98.6; O2SAT 95
[2017-08-19] MEDS: LEVOTHYROXINE SODIUM 100 MCG TAB PO SCH (05:17)
[2017-08-19 07:12] LABS: AUTOMATED NEUTROPHIL # 6.6 TH/MM3 (1.8-7.7); BASOPHIL # 0.1 TH/MM3 (0-0.2); BASOPHIL % 0.8 % (0.0-2.0); EOSINOPHIL # 0.2 TH/MM3 (0-0.4); EOSINOPHIL % 2.2 % (0.0-4.0); HEMATOCRIT 33.6 % (39.0-51.0); HEMOGLOBIN 11.4 GM/DL (13.0-17.0); LYMPHOCYTE # 1.4 TH/MM3 (1.0-4.8); MEAN CELL VOLUME 88.9 FL (80.0-100.0); MEAN CORPUSCULAR HEMOGLOBIN 30.3 PG (27.0-34.0); MEAN PLATELET VOLUME 6.8 FL (7.0-11.0); MONO % 9.8 % (0.0-8.0); MONOCYTE # 0.9 TH/MM3 (0-0.9); NEUT % 72.2 % (16.0-70.0); PLATELET COUNT 426 TH/MM3 (150-450); RED BLOOD COUNT 3.78 MIL/MM3 (4.50-5.90); RED CELL DISTRIBUTION WIDTH 13.1 % (11.6-17.2); WHITE BLOOD COUNT 9.2 TH/MM3 (4.0-11.0)
[2017-08-19 07:30] LABS: BICARBONATE 23.5 MEQ/L (21.0-32.0); CALCIUM 8.3 MG/DL (8.5-10.1); CREATININE 1.29 MG/DL (0.60-1.30)
[2017-08-19 07:49] LABS: CORTISOL 12.3 MCG/DL
[2017-08-19 08:00] VITALS: BP 134/65; PULSE 79; RESP 17; TEMP 97.5; O2SAT 97
[2017-08-19] MEDS: CITALOPRAM HYDROBROMIDE 40 MG TAB PO SCH (09:31)
[2017-08-19] MEDS: ZONISAMIDE 100 MG CAP PO SCH (09:31)
[2017-08-19] MEDS: RIVAROXABAN 20 MG TAB PO SCH (09:31)
[2017-08-19] MEDS: levETIRAcetam 500 MG TAB PO SCH ×2 (09:31→20:56)
[2017-08-19] MEDS: POTASSIUM CHLORIDE 10 MEQ CAP PO SCH (09:31)
[2017-08-19] MEDS: LISINOPRIL 20 MG TAB PO SCH (09:32)
[2017-08-19] MEDS: HYDROCHLOROTHIAZIDE 25 MG TAB PO SCH (09:32)
[2017-08-19] MEDS: DOCUSATE SODIUM 50 MG/SENNA 8.6 MG TAB PO SCH ×2 (09:32→20:56)
[2017-08-19] MEDS: carBAMazepine 200 MG TAB PO SCH ×3 (09:32→17:56)
--- NOTE | 2017-08-19 10:38 | HHI.NPPN ---
Subjective History of Present Illness Patient is a 62 year old male with a past medical history of seizures, Hypertension, anxiety/depression, history of DVT, migraines, and history of CVA. He presented to hospital with unrelieved back and neck pain. He reported that he had a grand mal seizure about 2 weeks ago at [facility] and has been having increasing pain. Imaging of lumbar, thoracic, and cervical region with no acute findings, degenerative changes noted. Nephrology is consulted for acute kidney injury and hyponatremia. On admission creatinine was 2.54 which has improved today at 1.69 with IVF's. His baseline creatinine is 1.13-1.25 noted February 2017. He denies any dysuria however reports that he has been having difficulty with urination at home and can only sit to urinate. Hyponatremia was also noted with sodium level of 124 which has also improved with IVF's to 130 this morning. From records in April his was not hyponatremic so this was acute. He stated that he has had medication changes approximately 6 months ago but is not sure what medication. He also reports that over the last week that he has had diarrhea, 3-4 loose stools per day. Additional Remarks Patient denies any shortness of breath. Sodium levels and creatinine have improved. IVF are infusing. (Nancy Acevedo) Review of Systems Respiratory Respiratory Remarks No SOB (Nancy Acevedo) Cardiovascular Cardiac Remarks no CP (Nancy Acevedo) Gastrointestinal GI Remarks No abdominal pain (Nancy Acevedo) Musculoskeletal MS: Pain/Stiffness (Nancy Acevedo) Objective Data Data 08/19/17 08/20/17 19:00 07:00 Intake Total 1000 ml Balance 1000 ml IV Total 1000 ml Vital Signs Date Time Temp Pulse Resp B/P (MAP) Pulse Ox O2 Delivery O2 Flow Rate FiO2 08/19/17 08:00 97.5 79 17 134/65 (88) 97 08/19/17 04:00 98.6 73 19 120/65 (83) 95 08/19/17 00:00 98.6 74 19 125/69 (87) 94 08/18/17 20:00 98.1 73 19 120/64 (82) 98 08/18/17 16:00 97.3 77 21 128/59 (82) 97 08/18/17 16:00 97.3 85 21 117/64 (81) 97 08/18/17 16:00 97.1 76 21 131/61 (84) 96 08/18/17 12:00 98.2 77 21 125/58 (80) 96 (Nancy Acevedo) -: 08/19/17 0639 08/19/17 0639 Imaging Last Impressions Renal Ultrasound 08/18/17 0000 Signed Impressions: Service Date/Time: Friday, August 18, 2017 10:23 - CONCLUSION: 1. No hydronephrosis. 2. Mild cortical thinning and bilateral cysts. Vern Fontanez MD Thoracic Spine MRI 08/17/17 0000 Signed Impressions: Service Date/Time: Thursday, August 17, 2017 16:50 - CONCLUSION: Degenerative change of the thoracic spine. No significant disc herniation, canal stenosis, or neural foraminal stenosis is identified. Nate Burton MD Lumbar Spine MRI 08/17/17 0000 Signed Impressions: Service Date/Time: Thursday, August 17, 2017 16:50 - CONCLUSION: Mild degenerative disc disease at L4-L5 and L5-S1, as above. However, no significant spinal canal stenosis or neural foraminal narrowing is present. Nate Burton MD Cervical Spine MRI 08/17/17 0000 Signed Impressions: Service Date/Time: Thursday, August 17, 2017 16:50 - CONCLUSION: Examination quality is degraded by motion artifact. There is mild degenerative disc disease , most severe at C5-C6, as above. However, no significant spinal canal stenosis or neural foraminal stenosis is visualized. Nate Burton MD (Nancy Acevedo) Physical Exam General Appearance: No Acute Distress, Comfortable (Nancy Acevedo) Eyes Eye Exam: Pupils Equal (Nancy Acevedo) Throat Throat Exam: Oral Mucosa Jamul & Moist (Nancy Acevedo) Pulmonary Resp Exam: Clear Bilaterally, Breath Sounds Equal, No Distress (Nancy Acevedo) Cardiology CV Exam: Regular (Nancy Acevedo) Gastrointestinal/Abdomen GI Exam: Soft, Non-Tender, Distended (Nancy Acevedo) Genitourinary Exam: Flank Non-Tender (Nancy Acevedo) Integumentary Skin Exam: Clear, Warm (Nancy Acevedo) Extremeties Extremities Exam: Trace Edema (Nancy Acevedo) Neurologic Neuro Exam: Alert, Awake, Oriented (Nancy Acevedo) Psychiatric Psych Exam: Appropriate Responses (Nancy Acevedo) Assessment/Plan Problem List: (1) Acute kidney injury ICD Codes: N17.9 - Acute kidney failure, unspecified Plan: Acute kidney injury most likely prerenal azotemia with rapid improvement in creatinine from 2.54 to 1.69 from possibly diarrhea. Urine sodium at 16 and FeNa 0.19 % Baseline creatinine at 1.13- 1.25 and mild proteinuria is noted Renal US with no hydronephrosis, mild cortical thinning and bilateral cysts. Plan Creatinine at 1.26 at baseline IVF discontinued and tolerating PO Avoid nephrotoxin agents Monitor urinary output and renal panel. Cleared for discharge from a nephrology standpoint (2) Hyponatremia ICD Codes: E87.1 - Hypo-osmolality and hyponatremia Status: Acute Plan: Hyponatremia with sodium level on admission of 124 which has now improved to 130. Patient is on many medications that could possible contribute to hyponatremia however patient does not report any recent medication changes. Hyponatremia could possible be related to extrarenal losses from diarrhea or SIADH from depression/seizure medication Plan Sodium level is normal at 136 today corrected with IVF's IVF is discontinued tolerating oral fluids. (Nancy Acevedo) Problem List: (1) Acute kidney injury ICD Codes: N17.9 - Acute kidney failure, unspecified Plan: Acute kidney injury most likely prerenal azotemia with rapid improvement in creatinine from 2.54 to 1.69 from possibly diarrhea. Urine sodium at 16 and FeNa 0.19 % Baseline creatinine at 1.13- 1.25 and mild proteinuria is noted Renal US with no hydronephrosis, mild cortical thinning and bilateral cysts. Plan Creatinine at 1.26 at baseline IVF discontinued and tolerating PO Avoid nephrotoxin agents Monitor urinary output and renal panel. Cleared for discharge from a nephrology standpoint. Patient seen and examined, agree with above. If D/C , to follow with PCP. (2) Hyponatremia ICD Codes: E87.1 - Hypo-osmolality and hyponatremia Status: Acute Plan: Hyponatremia with sodium level on admission of 124 which has now improved to 130. Patient is on many medications that could possible contribute to hyponatremia however patient does not report any recent medication changes. Hyponatremia could possible be related to extrarenal losses from diarrhea or SIADH from depression/seizure medication Plan Sodium level is normal at 136 today corrected with IVF's IVF is discontinued tolerating oral fluids. (Jonathan Hunter MD) Nancy Acevedo [facility] Aug 19, 2017 10:38 Jonathan Hunter MD Aug 20, 2017 19:06
[2017-08-19 12:00] VITALS: BP 148/67; PULSE 77; RESP 17; TEMP 97.8; O2SAT 97
--- NOTE | 2017-08-19 13:20 | HHI.PR ---
Subjective Remarks Follow-up hyponatremia, renal failure. Patient reports bright red blood in his stool. He states that he has actually had this for 4 years off and on. He has had multiple episodes overnight and this morning. He has no other complaints at this time. He wants to go home as soon as possible. Objective Vitals Vital Signs Date Time Temp Pulse Resp B/P (MAP) Pulse Ox O2 Delivery O2 Flow Rate FiO2 08/19/17 12:00 97.8 77 17 148/67 (94) 97 08/19/17 08:00 97.5 79 17 134/65 (88) 97 08/19/17 04:00 98.6 73 19 120/65 (83) 95 08/19/17 00:00 98.6 74 19 125/69 (87) 94 08/18/17 20:00 98.1 73 19 120/64 (82) 98 08/18/17 16:00 97.3 77 21 128/59 (82) 97 08/18/17 16:00 97.3 85 21 117/64 (81) 97 08/18/17 16:00 97.1 76 21 131/61 (84) 96 I/O 08/18/17 08/18/17 08/18/17 08/19/17 08/19/17 08/19/17 07:00 15:00 23:00 07:00 15:00 23:00 Intake Total 896 ml 1200 ml 240 ml 1000 ml Output Total 1150 ml Balance -254 ml 1200 ml 240 ml 1000 ml Intake Oral 1200 ml 240 ml IV Total 896 ml 1000 ml Output Urine Total 1150 ml # Voids 5 3 # Bowel Movements 8 0 Result Diagram: 08/19/17 0639 08/19/17 0639 Imaging Last Impressions Renal Ultrasound 08/18/17 0000 Signed Impressions: Service Date/Time: Friday, August 18, 2017 10:23 - CONCLUSION: 1. No hydronephrosis. 2. Mild cortical thinning and bilateral cysts. Vern Fontanez MD Thoracic Spine MRI 08/17/17 0000 Signed Impressions: Service Date/Time: Thursday, August 17, 2017 16:50 - CONCLUSION: Degenerative change of the thoracic spine. No significant disc herniation, canal stenosis, or neural foraminal stenosis is identified. Nate Burton MD Lumbar Spine MRI 08/17/17 0000 Signed Impressions: Service Date/Time: Thursday, August 17, 2017 16:50 - CONCLUSION: Mild degenerative disc disease at L4-L5 and L5-S1, as above. However, no significant spinal canal stenosis or neural foraminal narrowing is present. Nate Burton MD Cervical Spine MRI 08/17/17 0000 Signed Impressions: Service Date/Time: Thursday, August 17, 2017 16:50 - CONCLUSION: Examination quality is degraded by motion artifact. There is mild degenerative disc disease , most severe at C5-C6, as above. However, no significant spinal canal stenosis or neural foraminal stenosis is visualized. Nate Burton MD Objective Remarks General: Obese male in no acute distress. Heart: Regular rate and rhythm. No murmur. Lungs: Clear to auscultation bilaterally. No wheezes, rales, or rhonchi. Breathing is nonlabored. Abdomen: Soft, nontender, nondistended. Positive bowel sounds. Extremities: No lower extremity edema. Psych: Alert and oriented. Neuro: Normal speech. No focal deficits noted. Procedures None Urinary Catheter: No Vascular Central Line Catheter: No A/P Problem List: (1) Acute renal failure ICD Code: N17.9 - Acute kidney failure, unspecified (2) Hyponatremia ICD Code: E87.1 - Hypo-osmolality and hyponatremia Status: Acute (3) Seizure disorder ICD Code: G40.909 - Epilepsy, unspecified, not intractable, without status epilepticus Assessment and Plan 1. Back pain: MRIs of the cervical, thoracic, and lumbar spine show some degenerative disc disease but no significant stenosis. Physical therapy eval pending. Continue pain control. 2. Acute renal failure: Appreciate nephrology recommendations. Improved. Discontinue IV fluids as patient has good oral intake. 3. Hyponatremia: Sodium is improved. 4. Seizure disorder: Continue antiepileptic medications. Seizure precautions. Ativan as needed for seizure. 5. History of DVT: Continue Xarelto. 6. Hypertension: Continue lisinopril. 7. Hypothyroidism: Continue Synthroid. 8. Depression/anxiety: Continue citalopram. 9. Rectal bleeding: Consult gastroenterology. Discharge Planning Discharge home when cleared by gastroenterology. Marco Antonio Riggs MD Aug 19, 2017 13:19
--- NOTE | 2017-08-19 13:21 | HHI.DCPOC ---
Discharge Care Plan Diagnosis: (1) Rectal bleeding (2) Seizure disorder (3) Acute renal failure (4) Hyponatremia (5) CKD (chronic kidney disease) stage 2, GFR 60-89 ml/min (6) Morbid obesity Goals to Promote Your Health * To prevent worsening of your condition and complications * To maintain your health at the optimal level Directions to Meet Your Goals Take your medications as prescribed Follow your dietary instruction Follow activity as directed Keep your appointments as scheduled Take your immunizations and boosters as scheduled If your symptoms worsen call your PCP, if no PCP go to Urgent Care Center or Emergency Room Smoking is Dangerous to Your Health. Avoid second hand smoke Call the 24-hour hour crisis hotline for domestic abuse at Marco Antonio Riggs MD Aug 19, 2017 13:21
--- NOTE | 2017-08-19 14:35 | PD.CONS ---
HPI History of Present Illness This is a 62 year old male with hx CVA on xarelto who presented with back pain and neck pain. He was found to have hypnatremia, renal failure, which have since resolved. GI is consulted for BRBPR. Pt has had intermittent bright red blood on wipe and in bowl after a BM for the last 20 years. No blood has been seen by staff. He denies abd pain, n/v, black tarry stool, weight loss. Never had colonoscopy or EGD. (Lucia Early) PFSH Past Medical History Hypertension History of CVA History of DVT Anxiety/depression Seizure disorder History of migraine headaches Past Surgical History Cholecystectomy Right ankle ORIF (Lucia Early) Coded Allergies: No Known Allergies (Verified Adverse Reaction, Unknown, 05/05/17) Family History Heart disease Liver disease Kidney disease Social History Quit smoking 1984, continues to use chewing tobacco. Denies alcohol or illicit drug use. (Lucia Early) Review of Systems Constitutional: DENIES: Fever Endocrine: DENIES: Polydipsia Eyes: DENIES: Blurred vision Ears, nose, mouth, throat: DENIES: Hearing loss Respiratory: DENIES: Cough Cardiovascular: DENIES: Chest pain Gastrointestinal: COMPLAINS OF: Bloody stools, DENIES: Abdominal pain, Black stools, Nausea, Vomiting Genitourinary: DENIES: Hematuria Musculoskeletal: DENIES: Joint Swelling Integumentary: DENIES: Jaundice Hematologic/lymphatic: DENIES: Bruising Immunologic/allergic: DENIES: Eczema Neurologic: DENIES: Abnormal gait Psychiatric: DENIES: Confusion (Lucia Early) GI Exam Vitals I&O Vital Signs Date Time Temp Pulse Resp B/P (MAP) Pulse Ox O2 Delivery O2 Flow Rate FiO2 08/19/17 12:00 97.8 77 17 148/67 (94) 97 08/19/17 08:00 97.5 79 17 134/65 (88) 97 08/19/17 04:00 98.6 73 19 120/65 (83) 95 08/19/17 00:00 98.6 74 19 125/69 (87) 94 08/18/17 20:00 98.1 73 19 120/64 (82) 98 08/18/17 16:00 97.3 77 21 128/59 (82) 97 08/18/17 16:00 97.3 85 21 117/64 (81) 97 08/18/17 16:00 97.1 76 21 131/61 (84) 96 I/O 08/18/17 08/18/17 08/18/17 08/19/17 08/19/17 08/19/17 07:00 15:00 23:00 07:00 15:00 23:00 Intake Total 896 ml 1200 ml 240 ml 2000 ml Output Total 1150 ml Balance -254 ml 1200 ml 240 ml 2000 ml Intake Oral 1200 ml 240 ml IV Total 896 ml 2000 ml Output Urine Total 1150 ml # Voids 5 3 # Bowel Movements 8 0 Imaging Last Impressions Renal Ultrasound 08/18/17 0000 Signed Impressions: Service Date/Time: Friday, August 18, 2017 10:23 - CONCLUSION: 1. No hydronephrosis. 2. Mild cortical thinning and bilateral cysts. Vern Fontanez MD Thoracic Spine MRI 08/17/17 0000 Signed Impressions: Service Date/Time: Thursday, August 17, 2017 16:50 - CONCLUSION: Degenerative change of the thoracic spine. No significant disc herniation, canal stenosis, or neural foraminal stenosis is identified. Nate Burton MD Lumbar Spine MRI 08/17/17 0000 Signed Impressions: Service Date/Time: Thursday, August 17, 2017 16:50 - CONCLUSION: Mild degenerative disc disease at L4-L5 and L5-S1, as above. However, no significant spinal canal stenosis or neural foraminal narrowing is present. Nate Burton MD Cervical Spine MRI 08/17/17 0000 Signed Impressions: Service Date/Time: Thursday, August 17, 2017 16:50 - CONCLUSION: Examination quality is degraded by motion artifact. There is mild degenerative disc disease , most severe at C5-C6, as above. However, no significant spinal canal stenosis or neural foraminal stenosis is visualized. Nate Burton MD Laboratory Test 08/19/17 06:39 White Blood Count 9.2 TH/MM3 Red Blood Count 3.78 MIL/MM3 Hemoglobin 11.4 GM/DL Hematocrit 33.6 % Mean Corpuscular Volume 88.9 FL Mean Corpuscular Hemoglobin 30.3 PG Mean Corpuscular Hemoglobin Concent 34.0 % Red Cell Distribution Width 13.1 % Platelet Count 426 TH/MM3 Mean Platelet Volume 6.8 FL Neutrophils (%) (Auto) 72.2 % Lymphocytes (%) (Auto) 15.0 % Monocytes (%) (Auto) 9.8 % Eosinophils (%) (Auto) 2.2 % Basophils (%) (Auto) 0.8 % Neutrophils # (Auto) 6.6 TH/MM3 Lymphocytes # (Auto) 1.4 TH/MM3 Monocytes # (Auto) 0.9 TH/MM3 Eosinophils # (Auto) 0.2 TH/MM3 Basophils # (Auto) 0.1 TH/MM3 CBC Comment DIFF FINAL Differential Comment Blood Urea Nitrogen 20 MG/DL Creatinine 1.29 MG/DL Random Glucose 94 MG/DL Calcium Level 8.3 MG/DL Uric Acid 4.1 MG/DL Sodium Level 136 MEQ/L Potassium Level 4.2 MEQ/L Chloride Level 104 MEQ/L Carbon Dioxide Level 23.5 MEQ/L Anion Gap 9 MEQ/L Estimat Glomerular Filtration Rate 56 ML/MIN Serum Osmolality 288 MOSM/KG Thyroid Stimulating Hormone 3rd Gen 0.116 uIU/ML Random Cortisol 12.3 MCG/DL Physical Examination HEENT: PERRL; normocephalic; atraumatic; no jaundice. CHEST: CTA CARDIAC: RRR ABDOMEN: Soft, obese, nontender; no hepatosplenomegaly; bowel sounds are present in all four quadrants. EXTREMITIES: No clubbing, cyanosis, or edema. SKIN: Normal; no rash; no jaundice. MODEL SET ARTIST: alert (Lucia Early) Assessment and Plan Plan ASSESSMENT - BRBPR - chronic, 20 year hx of bright red blood on wipe and in bowl after BM intermittently. denies other GI sx. never had EGD or colonoscopy. could be hemorrhoids vs diverticular bleed pt requests continuing w/u as outpt. d/w RN, attending physician - anemia - mild, Hgb 11.4 and has been relatively stable. PLAN - outpt colonoscopy - f/u with GI after d/c - notify GI of active bleeding pt seen by myself and Dr Villa and this note is on his behalf (Lucia Early) Physician Comments Patient seen and examined Agree with above Continue with current supportive care Monitor lab Follow-up with GI post discharge (Marck Villa MD) Lucia Early LAB REP Aug 19, 2017 14:35 Marck Villa MD Aug 19, 2017 20:20
[2017-08-19 16:00] VITALS: BP 148/82; PULSE 73; RESP 18; TEMP 97.6; O2SAT 97
[2017-08-19 20:00] VITALS: BP 150/79; PULSE 81; RESP 22; TEMP 98.1; O2SAT 97
[2017-08-20] VITALS: BP 154/72; PULSE 83; RESP 22; TEMP 97.9; O2SAT 96
[2017-08-20] MEDS: TEMAZEPAM 15 MG CAP PO PRN (00:33)
[2017-08-20 04:00] VITALS: BP 162/76; PULSE 75; RESP 20; TEMP 98.2; O2SAT 96
[2017-08-20] MEDS: LEVOTHYROXINE SODIUM 100 MCG TAB PO SCH (05:22)
[2017-08-20 08:00] VITALS: BP 154/68; PULSE 73; RESP 17; TEMP 97.9; O2SAT 95
[2017-08-20] MEDS: LISINOPRIL 20 MG TAB PO SCH (08:46)
[2017-08-20] MEDS: HYDROCHLOROTHIAZIDE 25 MG TAB PO SCH (08:46)
[2017-08-20] MEDS: ZONISAMIDE 100 MG CAP PO SCH (08:46)
[2017-08-20] MEDS: RIVAROXABAN 20 MG TAB PO SCH (08:46)
[2017-08-20] MEDS: levETIRAcetam 500 MG TAB PO SCH (08:46)
[2017-08-20] MEDS: POTASSIUM CHLORIDE 10 MEQ CAP PO SCH (08:47)
[2017-08-20] MEDS: CITALOPRAM HYDROBROMIDE 40 MG TAB PO SCH (08:47)
[2017-08-20] MEDS: carBAMazepine 200 MG TAB PO SCH (08:47)
[2017-08-20] MEDS: DOCUSATE SODIUM 50 MG/SENNA 8.6 MG TAB PO SCH (08:47)
--- NOTE | 2017-08-20 11:54 | HHI.PR ---
Subjective Remarks Patient says he is feeling well. Denies any chest pain or shortness of breath. Says he feels like going home Objective Vital Signs Date Time Temp Pulse Resp B/P (MAP) Pulse Ox O2 Delivery O2 Flow Rate FiO2 08/20/17 08:00 97.9 73 17 154/68 (96) 95 08/20/17 04:00 98.2 75 20 162/76 (104) 96 08/20/17 00:00 97.9 83 22 154/72 (99) 96 08/19/17 20:00 98.1 81 22 150/79 (102) 97 08/19/17 16:00 97.6 73 18 148/82 (104) 97 08/19/17 12:00 97.8 77 17 148/67 (94) 97 I/O 08/19/17 08/19/17 08/19/17 08/20/17 08/20/17 08/20/17 07:00 15:00 23:00 07:00 15:00 23:00 Intake Total 240 ml 2000 ml 760 ml 360 ml Balance 240 ml 2000 ml 760 ml 360 ml Intake Oral 240 ml 760 ml 360 ml IV Total 2000 ml # Voids 3 3 3 # Bowel Movements 0 1 Result Diagram: 08/19/17 0639 08/19/17 0639 Objective Remarks GENERAL: Patient appears comfortable. SKIN: Warm and dry. HEAD: Normocephalic. EYES: No scleral icterus. No injection or drainage. NECK: Supple, trachea midline. No JVD or lymphadenopathy. CARDIOVASCULAR: Regular rate and rhythm without murmurs, gallops, or rubs. RESPIRATORY: Breath sounds equal bilaterally. No accessory muscle use. GASTROINTESTINAL: Abdomen soft, non-tender, nondistended. MUSCULOSKELETAL: No cyanosis, or edema. BACK: Nontender without obvious deformity. No CVA tenderness. A/P Assessment and Plan //Back pain: MRIs of the cervical, thoracic, and lumbar spine show some degenerative disc disease but no significant stenosis. Physical therapy eval pending. Continue pain control. = PT recommends home with no PT. Pain is stable. //Acute renal failure: Appreciate nephrology recommendations. Improved. Discontinue IV fluids as patient has good oral intake. = Resolved. Follow-up with oncology as outpatient. Discontinue enalapril. // Hyponatremia: Sodium is improved. // Seizure disorder: Continue antiepileptic medications. Seizure precautions. Ativan as needed for seizure. // History of DVT: Continue Xarelto. //Hypertension: Continue lisinopril. // Hypothyroidism: Continue Synthroid. TSH 1.1. Repeat as outpatient. // Depression/anxiety: Continue citalopram. // Rectal bleeding: Consult gastroenterology. Discharge Planning Discharge home. Follow-up primary care. Nima Greer MD Aug 20, 2017 11:54
--- NOTE | 2017-08-20 11:57 | HHI.DS ---
Discharge Summary Admission Date Aug 17, 2017 at 17:50 Discharge Date: Aug 20, 2017 Admitting Diagnosis Hyponatremia, acute kidney injury (1) Acute renal failure ICD Code: N17.9 - Acute kidney failure, unspecified (2) Hyponatremia ICD Code: E87.1 - Hypo-osmolality and hyponatremia Status: Acute (3) Seizure disorder ICD Code: G40.909 - Epilepsy, unspecified, not intractable, without status epilepticus Procedures None Brief History - From Admission Patient is a 62-year-old male who presented to the emergency department with complaints of pain in his neck and upper back that started yesterday. He states that his neck was stiff and he stretched it. After stretching his neck he developed pain in his neck and upper back. The pain is exacerbated by walking and other movements. He states that his legs have been weak. He has seizure disorder and states that his most recent seizure was 1 week ago. He states that his weakness is better at this time. He denies chest pain or dyspnea. He does report paresthesias "behind my elbows and behind my knees". CBC/BMP: 08/19/17 0639 08/19/17 0639 Significant Findings Laboratory Tests Test 08/17/17 16:35 08/17/17 20:14 08/18/17 04:55 08/19/17 06:39 White Blood Count 14.8 TH/MM3 (4.0-11.0) Red Blood Count 4.00 MIL/MM3 (4.50-5.90) 3.79 MIL/MM3 (4.50-5.90) 3.78 MIL/MM3 (4.50-5.90) Hemoglobin 12.1 GM/DL (13.0-17.0) 11.4 GM/DL (13.0-17.0) 11.4 GM/DL (13.0-17.0) Hematocrit 35.3 % (39.0-51.0) 33.2 % (39.0-51.0) 33.6 % (39.0-51.0) Mean Platelet Volume 6.4 FL (7.0-11.0) 6.6 FL (7.0-11.0) 6.8 FL (7.0-11.0) Neutrophils (%) (Auto) 84.2 % (16.0-70.0) 75.9 % (16.0-70.0) 72.2 % (16.0-70.0) Lymphocytes (%) (Auto) 6.3 % (9.0-44.0) Monocytes (%) (Auto) 8.8 % (0.0-8.0) 9.5 % (0.0-8.0) 9.8 % (0.0-8.0) Neutrophils # (Auto) 12.4 TH/MM3 (1.8-7.7) Lymphocytes # (Auto) 0.9 TH/MM3 (1.0-4.8) Monocytes # (Auto) 1.3 TH/MM3 (0-0.9) Blood Urea Nitrogen 26 MG/DL (7-18) 25 MG/DL (7-18) 20 MG/DL (7-18) Creatinine 2.54 MG/DL (0.60-1.30) 1.69 MG/DL (0.60-1.30) Sodium Level 124 MEQ/L (136-145) 130 MEQ/L (136-145) Chloride Level 86 MEQ/L (98-107) 94 MEQ/L (98-107) Estimat Glomerular Filtration Rate 26 ML/MIN (>89) 41 ML/MIN (>89) 56 ML/MIN (>89) Urine Protein 30 mg/dL (NEG-TRACE) Urine Bacteria RARE /hpf (NONE) Urine Mucus FEW /lpf (OCC) Calcium Level 8.4 MG/DL (8.5-10.1) 8.3 MG/DL (8.5-10.1) Thyroid Stimulating Hormone 3rd Gen 0.116 uIU/ML (0.358-3.740) Imaging Last Impressions Renal Ultrasound 08/18/17 0000 Signed Impressions: Service Date/Time: Friday, August 18, 2017 10:23 - CONCLUSION: 1. No hydronephrosis. 2. Mild cortical thinning and bilateral cysts. Vern Fontanez MD Thoracic Spine MRI 08/17/17 0000 Signed Impressions: Service Date/Time: Thursday, August 17, 2017 16:50 - CONCLUSION: Degenerative change of the thoracic spine. No significant disc herniation, canal stenosis, or neural foraminal stenosis is identified. Nate Burton MD Lumbar Spine MRI 08/17/17 0000 Signed Impressions: Service Date/Time: Thursday, August 17, 2017 16:50 - CONCLUSION: Mild degenerative disc disease at L4-L5 and L5-S1, as above. However, no significant spinal canal stenosis or neural foraminal narrowing is present. Nate Burton MD Cervical Spine MRI 08/17/17 0000 Signed Impressions: Service Date/Time: Thursday, August 17, 2017 16:50 - CONCLUSION: Examination quality is degraded by motion artifact. There is mild degenerative disc disease , most severe at C5-C6, as above. However, no significant spinal canal stenosis or neural foraminal stenosis is visualized. Nate Burton MD PE at Discharge General: Obese male in no acute distress. Heart: Regular rate and rhythm. No murmur. Lungs: Clear to auscultation bilaterally. No wheezes, rales, or rhonchi. Breathing is nonlabored. Abdomen: Soft, nontender, nondistended. Positive bowel sounds. Extremities: No lower extremity edema. Psych: Alert and oriented. Neuro: Normal speech. No focal deficits noted. Hospital Course //Back pain: MRIs of the cervical, thoracic, and lumbar spine show some degenerative disc disease but no significant stenosis. Physical therapy eval pending. Continue pain control. = PT recommends home with no PT. Pain is stable. //Acute renal failure: Appreciate nephrology recommendations. Improved. Discontinue IV fluids as patient has good oral intake. = Resolved. Follow-up with oncology as outpatient. Discontinue enalapril. // Hyponatremia: Sodium is improved. // Seizure disorder: Continue antiepileptic medications. Seizure precautions. Ativan as needed for seizure. // History of DVT: Continue Xarelto. //Hypertension: Continue lisinopril. // Hypothyroidism: Continue Synthroid. TSH 1.1. Repeat as outpatient. // Depression/anxiety: Continue citalopram. // Rectal bleeding: Consult gastroenterology. Discharge Planning Discharge home. Follow-up primary care. Pt Condition on Discharge: Good Discharge Disposition: Discharge Home Discharge Time: > 30 minutes Discharge Instructions DIET: Follow Instructions for: As Tolerated, No Restrictions Activities you can perform: Regular-No Restrictions Follow up Referrals: Gastroenterology - 2 Weeks with Marck Villa MD Please bring Photo ID and Insurance Card Nephrology - 1 Month with Jonathan Hunter MD PCP Follow-up - 1 Week with Toyin Martin MD Staci with Dr. Martin office stated if its a follow up from a Hospital, they need the patient to call and schedule the appointment. Informed patient to call and set up appointment to be seen in 1 week, Provided patient with address and telephone number. Continued Medications: Alprazolam (Alprazolam) 0.5 Mg Tab 0.5 MG PO Q4H PRN for ANXIETY, TAB 0 Refills Carbamazepine (Carbamazepine) 200 Mg Tab 200 MG PO TID, #60 TAB 0 Refills Citalopram (Citalopram) 40 Mg Tab 40 MG PO DAILY for Control Depression, #30 TAB 0 Refills Hydrochlorothiazide (Hydrochlorothiazide) 25 Mg Tab 25 MG PO DAILY, #30 TAB 0 Refills Levetiracetam (Levetiracetam) 500 Mg Tab 500 MG PO BID for Control Seizures, #60 TAB 0 Refills Levothyroxine (Levothyroxine) 100 Mcg Tab 100 MCG PO DAILY for Thyroid, #30 TAB 0 Refills Lisinopril (Lisinopril) 20 Mg Tab 20 MG PO DAILY, #30 TAB 0 Refills Potassium Chloride ER (Potassium Chloride ER) 10 Meq Cap 10 MEQ PO DAILY for Electrolyte Replacement, #30 CAP 0 Refills Rivaroxaban (Xarelto) 20 Mg Tab 20 MG PO DAILY for Blood Clot Prevention, TAB 0 Refills Temazepam (Temazepam) 15 Mg Cap 15 MG PO HS PRN for INSOMNIA, #30 CAP 0 Refills Zonisamide (Zonisamide) 100 Mg Cap 200 MG PO DAILY for Control Seizures, #30 CAP 0 Refills Discontinued Medications: Enalapril (Enalapril) 5 Mg Tab 5 MG PO DAILY, #30 TAB 0 Refills Nima Greer MD Aug 20, 2017 11:57
--- NOTE | 2017-08-20 12:38 | HHI.GIFU ---
Subjective Remarks Morbidly obese male resting in the bed No complaints of nausea, vomiting, diarrhea, or constipation No abdominal pain Plan is for discharge today per case management and patient (Shae Velazquez) Objective Vitals I&O Vital Signs Date Time Temp Pulse Resp B/P (MAP) Pulse Ox O2 Delivery O2 Flow Rate FiO2 08/20/17 08:00 97.9 73 17 154/68 (96) 95 08/20/17 04:00 98.2 75 20 162/76 (104) 96 08/20/17 00:00 97.9 83 22 154/72 (99) 96 08/19/17 20:00 98.1 81 22 150/79 (102) 97 08/19/17 16:00 97.6 73 18 148/82 (104) 97 I/O 08/19/17 08/19/17 08/19/17 08/20/17 08/20/17 08/20/17 07:00 15:00 23:00 07:00 15:00 23:00 Intake Total 240 ml 2000 ml 760 ml 360 ml Balance 240 ml 2000 ml 760 ml 360 ml Intake Oral 240 ml 760 ml 360 ml IV Total 2000 ml # Voids 3 3 3 # Bowel Movements 0 1 Imaging Last Impressions Renal Ultrasound 08/18/17 0000 Signed Impressions: Service Date/Time: Friday, August 18, 2017 10:23 - CONCLUSION: 1. No hydronephrosis. 2. Mild cortical thinning and bilateral cysts. Vern Fontanez MD Thoracic Spine MRI 08/17/17 0000 Signed Impressions: Service Date/Time: Thursday, August 17, 2017 16:50 - CONCLUSION: Degenerative change of the thoracic spine. No significant disc herniation, canal stenosis, or neural foraminal stenosis is identified. Nate Burton MD Lumbar Spine MRI 08/17/17 0000 Signed Impressions: Service Date/Time: Thursday, August 17, 2017 16:50 - CONCLUSION: Mild degenerative disc disease at L4-L5 and L5-S1, as above. However, no significant spinal canal stenosis or neural foraminal narrowing is present. Nate Burton MD Cervical Spine MRI 08/17/17 0000 Signed Impressions: Service Date/Time: Thursday, August 17, 2017 16:50 - CONCLUSION: Examination quality is degraded by motion artifact. There is mild degenerative disc disease , most severe at C5-C6, as above. However, no significant spinal canal stenosis or neural foraminal stenosis is visualized. Nate Burton MD Physical Exam HEENT:normocephalic; atraumatic; no jaundice. Morbid obese NECK: Neck short, obese CHEST: No obvious shortness of breath CARDIAC: Regular rate and rhythm ABDOMEN: Morbid obese, round, soft, nontender; unable to palpate liver, bowel sounds are present in all four quadrants. EXTREMITIES: 1+ lower extremity edema bilateral. SKIN: Normal; no rash; no jaundice. GREEN PLUMBER: Answers simple questions appropriately (Shae Velazquez) Assessment and Plan Plan ASSESSMENT - BRBPR - chronic, 20 year hx of bright red blood on wipe and in bowl after BM intermittently. denies other GI sx. never had EGD or colonoscopy. could be hemorrhoids vs diverticular bleed pt requests continuing w/u as outpt. d/w RN, attending physician - anemia - mild, Hgb 11.4 and has been relatively stable. 08/20/2017 GI symptoms are controlled, no nausea, vomiting, diarrhea, or constipation PLAN -Case management assisting with discharge planning today - outpt colonoscopy - f/u with GI after d/c - notify GI of active bleeding pt seen by myself and Dr Villa and this note is on his behalf (Shae Velazquez) Physician Comments Patient seen and examined Agree with above Continue with current supportive care Monitor labs Follow-up with GI post discharge (Marck Villa MD) Shae Velazquez Aug 20, 2017 12:38 Marck Villa MD Aug 20, 2017 22:54
== END 2017-08-20 12:54 | disposition home or self-care (01) | DRG 683 ==
LOC: NEPC 15:54 → NEDA 17:50 → N07B 18:50
PROVIDERS: ADMIT Internal Medicine; ATTEND Internal Medicine
DX: N17.9 Acute kidney failure, unspecified (principal); E87.1 Hypo-osmolality and hyponatremia; I12.9 Hypertensive chronic kidney disease with stage 1 through stage 4 chronic kidney disease, or unspecified chronic kidney disease; K92.1 Melena; Z68.41 Body mass index [BMI] 40.0-44.9, adult; N18.2 Chronic kidney disease, stage 2 (mild); E66.01 Morbid (severe) obesity due to excess calories; G40.909 Epilepsy, unspecified, not intractable, without status epilepticus; Z86.73 Personal history of transient ischemic attack (TIA), and cerebral infarction without residual deficits; Z86.718 Personal history of other venous thrombosis and embolism; Z79.02 Long term (current) use of antithrombotics/antiplatelets; F32.9 Major depressive disorder, single episode, unspecified; F41.9 Anxiety disorder, unspecified; E03.9 Hypothyroidism, unspecified; E78.00 Pure hypercholesterolemia, unspecified; G43.909 Migraine, unspecified, not intractable, without status migrainosus; F17.220 Nicotine dependence, chewing tobacco, uncomplicated; D64.9 Anemia, unspecified; M54.9 Dorsalgia, unspecified
CPT/HCPCS: 72141; 72146; 72148; 76775; 80048; 81001; 82533; 82550; 82570; 83735; 83930; 84300; 84443; 84550; 85025; 99285; J1644; J3480; J7030